=== PATIENT | male | born 1945 | race Hispanic/Latino ===

== ENCOUNTER → 2017-11-13 07:10 | Outpatient (CLI) | payer MEDICARE, OTHER, SELFPAY | PROVIDERS: PCP Nurse Practitioner Gerontology; Visit Provider Urology | DX: C61 Malignant neoplasm of prostate (principal) | CPT/HCPCS: 36415; 84153 ==

== ENCOUNTER → 2018-07-06 10:02 | Outpatient (CLI) | payer MEDICARE, OTHER, SELFPAY ==
--- NOTE | 2018-07-06 | DI.CT.S_ITS ---
PROCEDURE: CT ABDOMEN PELVIS WO CON INDICATIONS: PROSTATE CANCER TECHNIQUE: After the administration of oral contrast, 5 mm thick sections acquired from the diaphragms to the symphysis. 5 mm coronal and sagittal reformats were performed. For radiation dose reduction, the following was used: automated exposure control, adjustment of mA and/or kV according to patient size. COMPARISON: None. FINDINGS: Image quality: Excellent. ABDOMEN: Lung bases: Lung bases are clear. Heart size is normal. Solid organs: Liver is normal in size. Multiple liver cysts, the largest of which measured 3.1 and 2.5 cm respectively. No suspicious liver lesions on noncontrast images. Extreme lung bases are clear. Spleen, pancreas, adrenals, and kidneys are unremarkable. Gallbladder is unremarkable. Peritoneum and bowel: Bowel loops demonstrate normal wall thickness and caliber. No free fluid or air. No abscess cavity. Sigmoid diverticulosis without evidence of diverticulitis. Nodes and vessels: No retroperitoneal or mesenteric adenopathy by size criteria. Aorta and inferior vena cava are normal in size. Miscellaneous: No ventral hernias. PELVIS: Genitourinary: Bladder wall thickness is normal. Enlargement of the prostate. No periprosthetic adenopathy. Miscellaneous: No inguinal hernias or adenopathy. Bones: No suspicious bony lesions. No vertebral body compression fractures. IMPRESSION: No evidence of metastatic prostate carcinoma. Dictated by: Franklin Springer M.D. on 07/06/2018 at 11:40 Approved by: Franklin Springer M.D. on 07/06/2018 at 11:54
--- NOTE | 2018-07-06 | DI.NM.S_ITS ---
PROCEDURE: NM BONE SCAN WHOLE BODY RADIOPHARMACEUTICAL: 20.90 mCi Tc-99m MDP IV. INDICATIONS: PROSTATE CANCER TECHNIQUE: Delayed whole-body scintigrams were obtained approximately 3-4 hours after intravenous injection of radiotracer. Anterior and posterior views were acquired from vertex to feet. Additional left and right oblique views of the pelvis were obtained. COMPARISON: [facility], CT, CT ABDOMEN PELVIS WO CON, 07/06/2018, 11:06. FINDINGS: No areas of relative intense radiotracer uptake identified in the osseous skeleton. Relatively mild radiotracer uptake identified in the shoulders bilaterally, the sternoclavicular joints bilaterally, the cervical spine, the lumbar spine in the left hip compatible with osteoarthritis. No areas of photopenia identified in the osseous skeleton. No abnormal soft tissue uptake identified. Activity in the kidneys is normal and symmetric. IMPRESSION: No evidence of osseous metastatic disease. Dictated by: Ekaterina Gibson MD, PhD on 07/06/2018 at 14:52 Approved by: Ekaterina Gibson MD, PhD on 07/06/2018 at 14:54
== END ==
PROVIDERS: PCP Nurse Practitioner Gerontology; Visit Provider Urology
DX: C61 Malignant neoplasm of prostate (principal)
CPT/HCPCS: 74176; 78306; A9503

== ENCOUNTER → 2019-01-19 09:20 | Outpatient (CLI) | payer MEDICARE, OTHER, SELFPAY ==
--- NOTE | 2019-01-19 | DI.MRI.S_ITS ---
PROCEDURE: MR LUMBAR SPINE WO CON INDICATIONS: Low back pain post bending injury TECHNIQUE: Noncontrast sagittal T1 spin echo and T2 fast echo, sagittal STIR, axial T1 and T2 fast spin echo through the lumbar spine. In cases with scoliosis, additional coronal T2 fast spin echo may be performed. COMPARISON: [facility] Outside Film, CR, XR LUMBAR SPINE 2 OR 3 VIEWS, 11/28/2018, 11:08. FINDINGS: Image quality: Excellent. Alignment and Curvature: There is normal bony alignment. Bone Marrow: Marrow is of normal overall signal. No acute vertebral body compression fractures. Spinal Cord: Conus medullaris terminates at the T12-L1 level. Visualized cord demonstrates normal signal and size. Paraspinous Soft Tissues: No paravertebral masses. T11-T12: No canal stenosis or foraminal stenosis. T12-L1: No canal stenosis or foraminal stenosis. L1-L2: Mild chronic disc height loss. Mild posterior disc plus osteophyte. No canal stenosis. No significant foraminal stenosis. Facet joints are unremarkable. L2-L3: Mild chronic disc height loss. Posterior disc bulge plus osteophyte. Borderline canal stenosis. Bilateral foraminal disc bulges. Facet joints are unremarkable. Mild bilateral foraminal narrowing. L3-L4: Mild bilateral foraminal narrowing. Diffuse disc bulge. Borderline canal stenosis. Mild facet hypertrophy. No significant foraminal narrowing. L4-L5: Mild chronic disc height loss. Mild disc bulge. Borderline canal stenosis. Mild facet joint hypertrophy. Mild right foraminal narrowing. L5-S1: Mild chronic disc height loss. Mild disc bulge. No canal stenosis. Mild facet hypertrophy. Mild bilateral foraminal narrowing. IMPRESSION: 1. Multilevel degenerative disc space loss and mild multilevel lower lumbar facet arthropathy. 2. Multilevel disc bulges. 3. Borderline canal stenosis at L2-L3 through L4-L5. Dictated by: Franklin Springer M.D. on 01/19/2019 at 11:43 Approved by: Franklin Springer M.D. on 01/19/2019 at 11:50
== END ==
PROVIDERS: PCP Nurse Practitioner Gerontology; Visit Provider Orthopaedic Surgery Orthopaedic Surgery of the Spine
DX: M47.816 Spondylosis without myelopathy or radiculopathy, lumbar region (principal); M47.817 Spondylosis without myelopathy or radiculopathy, lumbosacral region; M51.26 Other intervertebral disc displacement, lumbar region; M51.27 Other intervertebral disc displacement, lumbosacral region; M48.061 Spinal stenosis, lumbar region without neurogenic claudication; M48.07 Spinal stenosis, lumbosacral region
CPT/HCPCS: 72148

== ENCOUNTER 2020-10-29 18:10 | Observation (INO) | payer MEDICARE, OTHER, SELFPAY ==
[2020-10-29 18:16] VITALS: BP 125/74; PULSE 116; RESP 15; TEMP 37.4; O2SAT 97; BMI 36.3
--- NOTE | 2020-10-29 18:21 | DI.RAD.S_ITS ---
PROCEDURE: XR CHEST 1V INDICATIONS: suspected sepsis TECHNIQUE: One view of the chest was acquired. COMPARISON: None. FINDINGS: Surgical changes and devices: None. Lungs and pleura: Lungs are clear. No pleural effusions or pneumothorax. Mediastinum: Mediastinal contours appear normal. Top normal heart size. Bones and chest wall: No suspicious bony lesions. Overlying soft tissues appear unremarkable. IMPRESSION: No evidence acute pulmonary process. Dictated by: Franklin Springer M.D. on 10/29/2020 at 20:27 Approved by: Franklin Springer M.D. on 10/29/2020 at 20:28
[2020-10-29] MEDS: SODIUM CHLORIDE 0.9% 1,000 ML 1000 ML IV (18:38)
[2020-10-29 18:39] LABS: Add Manual Diff / Slide Review NO; Basophils Absolute Auto 0 /uL (0-100); Basophils Percent Auto 0.3 % (0-2); Eosinophils Absolute Auto 100 /uL (0-450); Eosinophils Percent Auto 0.5 % (2-4); Hematocrit 42.8 % (41-53); Hemoglobin 14.4 g/dL (13.5-17.5); Lymphocytes Absolute Auto 700 /uL (1100-4500); Lymphocytes Percent Auto 5.6 % (25-40); Mean Corpuscular HGB Conc 33.6 % (30-36); Mean Corpuscular Hemoglobin 29.9 PG (26-34); Monocytes Absolute Auto 900 /uL (0-900); Monocytes Percent Auto 7.6 % (3-14); Neutrophils Absolute Auto 10600 /uL (1500-7000); Platelet Count 183 X10^3/uL (150-400); Red Blood Cell Count 4.81 X10^6/uL (4.5-5.9); Red Cell Distribution Width 13.8 % (11.6-14.8); White Blood Cell Count 12.3 X10^3/uL (4.5-11.0)
[2020-10-29 18:50] LABS: INR 1.1 (0.9-1.3); Prothrombin Time 11.9 SECONDS (10.1-12.7)
[2020-10-29 18:51] LABS: PTT Partial Thromboplastin Tim 28 SECONDS (26.4-36.2)
[2020-10-29 18:54] LABS: Alanine Aminotransferase 28 IU/L (<50); Albumin 4.2 g/dL (3.5-5.0); Albumin Globulin Ratio 1.4 (1.0-2.8); Alkaline Phosphatase 83 U/L (38-126); Aspartate Aminotransferase 30 IU/L (17-59); BUN Creatinine Ratio 12.6 (6-22); Bilirubin Total 0.9 mg/dL (0.2-1.3); Blood Urea Nitrogen 24 mg/dL (9-20); Carbon Dioxide 17 mmol/L (22-32); Chloride 105 mmol/L (98-107); Estimated Glomerular Filt Rate 34.7 mL/min (>60); Globulin 3.1 g/dL (1.7-4.1); Glucose 169 mg/dL (80-110); HEMOLYSIS 17 (0-50); Lactate (Lactic Acid) 2.2 mmol/L (0.7-2.1); Lipase 178 U/L (23-300); Sodium 135 mmol/L (137-145); Total Protein 7.3 g/dL (6.3-8.2)
[2020-10-29 19:10] LABS: Procalcitonin 1.97 ng/mL (<0.5)
[2020-10-29 20:21] VITALS: BP 122/64; PULSE 67; RESP 18; O2SAT 99
--- NOTE | 2020-10-29 20:30 | ED_ITS ---
HPI - Recheck/Abnormal Lab/Rx General Chief Complaint: Recheck/Abnormal Lab/Rx Stated Complaint: Postate Biopsy, Chills, Light Headed, Suspects Inf Time Seen by Provider: 10/29/20 18:23 Source: patient Mode of arrival: Ambulatory Limitations: no limitations History of Present Illness HPI narrative: 75-year-old male nonsmoker with history of hypertension presents with a chief complaint of fatigue, fever and chills and some lightheadedness. He states he had been in his normal state of health until the aftermath of a recent prostate biopsy a few days ago. He denies any runny nose or sore throat. He has no chest pain, shortness of breath or cough. He denies nausea, vomiting or diarrhea. He had taken ciprofloxacin as directed by his urologist in the near aftermath but presents tonight under the above-stated circumstances Initial visit (ago): day(s) Related Data Home Medications Medication Instructions Recorded Confirmed atorvastatin [Lipitor] 20 mg PO BEDTIME 10/30/20 10/30/20 clobetasol See Rx Instructions .ROUTE 10/30/20 10/30/20 .COMPLEX PRN febuxostat 40 mg PO DAILY 10/30/20 10/30/20 losartan 25 mg PO DAILY 10/30/20 10/30/20 spironolactone 50 mg PO BEDTIME 10/30/20 10/30/20 sucralfate 1 g PO AC 10/30/20 10/30/20 tamsulosin 0.4 mg PO ONCE PM 10/30/20 10/30/20 Allergies Allergy/AdvReac Type Severity Reaction Status Date / Time Felodipine Allergy Unknown Uncoded 10/29/20 18:15 Lisinopril Allergy Unknown Uncoded 10/29/20 18:15 Terazosin Allergy Unknown Uncoded 10/29/20 18:15 Review of Systems Constitutional Constitutional: Reports chills, Reports fatigue, Reports fever(s), Denies frequent falls, Denies lethargy and Reports weakness Eyes Eyes: Denies change in vision, Denies eye discharge, Denies irritation and Denies loss of vision ENT Ears, Nose, Mouth, and Throat: Denies change in voice, Denies dizziness, Denies neck pain, Denies sore throat and Denies throat swelling Cardiovascular Cardiovascular: Denies chest pain, Denies irregular heart rhythm, Denies lightheadedness, Denies palpitations, Denies dyspnea, Denies dyspnea on exertion and Denies orthopnea Respiratory Respiratory: Denies cough, Denies dyspnea, Denies dyspnea on exertion and Denies wheezing Gastrointestinal Gastrointestinal: Denies abdominal pain, Denies change in bowel habits, Denies diarrhea, Denies nausea and Denies vomiting Musculoskeletal Musculoskeletal: Denies neck pain and Denies numbness Integumentary/Breasts Skin/Breast: Denies pruritus, Denies erythema, Denies rash and Denies wounds Neurologic Neurologic: Denies behavioral changes, Denies confusion, Denies dizziness, Denies frequent falls, Denies loss of vision, Denies numbness and Reports weakness Psychiatric Psychiatric: Denies anxiety, Denies behavioral changes, Denies confusion, Denies depression, Denies homicidal ideation and Denies suicidal ideation Endocrine Endocrine: Reports fatigue, Denies flushing and Denies palpitations Hematologic/Lymphatic Hematologic/Lymphatic: Denies easy bruising Allergic/Immunologic Allergic/Immunologic: Denies urticaria, Denies throat swelling and Denies wheezing Patient History Social History household members: spouse Smoking Status: Unknown if ever smoked Smoking Status: Unknown if ever smoked alcohol intake frequency: holidays/special occasions only Substance Use Type: does not use Exam Narrative Exam Narrative: GENERAL: [75] year old patient appears stated age. Well- nourished, well-developed patient, in mild distress. HEAD: Atraumatic. Normocephalic. EYES: Pupils equal round and reactive. Extraocular motions intact. No scleral icterus. No injection or drainage. ENT: Nose without bleeding, purulent drainage. Throat without erythema, tonsillar hypertrophy or exudate. Airway patent. NECK: Trachea midline. Non tender CARDIOVASCULAR: Tachycardic but regular rhythm without murmurs, gallops, or rubs. RESPIRATORY: Clear to auscultation. Breath sounds equal bilaterally. No wheezes, rales, or rhonchi. GASTROINTESTINAL: Abdomen soft, non-tender, nondistended. EXTREMITIES: No edema or joint tenderness. BACK: Nontender without deformity or crepitance. No flank tenderness. NEURO: AOx3. SKIN: No rash or erythema of visible areas Initial Vital Signs Initial Vital Signs: Vital Signs Temperature 99.3 F 10/29/20 18:16 Pulse Rate 116 H 05/27/21 18:16 Respiratory Rate 15 10/29/20 18:16 Blood Pressure 125/74 10/29/20 18:16 Pulse Oximetry 97 10/29/20 18:16 Course Orders Ordered: ED Orders 10/29/20 18:21 XR chest 1V Stat EKG-12 Lead Stat RT Consult Eval and Treat Now 10/29/20 18:22 Complete Blood Count AUTO DIFF Stat Comprehensive Metabolic Panel Stat D Dimer Urgent Lactate (Lactic Acid) Stat Lipase Stat Magnesium Urgent Partial Thromboplastin Time Stat Procalcitonin Stat Prothrombin Time INR Stat 10/29/20 18:50 Blood Culture Stat 10/29/20 22:09 Education, smoking cessation ONGOING 10/29/20 22:13 Urine Culture Stat 10/29/20 23:02 Respiratory Panel (Film Array) Stat 10/30/20 05:00 Complete Blood Count AUTO DIFF DAILY Comprehensive Metabolic Panel DAILY 10/31/20 05:00 Complete Blood Count AUTO DIFF DAILY Comprehensive Metabolic Panel DAILY 11/01/20 05:00 Complete Blood Count AUTO DIFF DAILY Comprehensive Metabolic Panel DAILY Acetaminophen (Acetaminophen 325 Mg Tablet) 650 mg PO Q6HR PRN PRN Reason: Fever/Mild Pain (1-3) Docusate Sodium (Docusate 100 Mg Capsule) 100 mg PO BID [facility] Piperacillin Sod/Tazobactam (Sod 4.5 gm/ Sodium Chloride) 100 mls @ 25 mls/hr IV Q6H [facility] Last Admin: 10/30/20 01:29 Dose: 25 mls/hr Documented by: CHITRA Magnesium Hydroxide (Magnesium Hydroxide 30 Ml Udc) 30 ml PO DAILY PRN PRN Reason: Constipation Naloxone HCl (Naloxone 0.4 Mg/Ml Vial) 0.2 mg IV Q2MIN PRN PRN Reason: Opiate Reversal Ondansetron HCl (Ondansetron 4 Mg/2 Ml Inj) 4 mg IV Q8HR PRN PRN Reason: Nausea And Vomiting Oxycodone HCl (Oxycodone Ir 5 Mg Tablet) 5 mg PO Q6HR PRN PRN Reason: Pain, Moderate (4-6) Pantoprazole Sodium (Pantoprazole Dr 20 Mg Tablet) 20 mg PO 0600 [facility] Sennosides (Sennosides 8.6 Mg Tablet) 17.2 mg PO BEDTIME [facility] Discontinued Medications Hydromorphone HCl (Hydromorphone 1 Mg Inj) 1 mg IV NOW ONE Stop: 10/29/20 22:39 Last Admin: 10/30/20 01:28 Dose: Not Given Documented by: CHITRA Sodium Chloride (Normal Saline 0.9%) 1,000 mls @ 1,000 mls/hr IV BOLUS ONE Stop: 10/29/20 19:20 Last Infusion: 10/29/20 20:31 Dose: 0 mls/hr Documented by: Admin: 10/29/20 18:38 Dose: 1,000 mls/hr Documented by: ERAN Sodium Chloride (Normal Saline 0.9%) 1,776 mls @ 592 mls/hr 30 ml/kg infuse over 3 hr (1776 ml) IV NOW ONE Stop: 10/29/20 23:33 Last Infusion: 10/29/20 22:30 Dose: 0 mls/hr Documented by: Admin: 10/29/20 21:15 Dose: 592 mls/hr Documented by: ERAN Ceftriaxone Sodium 2,000 mg/ (Sodium Chloride) 100 mls @ 200 mls/hr IV NOW ONE Stop: 10/29/20 20:40 Last Infusion: 10/29/20 22:01 Dose: 0 mls/hr Documented by: Admin: 10/29/20 21:15 Dose: 200 mls/hr Documented by: ERAN Piperacillin Sod/Tazobactam (Sod 4.5 gm/ Sodium Chloride) 100 mls @ 25 mls/hr IV Q6HR [facility] Vital Signs Vital signs: Vital Signs - 8 hr 10/29/20 20:21 Pulse Rate 67 Respiratory Rate 18 Blood Pressure 122/64 Pulse Oximetry 99 MDM - Recheck/Abnormal Lab/Rx Lab Data Result diagrams: 10/29/20 18:22 10/29/20 18:22 Labs: Lab Results 10/29/20 10/29/20 10/29/20 Range/Units 18:22 18:22 18:22 WBC 12.3 H (4.5-11.0) X10^3/uL RBC 4.81 (4.5-5.9) X10^6/uL Hgb 14.4 (13.5-17.5) g/dL Hct 42.8 (41-53) % MCV 89.0 (80-100) fL MCH 29.9 (26-34) PG MCHC 33.6 (30-36) % RDW 13.8 (11.6-14.8) % Plt Count 183 (150-400) X10^3/uL Neut % (Auto) 86.0 H (50-75) % Lymph % (Auto) 5.6 L (25-40) % Tyrrell % (Auto) 7.6 (3-14) % Eos % (Auto) 0.5 L (2-4) % Baso % (Auto) 0.3 (0-2) % Neut # (Auto) 88589 H (4505-2185) /uL Lymph # (Auto) 700 L (7755-3987) /uL Tyrrell # (Auto) 900 (0-900) /uL Eos # (Auto) 100 (0-450) /uL Baso # (Auto) 0 (0-100) /uL PT 11.9 (10.1-12.7) SECONDS INR 1.1 (0.9-1.3) APTT 28 (26.4-36.2) SECONDS D-Dimer (<230) ng/mL Sodium 135 L (137-145) mmol/L Potassium 4.0 (3.4-5.1) mmol/L Chloride 105 (98-107) mmol/L Carbon Dioxide 17 L (22-32) mmol/L BUN 24 H (9-20) mg/dL Creatinine 1.90 H (0.66-1.25) mg/dL Estimated GFR 34.7 L (>60) mL/min BUN/Creatinine Ratio 12.6 (6-22) Glucose 169 H (80-110) mg/dL Lactate (0.7-2.1) mmol/L Calcium 9.0 (8.4-10.2) mg/dL Magnesium (1.6-2.3) mg/dL Total Bilirubin 0.9 (0.2-1.3) mg/dL AST 30 (17-59) IU/L ALT 28 (<50) IU/L Alkaline Phosphatase 83 (38-126) U/L Total Protein 7.3 (6.3-8.2) g/dL Albumin 4.2 (3.5-5.0) g/dL Globulin 3.1 (1.7-4.1) g/dL Albumin/Globulin Ratio 1.4 (1.0-2.8) Lipase 178 (23-300) U/L Procalcitonin 1.97 H (<0.5) ng/mL 10/29/20 10/29/20 10/29/20 Range/Units 18:22 18:22 18:22 WBC (4.5-11.0) X10^3/uL RBC (4.5-5.9) X10^6/uL Hgb (13.5-17.5) g/dL Hct (41-53) % MCV (80-100) fL MCH (26-34) PG MCHC (30-36) % RDW (11.6-14.8) % Plt Count (150-400) X10^3/uL Neut % (Auto) (50-75) % Lymph % (Auto) (25-40) % Tyrrell % (Auto) (3-14) % Eos % (Auto) (2-4) % Baso % (Auto) (0-2) % Neut # (Auto) (2299-6441) /uL Lymph # (Auto) (8569-6833) /uL Tyrrell # (Auto) (0-900) /uL Eos # (Auto) (0-450) /uL Baso # (Auto) (0-100) /uL PT (10.1-12.7) SECONDS INR (0.9-1.3) APTT (26.4-36.2) SECONDS D-Dimer 712 H (<230) ng/mL Sodium (137-145) mmol/L Potassium (3.4-5.1) mmol/L Chloride (98-107) mmol/L Carbon Dioxide (22-32) mmol/L BUN (9-20) mg/dL Creatinine (0.66-1.25) mg/dL Estimated GFR (>60) mL/min BUN/Creatinine Ratio (6-22) Glucose (80-110) mg/dL Lactate 2.2 H (0.7-2.1) mmol/L Calcium (8.4-10.2) mg/dL Magnesium 1.5 L (1.6-2.3) mg/dL Total Bilirubin (0.2-1.3) mg/dL AST (17-59) IU/L ALT (<50) IU/L Alkaline Phosphatase (38-126) U/L Total Protein (6.3-8.2) g/dL Albumin (3.5-5.0) g/dL Globulin (1.7-4.1) g/dL Albumin/Globulin Ratio (1.0-2.8) Lipase (23-300) U/L Procalcitonin (<0.5) ng/mL 10/29/20 Range/Units 21:00 WBC (4.5-11.0) X10^3/uL RBC (4.5-5.9) X10^6/uL Hgb (13.5-17.5) g/dL Hct (41-53) % MCV (80-100) fL MCH (26-34) PG MCHC (30-36) % RDW (11.6-14.8) % Plt Count (150-400) X10^3/uL Neut % (Auto) (50-75) % Lymph % (Auto) (25-40) % Tyrrell % (Auto) (3-14) % Eos % (Auto) (2-4) % Baso % (Auto) (0-2) % Neut # (Auto) (0527-0883) /uL Lymph # (Auto) (9322-8694) /uL Tyrrell # (Auto) (0-900) /uL Eos # (Auto) (0-450) /uL Baso # (Auto) (0-100) /uL PT (10.1-12.7) SECONDS INR (0.9-1.3) APTT (26.4-36.2) SECONDS D-Dimer (<230) ng/mL Sodium (137-145) mmol/L Potassium (3.4-5.1) mmol/L Chloride (98-107) mmol/L Carbon Dioxide (22-32) mmol/L BUN (9-20) mg/dL Creatinine (0.66-1.25) mg/dL Estimated GFR (>60) mL/min BUN/Creatinine Ratio (6-22) Glucose (80-110) mg/dL Lactate 2.2 H (0.7-2.1) mmol/L Calcium (8.4-10.2) mg/dL Magnesium (1.6-2.3) mg/dL Total Bilirubin (0.2-1.3) mg/dL AST (17-59) IU/L ALT (<50) IU/L Alkaline Phosphatase (38-126) U/L Total Protein (6.3-8.2) g/dL Albumin (3.5-5.0) g/dL Globulin (1.7-4.1) g/dL Albumin/Globulin Ratio (1.0-2.8) Lipase (23-300) U/L Procalcitonin (<0.5) ng/mL MDM Narrative Medical decision making narrative: 75-year-old male with recent surgical procedure presents with fever and chills as well as tachycardia. He has an elevated white blood cell count, elevated lactate and procalcitonin. He is treated with sepsis protocol including early blood cultures and lactate prior to the administration of antibiotics. He is given 30 cc/kilogram of IV fluid for ideal body weight given BMI greater than 31. Patient is septic, presumed from his recent biopsy and will require admission for stabilization of his condition an ongoing evaluation along with IV antibiotics. Discharge Plan Departure Patient Disposition: Admitted As Inpatient Clinical Impression: Sepsis Qualifiers: Sepsis type: sepsis due to unspecified organism Sepsis acute organ dysfunction status: with acute organ dysfunction Severe sepsis acute organ dysfunction type: unspecified Severe sepsis shock status: without septic shock Qualified Code(s): A41.9 - Sepsis, unspecified organism Admit Date/Time: 10/29/20 22:34 Admit Provider: Cindy West
[2020-10-29 20:35] LABS: Reflexed Lactate in 2 Hours Y
[2020-10-29 21:14] LABS: Lactate 2HR (Lactic Acid Rflx) 2.2 mmol/L (0.7-2.1)
[2020-10-29] MEDS: SODIUM CHLORIDE 0.9% 1,776 ML 592 ML IV (21:15)
[2020-10-29] MEDS: cefTRIAXone 2,000 MG in SODIUM CHLORIDE 0.9% 100 ML 200 ML IV (21:15)
[2020-10-29 22:28] LABS: Magnesium 1.5 mg/dL (1.6-2.3)
--- NOTE | 2020-10-29 22:31 | PC.NURSE ---
Pt received total [address] head's order. Pt received 1L NS per nursing orders,then Dr Head ordered 1776. Dr Head only wanted total 1776,after 2nd order pt received 776ml NS.
[2020-10-29 22:41] LABS: D Dimer 712 ng/mL (<230)
[2020-10-29 23:15] VITALS: BP 135/67; PULSE 69; RESP 18; O2SAT 99
[2020-10-30] VITALS (8 sets, daily range): BP systolic 118–129; BP diastolic 68–74; PULSE 70–77; RESP 16–24; TEMP 36.3–36.8; O2SAT 97–98; BMI 36.3
[2020-10-30] MEDS: PIPERACILLIN/TAZO 4.5 GM in SODIUM CHLORIDE 0.9% 100 ML 25 ML IV ×2 (01:29→06:40)
[2020-10-30 01:36] LABS: Adenovirus Not Detected (Not Detect); B. parapertussis Not Detected (Not Detecte); Bordetella pertussis Not Detected (Not Detecte); Chlamydophila pneumoniae Not Detected (Not Detect); Coronavirus 229E Not Detected (Not Detect); Coronavirus HKU1 Not Detected (Not Detect); Coronavirus NL 63 Not Detected (Not Detect); Coronavirus OC43 Not Detected (Not Detect); Human Metapneumovirus Not Detected (Not Detect); Human Rhinovirus/Enterovirus Not Detected (Not Detect); Influenza A Not Detected (Not Detect); Influenza B Not Detected (Not Detect); Mycoplasma pneumoniae Not Detected (Not Detect); Parainfluenza Virus 1 Not Detected (Not Detect); Parainfluenza Virus 2 Not Detected (Not Detect); Parainfluenza Virus 3 Not Detected (Not Detect); Parainfluenza Virus 4 Not Detected (Not Detect); Respiratory Syncytial Virus Not Detected (Not Detect); SARS- CoV-2 Not Detected (Not Detecte)
--- NOTE | 2020-10-30 03:33 | PC.NURSE ---
Got to unit at 22:30 from ED. VSS. Erasmo pain. No nausea or vomiting. Independent in room. Calls appropriately, bed low, call light within reach.
--- NOTE | 2020-10-30 04:56 | P.HP_ITS ---
History of Present Illness History of Present Illness Date Patient Seen: 10/29/20 Time Patient Seen: 22:15 Chief complaint: Postate Biopsy, Chills, Light Headed, Suspects Inf Narrative: Patient is a 75-year-old male Star Aquino with a chief complaint of fatigue, fever and chills and some lightheadedness that presented last night. He states he had been in his normal state of health until the aftermath of a recent prostate biopsy on 10/27/[address] Laureano at [facility]. Patient states that he has had elevated PSA is required to yearly prostate biop sies to monitor for prostate cancer. He has not had this issue before. Patient states that he often has some mild bleeding in his urine in the 1st few days following the biopsy but then quickly resolves he states he has had blood in his urine the past 2 days but as of today he has had none and no blood in his stool, swelling or inflammation of his genitals or rectal area. He denies any runny nos e or sore throat. He has no chest pain, shortness of breath or cough. He denies nausea, vomiting or diarrhea. He had taken ciprofloxacin as directed by his urologist in the near aftermath but presents tonight under the above-stated circumstances. Patient states he also is having shortness of breath with activity which she has been experiencing over the past year whenever he lifts something heavy he can walk approximately 30-35 minute it is or 1 mi on his treadmill without shortness of breath but any lifting activities cause of shortness of breath. 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 Patient's vitals upon admit temp 99.3?, BP 125/74, HR 116, RR 15, O2 saturation 97% on room air, PaO2 96, FiO2 22. Patient's labs upon admit WBC 12.3 with a left shift, neut# 10,600, sofa score of 1, Na 135, BUN 24, HC03 17, creatinine 1.9, glucose 169, EGFR 34.7, lactate 2.2, lipase WNL, procalcitonin 1.97, D- dimer 712 likely related to prostate biopsy but maybe you a result of infection. Respiratory panel negative, COVID negative, CXR:No evidence acute pulmonary process. Patient History Medical History (Updated 10/30/20 @ 05:10 by AUSTIN Aguayo-DEMETRIS) CKD stage 3 secondary to diabetes History of gastric ulcer History of rectal bleeding Hypertension, essential Obesity (BMI 35.0-39.9 without comorbidity) Peptic ulcer disease Psoriasis Sleep apnea Surgical History (Updated 10/30/20 @ 05:10 by AUSTIN Aguayo-DEMETRIS) History of umbilical hernia repair Hx of blepharoplasty Family & Social History Family History (Updated 10/30/20 @ 05:11 by AUSTIN Aguayo-DEMETRIS) Father Cirrhosis Mother Gallstones Social History: household members spouse, retired, in [place] Prior Living Arrangements Apartment/Condo Safety & Behavioral: Feels Safe in Current Yes Environment Been Physically Hurt or No Threatened By a Person Tobacco & Substance use: Smoking Status never smoked alcohol intake frequency quit 5 years ago Substance Use Type does not use Meds Home Medications and Allergies Home Medications Medication Instructions Recorded Confirmed Type Mycelex 1 % TOPICAL PRN PRN 10/30/20 10/30/20 History Vitamin D3 2,000 units PO DAILY 10/30/20 10/30/20 History aspirin [Adult Low Dose Aspirin] 81 mg PO DAILY 10/30/20 10/30/20 History atorvastatin [Lipitor] 20 mg PO BEDTIME 10/30/20 10/30/20 History cetirizine [Zyrtec] 10 mg PO DAILY PRN 10/30/20 10/30/20 History clobetasol See Rx Instructions .ROUTE 10/30/20 10/30/20 History .COMPLEX PRN colchicine 0.6 mg PO PRN PRN 10/30/20 10/30/20 History famotidine 20 mg PO BID 10/30/20 10/30/20 History febuxostat 40 mg PO DAILY 10/30/20 10/30/20 History losartan 25 mg PO DAILY 10/30/20 10/30/20 History omeprazole 20 mg PO DAILY 10/30/20 10/30/20 History ranitidine HCl [Zantac] 150 mg PO PRN PRN 10/30/20 10/30/20 History spironolactone 50 mg PO BEDTIME 10/30/20 10/30/20 History sucralfate 1 g PO AC 10/30/20 10/30/20 History tamsulosin 0.4 mg PO ONCE PM 10/30/20 10/30/20 History Allergies Allergy/AdvReac Type Severity Reaction Status Date / Time Felodipine Allergy Unknown Uncoded 10/29/20 18:15 Lisinopril Allergy Unknown Uncoded 10/29/20 18:15 Terazosin Allergy Unknown Uncoded 10/29/20 18:15 Review of Systems Review of Systems ROS: Yes All systems reviewed with the patient and are negative except as otherwise documented Exam Vital Signs (past 8 hours): - 10/29/20 23:15 10/30/20 00:00 10/30/20 01:58 Temperature 98.3 F Pulse Rate 69 77 Respiratory Rate 18 24 Blood Pressure 135/67 120/68 Pulse Oximetry 99 98 98 Oxygen Delivery Method Room Air Oxygen Flow Rate 0 Narrative Exam Narrative: General: Patient is a well-developed, well-nourished in no distress at this time. HEENT: Normocephalic, atraumatic, extraocular muscles intact, oral pharynx is clear and mucous membranes are moist. Neck is supple and symmetric, trachea is midline, no adenopathy, no thyroid enlargement, nontender, no masses palpated. Negative for JVD Chest: Normal AP diameter and contour without kyphoscoliosis, no nasal flaring, retractions, or tachypneic labored Lungs: Auscultation of all lung florian are clear without adventitious sounds, wheezes, rhonchi, or rales. Cardio: S1 & S2 with regular rate and rhythm without murmur, rubs, or gallops, no carotid bruit, no cardiac pulsations present. Abdomen: Soft nontender, negative for organomegaly, or masses. Bowel sounds are present in all 4 quadrants without guarding or rebound, no CVA tenderness. Genitals/Rectal: Upon visual inspection no erythema, inflammation pain or signs of infection Musculoskeletal: Muscle strength and tone are equal within normal limits, no deformity, crepitus, effusions, cyanosis, clubbing or edema present. Full range of motion intact radial and pedal pulses are normal. Skin: Warm dry and intact without rashes, ulcerations or petechiae. Neuro: Alert and orientated x3, strength is +5/5 in all extremities, sensation to touch intact, no gross deficits noted of cranial nerves. Psych: Patient has a well-kept appearance, appropriate affect, mental status attitude thought context and judgment are appropriate for age. Objective Labs Result Diagrams: 10/29/20 18:22 10/29/20 18:22 Labs: Laboratory Results - last 24 hr 10/29/20 10/29/20 10/29/20 18:22 18:22 18:22 WBC 12.3 H RBC 4.81 Hgb 14.4 Hct 42.8 MCV 89.0 MCH 29.9 MCHC 33.6 RDW 13.8 Plt Count 183 Neut % (Auto) 86.0 H Lymph % (Auto) 5.6 L Alexander % (Auto) 7.6 Eos % (Auto) 0.5 L Baso % (Auto) 0.3 Neut # (Auto) 32396 H Lymph # (Auto) 700 L Alexander # (Auto) 900 Eos # (Auto) 100 Baso # (Auto) 0 PT 11.9 INR 1.1 APTT 28 D-Dimer Sodium 135 L Potassium 4.0 Chloride 105 Carbon Dioxide 17 L BUN 24 H Creatinine 1.90 H Estimated GFR 34.7 L BUN/Creatinine Ratio 12.6 Glucose 169 H Lactate Calcium 9.0 Magnesium Total Bilirubin 0.9 AST 30 ALT 28 Alkaline Phosphatase 83 Total Protein 7.3 Albumin 4.2 Globulin 3.1 Albumin/Globulin Ratio 1.4 Lipase 178 Procalcitonin 1.97 H Chlamy pneumoniae PCR Adenovirus (PCR) B. pertussis DNA (PCR) B.parapertussis DNA PCR Coronavirus OC43 (PCR) Coronavirus HKU1 (PCR) Coronavirus 229E (PCR) SARS-CoV-2 (PCR) Coronavirus NL63 (PCR) Human Metapneumovir PCR Influenza Type A (PCR) Influenza Type B (PCR) M. pneumoniae (PCR) Parainfluenza 1 (PCR) Parainfluenza 2 (PCR) Parainfluenza 3 (PCR) Parainfluenza 4 (PCR) RSV (PCR) Entero/Rhino (PCR) 10/29/20 10/29/20 10/29/20 18:22 18:22 18:22 WBC RBC Hgb Hct MCV MCH MCHC RDW Plt Count Neut % (Auto) Lymph % (Auto) Alexander % (Auto) Eos % (Auto) Baso % (Auto) Neut # (Auto) Lymph # (Auto) Alexander # (Auto) Eos # (Auto) Baso # (Auto) PT INR APTT D-Dimer 712 H Sodium Potassium Chloride Carbon Dioxide BUN Creatinine Estimated GFR BUN/Creatinine Ratio Glucose Lactate 2.2 H Calcium Magnesium 1.5 L Total Bilirubin AST ALT Alkaline Phosphatase Total Protein Albumin Globulin Albumin/Globulin Ratio Lipase Procalcitonin Chlamy pneumoniae PCR Adenovirus (PCR) B. pertussis DNA (PCR) B.parapertussis DNA PCR Coronavirus OC43 (PCR) Coronavirus HKU1 (PCR) Coronavirus 229E (PCR) SARS-CoV-2 (PCR) Coronavirus NL63 (PCR) Human Metapneumovir PCR Influenza Type A (PCR) Influenza Type B (PCR) M. pneumoniae (PCR) Parainfluenza 1 (PCR) Parainfluenza 2 (PCR) Parainfluenza 3 (PCR) Parainfluenza 4 (PCR) RSV (PCR) Entero/Rhino (PCR) 10/29/20 10/29/20 21:00 23:02 WBC RBC Hgb Hct MCV MCH MCHC RDW Plt Count Neut % (Auto) Lymph % (Auto) Alexander % (Auto) Eos % (Auto) Baso % (Auto) Neut # (Auto) Lymph # (Auto) Alexander # (Auto) Eos # (Auto) Baso # (Auto) PT INR APTT D-Dimer Sodium Potassium Chloride Carbon Dioxide BUN Creatinine Estimated GFR BUN/Creatinine Ratio Glucose Lactate 2.2 H Calcium Magnesium Total Bilirubin AST ALT Alkaline Phosphatase Total Protein Albumin Globulin Albumin/Globulin Ratio Lipase Procalcitonin Chlamy pneumoniae PCR Not detected Adenovirus (PCR) Not detected B. pertussis DNA (PCR) Not detected B.parapertussis DNA PCR Not detected Coronavirus OC43 (PCR) Not detected Coronavirus HKU1 (PCR) Not detected Coronavirus 229E (PCR) Not detected SARS-CoV-2 (PCR) Not detected Coronavirus NL63 (PCR) Not detected Human Metapneumovir PCR Not detected Influenza Type A (PCR) Not detected Influenza Type B (PCR) Not detected M. pneumoniae (PCR) Not detected Parainfluenza 1 (PCR) Not detected Parainfluenza 2 (PCR) Not detected Parainfluenza 3 (PCR) Not detected Parainfluenza 4 (PCR) Not detected RSV (PCR) Not detected Entero/Rhino (PCR) Not detected Assessment & Plan Assessment & Plan narrative: Patient admitted for fever of unknown origin with leukocytosis suspected early sepsis. Patient's estimated length of stay to be less than 2 midnights. 1. Fever of unknown origin with presenting tachycardia and tachypnea,(suspect infection/bacteremia with risk of progression to sepsis) acute, present on admission, stable, in the setting of prostate biopsy (elevated PSA-surveillance for prostate cancer) within 48 hours as evidence by elevated white blood cells 12.3 with a left shift, neutrophils 10,600, lactate 2.2, procalcitonin 1.97, D- dimer 712. Sofa score: 1 -vitals upon admit temp 99.3?, BP 125/74, HR 116, RR 15, O2 saturation 97% on room air, PaO2 96, FiO2 22. Patient's labs upon admit WBC 12.3 with a left shift, neut# 10,600, sofa score of 1, Na 135, BUN 24, HC03 17, creatinine 1.9, glucose 169, EGFR 34.7, lactate 2.2, lipase WNL, procalcitonin 1.97, D-dimer 712 likely related to prostate biopsy but maybe you a result of infection. Respiratory panel negative, COVID negative, CXR:No evidence acute pulmonary process. Suspect patient is in early sepsis infection/bacteremia resulting from prostate biopsy and at risk for progressing to sepsis. Patient does not have elevated r espiratory rate altered mentation or hypotension. -patient admitted to acute care medicine, vital signs q.4 hours, intake and output monitored Q shift, weight measure daily, diet: Heart healthy -in the ED patient was fluid resuscitation per sepsis protocol, given Rocephin 2 gms -medication: ordered Zosyn 4.5 mg q.6 hours. Broad-spectrum agent (Gram- negative bacillary bacteremia) with anti pseudomonal activity suspect infection source: -blood and urine Gram stain and cultures ordered, A1c, and daily CBC and CMP. -continue patient's tamsulosin 2. Essential hypertension, chronic, not present on admission secondary to hyperlipidemia, chronic, not present on admission, in the setting chronic kidney disease stage 3 moderate to severe, acute on chronic, present on admission -as evidenced by BUN 24, HC03 17, creatinine 1.9, EGFR 34.7 -Continue patient's: Lipitor, famotidine,febuxostat, losartan, spirolactone. 3. Peptic ulcer disease with a history of gastric ulcer, chronic, not present on admission -Continue patients sucralfate. 4. Obesity as evidenced by BMI of 37.1, acute on chronic, present on admission -consideration will be given to dietary counseling Code status: Full code Surrogate decision maker: Spouse Mercedez ESPARZA PCR: Negative DVT/VTE prophylaxis: Contraindicated due to recent prostate biopsy, history of rectal bleed as well as gastric ulcer bleeding, SCDs only Scores GCS Sarah coma scale eye opening: Spontaneous Sarah coma scale verbal response: Orientated Sarah coma scale motor response: Obey commands [place] coma scale total score: 15 Wells' Criteria for PE Clinical signs and symptoms of DVT: No PE is #1 Dx or equally likely: No Heart rate > 100: Yes Immobilization at least 3 days or surg in previous 4 weeks: No History of PE or DVT: No Hemoptysis: No Malignancy w/Treatment within 6 months or palliative: No Wells' PE Score total: 1.5 Quality MIPS - Admit I confirm the patient?s Advance Care Plan is present, Code status is documented, Surrogate decision maker is in patient?s record [If Yes, STOP here]: Yes
[2020-10-30 06:35] LABS: Alanine Aminotransferase 22 IU/L (<50); Albumin 3.2 g/dL (3.5-5.0); Albumin Globulin Ratio 1.1 (1.0-2.8); Alkaline Phosphatase 59 U/L (38-126); Aspartate Aminotransferase 23 IU/L (17-59); BUN Creatinine Ratio 12.7 (6-22); Bilirubin Total 0.9 mg/dL (0.2-1.3); Blood Urea Nitrogen 20 mg/dL (9-20); Calcium 8.4 mg/dL (8.4-10.2); Carbon Dioxide 20 mmol/L (22-32); Chloride 111 mmol/L (98-107); Globulin 2.9 g/dL (1.7-4.1); Glucose 116 mg/dL (80-110); HEMOLYSIS < 15 (0-50); Potassium 3.7 mmol/L (3.4-5.1); Sodium 137 mmol/L (137-145); Total Protein 6.1 g/dL (6.3-8.2)
[2020-10-30] MEDS: PANTOPRAZOLE DR 20 MG TABLET PO (06:40)
[2020-10-30 06:56] LABS: Add Manual Diff / Slide Review NO; Basophils Absolute Auto 0 /uL (0-100); Basophils Percent Auto 0.3 % (0-2); Eosinophils Absolute Auto 100 /uL (0-450); Eosinophils Percent Auto 1.5 % (2-4); Hematocrit 36.5 % (41-53); Hemoglobin 12.3 g/dL (13.5-17.5); Lymphocytes Absolute Auto 800 /uL (1100-4500); Lymphocytes Percent Auto 9.1 % (25-40); Mean Corpuscular HGB Conc 33.8 % (30-36); Mean Corpuscular Volume 88.7 fL (80-100); Monocytes Absolute Auto 1000 /uL (0-900); Neutrophils Absolute Auto 7200 /uL (1500-7000); Neutrophils Percent Auto 78.1 % (50-75); Platelet Count 151 X10^3/uL (150-400); Red Blood Cell Count 4.12 X10^6/uL (4.5-5.9); Red Cell Distribution Width 13.7 % (11.6-14.8); White Blood Cell Count 9.2 X10^3/uL (4.5-11.0)
[2020-10-30 06:58] LABS: Hemoglobin A1C% w Est Avg Glu 6.3 % (4.0-6.0)
[2020-10-30] MEDS: SUCRALFATE 1 GM TABLET PO ×2 (07:48→12:17)
[2020-10-30] MEDS: DOCUSATE 100 MG CAPSULE PO (08:52)
[2020-10-30] MEDS: ASPIRIN 81 MG CHEW TAB PO (08:52)
[2020-10-30] MEDS: FAMOTIDINE 20 MG TABLET PO (08:52)
[2020-10-30] MEDS: PIPERACILLIN/TAZO 3.375 GM in SODIUM CHLORIDE 0.9% 100 ML 25 ML IV (08:53)
[2020-10-30] MEDS: LOSARTAN 25 MG TABLET PO (09:06)
--- NOTE | 2020-10-30 13:20 | CM.DANOTE ---
Discharge Planning/Care Management DCP: assessment: case received, EMR reviewed and met pt and his Mercedez during Team Bedside Rounds. Dr. Soares stated that pt should be able to d/c home later today on oral antibiotics. Pt stated he was already feeling much better. Admission: night of 10/29 to care of hospitalist team. Payer: Medicare and [employer] Admission status: OBS: confirmed by UR RN PCP: Anju Beverly: listed. A dc order is in place. P: home today CM Discharge Assessment Start: 10/30/20 13:19 Freq: Status: Active Protocol: Document 10/30/20 13:20 ITV (Rec: 10/30/20 13:20 ITV [id number]) Discharge Planning Assessment Advance Directives? No History Provided By Patient,Medical Record Prior Living Arrangements Apartment/Condo Household Members spouse Independent with ADL's Yes Is patient alert and oriented? Yes Discharge Plan Home
[2020-10-30 13:29] LABS: Bacteria Urine None Seen
[2020-10-30 13:41] LABS: Appearance Urine UA CLEAR; Bilirubin Urine UA NEGATIVE (NEGATIVE); Color Urine UA YELLOW; Glucose Urine UA NEGATIVE (Negative); Ketones Urine UA NEGATIVE (NEGATIVE); Leukocyte Esterase Urine UA 1+ (NEGATIVE); Nitrite Urine UA NEGATIVE (Negative); Occult Blood Urine UA 3+ (Negative); Protein Urine UA NEGATIVE (Negative); Specific Gravity Urine UA 1.015 (1.000-1.035); Urobilinogen Urine UA 0.2 E.U./dL (0.2); pH Urine UA 5.5 (4.5-8.0)
[2020-10-30 13:46] LABS: Culture Indicated Urine Specimen Cultured; RBC Urine 30-100/HPF (0-5/HPF); WBC Urine 5-10/HPF (0-5/HPF)
--- NOTE | 2020-10-30 14:09 | PM.DS.1 ---
History of Present Illness History of Present Illness Date Patient Seen: 10/30/20 Time Patient Seen: 14:09 Chief complaint: Postate Biopsy, Chills, Light Headed, Suspects Inf Narrative: Per Cindy West, [facility]-: Patient is a 75-year-old male Star Aquino with a chief complaint of fatigue, fever and chills and some lightheadedness that presented last night. He states he had been in his normal state of health until the aftermath of a recent prostate biopsy on 10/27/[address] Laureano at [facility]. Patient states that he has had elevated PSA is required to yearly prostate biopsies to monitor for prostate cancer. He has not had this issue before. Patient states that he often has some mild bleeding in his urine in the 1st few days following the biopsy but then quickly resolves he states he has had blood in his urine the past 2 days but as of today he has had none and no blood in his stool, swelling or inflammation of his genitals or rectal area. He denies any runny nose or sore throat. He has no chest pain, shortness of breath or cough. He denies nausea, vomiting or diarrhea. He had taken ciprofloxacin as directed by his urologist in the near aftermath but presents tonight under the above-stated circumstances. Patient states he also is having shortness of breath with activity which she has been experiencing over the past year whenever he lifts something heavy he can walk approximately 30-35 minute it is or 1 mi on his treadmill without shortness of breath but any lifting activities cause of shortness of breath. 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 Patient's vitals upon admit temp 99.3?, BP 125/74, HR 116, RR 15, O2 saturation 97% on room air, PaO2 96, FiO2 22. Patient's labs upon admit WBC 12.3 with a left shift, neut# 10,600, sofa score of 1, Na 135, BUN 24, HC03 17, creatinine 1.9, glucose 169, EGFR 34.7, lactate 2.2, lipase WNL, procalcitonin 1.97, D-dimer 712 likely related to prostate biopsy but maybe you a result of infection. Respiratory panel negative, COVID negative, CXR:No evidence acute pulmonary process. Discharge Providers Provider Date of admission: 10/29/20 22:34 Discharge Date: 10/30/20 Primary care physician: Anju Beverly DO Discharge provider: Rene Soares DO Summary Hospital Course Discharge Diagnosis: 1. acute prostatitis 2. Essential hypertension, chronic 3. Peptic ulcer disease with a history of gastric ulcer, chronic, not present on admission 4. Obesity as evidenced by BMI of 37.1, acute on chronic, present on admission 5. Elevated PSA 6. CKD 3 Hospital Course: This is a 75-year-old male who presented with fever and chills after a prostate biopsy with outpatient Urology. He was started on empiric antibiotics with improvement in symptoms and no documented fever. He felt well the following day. Urinalysis was grossly positive on admission, and he was treated as an acute prostatitis given his recent outpatient procedure. His blood cultures have shown no growth to date and his urine culture was also negative. Given possible prostate infection he was discharged on 4 weeks of ciprofloxacin and recommended for outpatient follow-up. No other medication changes were made. Status at Discharge Cognitive/behavioral status at discharge: oriented Functional status at discharge: independent ambulation Overall status at discharge: patient is back to baseline Exam Vital Signs (past 8 hours): - 10/30/20 09:00 10/30/20 09:06 10/30/20 09:46 Temperature 98 F Pulse Rate 71 Respiratory Rate 17 Blood Pressure 129/73 120/74 Pulse Oximetry 98 98 10/30/20 10:22 10/30/20 13:00 Temperature 97.8 F Pulse Rate 70 Respiratory Rate 16 Blood Pressure 118/71 Pulse Oximetry 98 97 Oxygen Delivery Method Room Air Oxygen Flow Rate 0 Narrative Exam Narrative: General: Patient is a well-developed, well-nourished in no distress at this time. HEENT: Normocephalic, atraumatic, extraocular muscles intact, oral pharynx is clear and mucous membranes are moist. Neck is supple and symmetric, trachea is midline, no adenopathy, no thyroid enlargement, nontender, no masses palpated. Negative for JVD Chest: Normal AP diameter and contour without kyphoscoliosis, no nasal flaring, retractions, or tachypneic labored Lungs: Auscultation of all lung florian are clear without adventitious sounds, wheezes, rhonchi, or rales. Cardio: S1 & S2 with regular rate and rhythm without murmur, rubs, or gallops, no carotid bruit, no cardiac pulsations present. Abdomen: Soft nontender, negative for organomegaly, or masses. Bowel sounds are present in all 4 quadrants without guarding or rebound, no CVA tenderness. Genitals/Rectal: Upon visual inspection no erythema, inflammation pain or signs of infection. Non tender, no epididymal pain. Musculoskeletal: Muscle strength and tone are equal within normal limits, no deformity, crepitus, effusions, cyanosis, clubbing or edema present. Full range of motion intact radial and pedal pulses are normal. Skin: Warm dry and intact without rashes, ulcerations or petechiae. Neuro: Alert and orientated x3, strength is +5/5 in all extremities, sensation to touch intact, no gross deficits noted of cranial nerves. Psych: Patient has a well-kept appearance, appropriate affect, mental status attitude thought context and judgment are appropriate for age. Objective Labs Result Diagrams: 10/30/20 05:50 10/30/20 05:50 Labs: Laboratory Results - last 24 hr 10/29/20 10/29/20 10/29/20 18:22 18:22 18:22 WBC 12.3 H RBC 4.81 Hgb 14.4 Hct 42.8 MCV 89.0 MCH 29.9 MCHC 33.6 RDW 13.8 Plt Count 183 Neut % (Auto) 86.0 H Lymph % (Auto) 5.6 L [place] % (Auto) 7.6 Eos % (Auto) 0.5 L Baso % (Auto) 0.3 Neut # (Auto) 35592 H Lymph # (Auto) 700 L [place] # (Auto) 900 Eos # (Auto) 100 Baso # (Auto) 0 PT 11.9 INR 1.1 APTT 28 D-Dimer Sodium 135 L Potassium 4.0 Chloride 105 Carbon Dioxide 17 L BUN 24 H Creatinine 1.90 H Estimated GFR 34.7 L BUN/Creatinine Ratio 12.6 Glucose 169 H Hemoglobin A1c Lactate Calcium 9.0 Magnesium Total Bilirubin 0.9 AST 30 ALT 28 Alkaline Phosphatase 83 Total Protein 7.3 Albumin 4.2 Globulin 3.1 Albumin/Globulin Ratio 1.4 Lipase 178 Procalcitonin 1.97 H Urine Color Urine Appearance Urine pH Ur Specific [place] Urine Protein Urine Glucose (UA) Urine Ketones Urine Occult Blood Urine Nitrate Urine Bilirubin Urine Urobilinogen Ur Leukocyte Esterase Urine RBC Urine WBC Urine Bacteria Ur Culture Indicated? Chlamy pneumoniae PCR Adenovirus (PCR) B. pertussis DNA (PCR) B.parapertussis DNA PCR Coronavirus OC43 (PCR) Coronavirus HKU1 (PCR) Coronavirus 229E (PCR) SARS-CoV-2 (PCR) Coronavirus NL63 (PCR) Human Metapneumovir PCR Influenza Type A (PCR) Influenza Type B (PCR) M. pneumoniae (PCR) Parainfluenza 1 (PCR) Parainfluenza 2 (PCR) Parainfluenza 3 (PCR) Parainfluenza 4 (PCR) RSV (PCR) Entero/Rhino (PCR) 10/29/20 10/29/20 10/29/20 18:22 18:22 18:22 WBC RBC Hgb Hct MCV MCH MCHC RDW Plt Count Neut % (Auto) Lymph % (Auto) [place] % (Auto) Eos % (Auto) Baso % (Auto) Neut # (Auto) Lymph # (Auto) [place] # (Auto) Eos # (Auto) Baso # (Auto) PT INR APTT D-Dimer 712 H Sodium Potassium Chloride Carbon Dioxide BUN Creatinine Estimated GFR BUN/Creatinine Ratio Glucose Hemoglobin A1c Lactate 2.2 H Calcium Magnesium 1.5 L Total Bilirubin AST ALT Alkaline Phosphatase Total Protein Albumin Globulin Albumin/Globulin Ratio Lipase Procalcitonin Urine Color Urine Appearance Urine pH Ur Specific [place] Urine Protein Urine Glucose (UA) Urine Ketones Urine Occult Blood Urine Nitrate Urine Bilirubin Urine Urobilinogen Ur Leukocyte Esterase Urine RBC Urine WBC Urine Bacteria Ur Culture Indicated? Chlamy pneumoniae PCR Adenovirus (PCR) B. pertussis DNA (PCR) B.parapertussis DNA PCR Coronavirus OC43 (PCR) Coronavirus HKU1 (PCR) Coronavirus 229E (PCR) SARS-CoV-2 (PCR) Coronavirus NL63 (PCR) Human Metapneumovir PCR Influenza Type A (PCR) Influenza Type B (PCR) M. pneumoniae (PCR) Parainfluenza 1 (PCR) Parainfluenza 2 (PCR) Parainfluenza 3 (PCR) Parainfluenza 4 (PCR) RSV (PCR) Entero/Rhino (PCR) 10/29/20 10/29/20 10/30/20 21:00 23:02 05:50 WBC 9.2 RBC 4.12 L Hgb 12.3 L Hct 36.5 L MCV 88.7 MCH 30.0 MCHC 33.8 RDW 13.7 Plt Count 151 Neut % (Auto) 78.1 H Lymph % (Auto) 9.1 L [place] % (Auto) 11.0 Eos % (Auto) 1.5 L Baso % (Auto) 0.3 Neut # (Auto) 7200 H Lymph # (Auto) 800 L [place] # (Auto) 1000 H Eos # (Auto) 100 Baso # (Auto) 0 PT INR APTT D-Dimer Sodium Potassium Chloride Carbon Dioxide BUN Creatinine Estimated GFR BUN/Creatinine Ratio Glucose Hemoglobin A1c Lactate 2.2 H Calcium Magnesium Total Bilirubin AST ALT Alkaline Phosphatase Total Protein Albumin Globulin Albumin/Globulin Ratio Lipase Procalcitonin Urine Color Urine Appearance Urine pH Ur Specific [place] Urine Protein Urine Glucose (UA) Urine Ketones Urine Occult Blood Urine Nitrate Urine Bilirubin Urine Urobilinogen Ur Leukocyte Esterase Urine RBC Urine WBC Urine Bacteria Ur Culture Indicated? Chlamy pneumoniae PCR Not detected Adenovirus (PCR) Not detected B. pertussis DNA (PCR) Not detected B.parapertussis DNA PCR Not detected Coronavirus OC43 (PCR) Not detected Coronavirus HKU1 (PCR) Not detected Coronavirus 229E (PCR) Not detected SARS-CoV-2 (PCR) Not detected Coronavirus NL63 (PCR) Not detected Human Metapneumovir PCR Not detected Influenza Type A (PCR) Not detected Influenza Type B (PCR) Not detected M. pneumoniae (PCR) Not detected Parainfluenza 1 (PCR) Not detected Parainfluenza 2 (PCR) Not detected Parainfluenza 3 (PCR) Not detected Parainfluenza 4 (PCR) Not detected RSV (PCR) Not detected Entero/Rhino (PCR) Not detected 10/30/20 10/30/20 10/30/20 05:50 05:50 06:35 WBC RBC Hgb Hct MCV MCH MCHC RDW Plt Count Neut % (Auto) Lymph % (Auto) [place] % (Auto) Eos % (Auto) Baso % (Auto) Neut # (Auto) Lymph # (Auto) [place] # (Auto) Eos # (Auto) Baso # (Auto) PT INR APTT D-Dimer Sodium 137 Potassium 3.7 Chloride 111 H Carbon Dioxide 20 L BUN 20 Creatinine 1.58 H Estimated GFR 43.0 L BUN/Creatinine Ratio 12.7 Glucose 116 H Hemoglobin A1c 6.3 H Lactate Calcium 8.4 Magnesium Total Bilirubin 0.9 AST 23 ALT 22 Alkaline Phosphatase 59 Total Protein 6.1 L Albumin 3.2 L Globulin 2.9 Albumin/Globulin Ratio 1.1 Lipase Procalcitonin Urine Color Yellow Urine Appearance Clear Urine pH 5.5 Ur Specific [place] 1.015 Urine Protein Negative Urine Glucose (UA) Negative Urine Ketones Negative Urine Occult Blood 3+ H Urine Nitrate Negative Urine Bilirubin Negative Urine Urobilinogen 0.2 Ur Leukocyte Esterase 1+ H Urine RBC 30-100/hpf H Urine WBC 5-10/hpf H Urine Bacteria None seen Ur Culture Indicated? Specimen cultured Chlamy pneumoniae PCR Adenovirus (PCR) B. pertussis DNA (PCR) B.parapertussis DNA PCR Coronavirus OC43 (PCR) Coronavirus HKU1 (PCR) Coronavirus 229E (PCR) SARS-CoV-2 (PCR) Coronavirus NL63 (PCR) Human Metapneumovir PCR Influenza Type A (PCR) Influenza Type B (PCR) M. pneumoniae (PCR) Parainfluenza 1 (PCR) Parainfluenza 2 (PCR) Parainfluenza 3 (PCR) Parainfluenza 4 (PCR) RSV (PCR) Entero/Rhino (PCR) [facility] Medical History (Updated 10/30/20 @ 05:10 by MADELINE Aguayo) CKD stage 3 secondary to diabetes History of gastric ulcer History of rectal bleeding Hypertension, essential Obesity (BMI 35.0-39.9 without comorbidity) Peptic ulcer disease Psoriasis Sleep apnea Surgical History (Updated 10/30/20 @ 05:10 by MADELINE Aguayo) History of umbilical hernia repair Hx of blepharoplasty Family History (Updated 10/30/20 @ 05:11 by MADELINE Aguayo) Father Cirrhosis Mother Gallstones Social History household members: spouse Smoking Status: Unknown if ever smoked Discharge Plan Discharge Plan Patient Disposition: Home Provider Discharge Comment: You were admitted to the hospital with symptoms of an infection, started on treatment for prostatitis after your prostate biopsy. Please follow up with urology as scheduled. No other medication changes are necessary. Discharge orders & Medications Prescriptions: New ciprofloxacin HCl 500 mg tablet 500 mg PO BID 28 Days Qty: 56 RF: 0 Continued spironolactone 25 mg tablet 50 mg PO BEDTIME RF: 0 atorvastatin [Lipitor] 20 mg tablet 20 mg PO BEDTIME RF: 0 clobetasol 0.05 % ointment See Rx Instructions .ROUTE .COMPLEX PRN (Reason: Psoriasis) RF: 0 losartan 25 mg tablet 25 mg PO DAILY RF: 0 febuxostat 40 mg tablet 40 mg PO DAILY RF: 0 sucralfate 1 gram tablet 1 g PO AC RF: 0 tamsulosin 0.4 mg capsule 0.4 mg PO ONCE PM RF: 0 aspirin 81 mg Tablet 81 mg PO DAILY RF: 0 Vitamin D3 2,000 units PO DAILY RF: 0 Mycelex 1 % topical PRN PRN (Reason: Rash) RF: 0 omeprazole 20 mg Tablet,Delayed Release (Dr/Ec) 20 mg PO DAILY RF: 0 famotidine 20 mg Tablet 20 mg PO BID RF: 0 colchicine 0.6 mg Tablet 0.6 mg PO PRN PRN (Reason: Gout) RF: 0 ranitidine HCl 150 mg Tablet 150 mg PO PRN PRN (Reason: Acid Reflux) RF: 0 cetirizine [Zyrtec] 10 mg Tablet 10 mg PO DAILY PRN (Reason: allergies) RF: 0 Follow up/Referrals: Anju Beverly DO [Primary Care Provider] - Diet/Activity/Treatments Diet: Diet as Tolerated Activity: As tolerated, avoid heavy exercise while on antibiotic. Visit Report/Discharge Packet Instructions: Ciprofloxacin Discharge Data Primary Care Provider: Anju Beverly Attending Provider: Cindy West
--- NOTE | 2020-10-30 14:22 | PC.NURSE ---
Patient was given education on education on discharge instructions, follow up with PCP, stroke signs and symptoms, diet and activity as tolerated, and pharmacy provided education on new medication. IV and tele were removed and patient got dressed. Patient left with all belongs with spouse via wheel chair to private vehicle.
== END 2020-10-30 14:37 | disposition home or self-care (01) ==
LOC: ED 18:23 → AC 23:05
PROVIDERS: Internal Medicine; Admitting Provider Nurse Practitioner Family; Emergency Provider Emergency Medicine; PCP Family Medicine; Referring Provider Urology; Visit Provider Nurse Practitioner Family
DX: N41.0 Acute prostatitis (principal); G47.30 Sleep apnea, unspecified; E11.22 Type 2 diabetes mellitus with diabetic chronic kidney disease; I12.9 Hypertensive chronic kidney disease with stage 1 through stage 4 chronic kidney disease, or unspecified chronic kidney disease; N18.30 Chronic kidney disease, stage 3 unspecified; E66.9 Obesity, unspecified; Z68.37 Body mass index [BMI] 37.0-37.9, adult; K27.7 Chronic peptic ulcer, site unspecified, without hemorrhage or perforation; B96.89 Other specified bacterial agents as the cause of diseases classified elsewhere; R97.20 Elevated prostate specific antigen [PSA]; Z20.822 Contact with and (suspected) exposure to COVID-19
CPT/HCPCS: 36415; 71045; 80053; 81001; 83036; 83605; 83690; 83735; 84145; 85025; 85379; 85610; 85730; 87040; 87086; 87633; 93005; 94760; 96361; 96365; 96366; 96367; 99284; G0378; A9270; J0696; J2543

== ENCOUNTER → 2020-11-20 09:03 | Outpatient (CLI) | payer MEDICARE, OTHER, SELFPAY ==
[2020-10-30 00:02] VITALS: BMI 36.3
--- NOTE | 2020-11-20 | DI.CT.S_ITS ---
PROCEDURE: CT CHEST ABD PEL WO CON INDICATIONS: Malignant neoplasm of prostate TECHNIQUE: After the administration of oral contrast, 5 mm thick sections acquired from the lung apices to the symphysis pubis. 5 mm thick coronal and sagittal reformats acquired, with additional 7 mm coronal MIP reformats through the lungs. For radiation dose reduction, the following was used: automated exposure control, adjustment of mA and/or kV according to patient size. COMPARISON: [facility], CR, XR CHEST 1V, 10/29/2020, 19:21. [facility], CT, CT ABDOMEN PELVIS WO CON, 07/06/2018, 11:06. FINDINGS: Image quality: Quality of visceral imaging is limited by absence of intravenous contrast.. CHEST: Lungs and pleura: No acute pulmonary opacities. No pleural effusions or pneumothorax. Central and peripheral airways are patent are normal in caliber. Mediastinum: Heart size is normal. No pericardial effusion. No mediastinal adenopathy by CT size criteria. Thoracic aorta and central pulmonary arteries are normal in size. Esophagus is normal in caliber. No hiatal hernia. Chest wall: No axillary or supraclavicular adenopathy by size criteria. Thyroid gland is asymmetrically larger on the right than the left, to the degree that a significant thyroid mass or several nodules are present on the right. . The right thyroid lobe measures up to 3.9 x 2.1 cm and at the same axial level of the left thyroid lobe measures only 2.1 by 1.1 cm.13 ABDOMEN: Solid organs: Liver is normal in size, and contains several cysts that were previously present on prior CT scanning from July 2018. . Gallbladder is partially contracted . Pancreas is normal in contours. Spleen is normal in size. No adrenal nodules. Both kidneys are normal in size, without hydronephrosis or nephrolithiasis. Peritoneum and bowel: Small and large bowel loops are normal in caliber and wall thickness. No free fluid or air. Nodes and vessels: No retroperitoneal or mesenteric adenopathy by size criteria. Aorta and inferior vena cava are normal in size. Miscellaneous: No ventral hernias. PELVIS: Genitourinary: Bladder wall thickness is normal. Miscellaneous: No inguinal hernias or adenopathy. Normal appendix found, prostate gland does not appear enlarged or demonstrate mass lesion extending into adjacent structures. Bones: No suspicious bony lesions. No vertebral body compression fractures. IMPRESSION: Intravenous contrast was not utilized and therefore visceral visualization is somewhat limited. Several scattered cysts are again noted within the hepatic parenchyma superiorly, stable from the comparison CT in July of 2018. Throughout the skeletal structures no osteolytic or blastic bone lesion is found. No adenopathy is seen. The prostate is normal in size and free of apparent mass lesion extending into adjacent structures. The right thyroid lobe is asymmetrically enlarged and should be further assessed with thyroid ultrasound. Dictated by: Ronnie Matos M.D. on 11/20/2020 at 12:16 Approved by: Ronnie Matos M.D. on 11/20/2020 at 12:39
--- NOTE | 2020-11-20 | DI.NM.S_ITS ---
PROCEDURE: NM BONE SCAN WHOLE BODY RADIOPHARMACEUTICAL: 19.1 mCi Tc-99m MDP IV. INDICATIONS: Malignant neoplasm of prostate TECHNIQUE: Delayed whole-body scintigrams were obtained approximately 3-4 hours after intravenous injection of radiotracer. Anterior and posterior views were acquired from vertex to feet. COMPARISON: [facility], CT, CT CHEST ABD PEL WO CON, 11/20/2020, 10:46. FINDINGS: There is increased uptake in maxilla and mandible, most likely related to dental disease. Subtle increased uptake in the right anterior 7th rib is noted, most likely posttraumatic in nature. No lesions are identified in skull, sternum, clavicles, scapulae, bony pelvis, and visualized shafts of the long bones. There is low level increased uptake in cervical, thoracic and lumbar spine with distribution indistinguishable from degenerative disc and facet disease; early metastasis to spine could be obscured by degenerative changes. There are foci of increased periarticular activity involving shoulders, sternoclavicular joints, wrists, hips, knees and ankles, compatible with degenerative/arthritic changes. IMPRESSION: No scintigraphic findings to suggest osseous metastasis. Dictated by: Allen Diallo M.D. on 11/20/2020 at 15:44 Approved by: Allen Diallo M.D. on 11/20/2020 at 18:14
== END ==
PROVIDERS: PCP Family Medicine; Referring Provider Urology; Visit Provider Urology
DX: C61 Malignant neoplasm of prostate (principal); K76.89 Other specified diseases of liver; E04.9 Nontoxic goiter, unspecified
CPT/HCPCS: 71250; 74176; 78306; A9503

== ENCOUNTER 2020-12-20 17:41 | Emergency (ER) | payer MEDICARE, OTHER, SELFPAY ==
[2020-10-30 00:02] VITALS: BMI 36.3
[2020-12-20 17:52] VITALS: BP 167/88; PULSE 93; RESP 20; TEMP 37.2; O2SAT 98; BMI 35.9
--- NOTE | 2020-12-20 18:14 | DI.US.S_ITS ---
PROCEDURE: US ABDOMEN LIMITED INDICATIONS: RUQ PAIN TECHNIQUE: Real-time scanning was performed of the abdominal and retroperitoneal organs, with image documentation. COMPARISON: [facility], CT, CT CHEST ABD PEL WO CON, 11/20/2020, 10:46. FINDINGS: Liver: Visualized portion of liver shows normal echotexture. 3 simple cysts are noted in left lobe of liver with the largest 1 measures 3.8 x 2 point x 1.9 cm in size. Gallbladder: There is no gallstone. No gallbladder wall thickening or pericholecystic fluid. No sonographic Tatum sign. Biliary ducts: Intrahepatic bile ducts are non-dilated. Extrahepatic bile duct caliber measures 4.1 mm. Normal is 6-7 mm or less in diameter, or 10 mm or less post-cholecystectomy. IMPRESSION: 1. Normal appearing gallbladder. No biliary ductal dilatation. 2. Left hepatic lobe cysts as above, unchanged from previous CT study. Dictated by: Tucker Simpson M.D. on 12/20/2020 at 19:20 Approved by: Tucker Simpson M.D. on 12/20/2020 at 19:21
--- NOTE | 2020-12-20 18:15 | ED.ABDPAIN ---
HPI - Abdominal Pain General Chief Complaint: Abdominal Pain Stated Complaint: ABDOMINAL PAIN Time Seen by Provider: 12/20/20 17:59 Source: patient Mode of arrival: Family Vehicle Limitations: no limitations History of Present Illness HPI narrative: 75-year-old gentleman with a history of hypertension recent sepsis admission after a prostate biopsy and schedule for prostatectomy and January, hyperlipidemia, sleep apnea a and psoriasis presents with right upper quadrant pain. In early October he had an upper endoscopy with biopsy proven H pylori eye and 4 days ago started on amoxicillin, erythromycin and Prilosec. Currently on day for 14. He is noticing since yesterday he has been having increasing right upper quadrant pain constant and getting worse now rated at a 7/10. He describes no diarrhea nausea or vomiting or dizziness knee notes that he has had 3 normal brown soft bowel movements today. He reports no dyspnea, orthopnea, chest pain or palpitations. Related Data Home Medications Medication Instructions Recorded Confirmed Mycelex 1 % TOPICAL PRN PRN 10/30/20 10/30/20 Vitamin D3 2,000 units PO DAILY 10/30/20 10/30/20 aspirin 81 mg tablet 81 mg PO DAILY 10/30/20 10/30/20 atorvastatin 20 mg tablet (Lipitor) 20 mg PO BEDTIME 10/30/20 10/30/20 cetirizine 10 mg tablet (Zyrtec) 10 mg PO DAILY PRN 10/30/20 10/30/20 clobetasol 0.05 % topical ointment See Rx Instructions .ROUTE 10/30/20 10/30/20 .COMPLEX PRN colchicine 0.6 mg tablet 0.6 mg PO PRN PRN 10/30/20 10/30/20 famotidine 20 mg tablet 20 mg PO BID 10/30/20 10/30/20 febuxostat 40 mg tablet 40 mg PO DAILY 10/30/20 10/30/20 losartan 25 mg tablet 25 mg PO DAILY 10/30/20 10/30/20 omeprazole 20 mg tablet,delayed 20 mg PO DAILY 10/30/20 10/30/20 release ranitidine HCl 150 mg tablet 150 mg PO PRN PRN 10/30/20 10/30/20 spironolactone 50 mg PO BEDTIME 10/30/20 10/30/20 sucralfate 1 gram tablet 1 g PO AC 10/30/20 10/30/20 tamsulosin 0.4 mg capsule 0.4 mg PO ONCE PM 10/30/20 10/30/20 Previous Rx's Medication Instructions Recorded sucralfate 1 gram tablet (Carafate) 1 g PO QID #120 tab 12/21/20 Allergies Allergy/AdvReac Type Severity Reaction Status Date / Time felodipine Allergy Unknown Verified 10/30/20 07:37 lisinopril Allergy Unknown Verified 10/30/20 07:37 terazosin Allergy Unknown Verified 10/30/20 07:37 Review of Systems Review of Systems Narrative: Remainder of complete review of systems is otherwise unremarkable except for that included in the HPI. Patient History Medical History CKD stage 3 secondary to diabetes History of gastric ulcer History of rectal bleeding Hypertension, essential Obesity (BMI 35.0-39.9 without comorbidity) Peptic ulcer disease Psoriasis Sleep apnea Surgical History History of umbilical hernia repair Hx of blepharoplasty Family History Father Cirrhosis Mother Gallstones Social History household members: spouse Smoking Status: Never smoker Smoking Status: Unknown if ever smoked alcohol intake frequency: holidays/special occasions only Substance Use Type: does not use Exam Narrative Exam Narrative: General: Healthy appearing, in no acute distress. Able to give a complete and coherent history. Well-nourished well-developed HEENT: Moist mucous membranes, normal sclera with reactive pupils, Neck: No JVD, supple Respiratory: Lungs are clear to auscultation, no wheezing no rales no rhonchi. Full and symmetrical air movement Cardiac: Regular rate and rhythm no murmurs no bruits Abdomen: Soft, mild right upper quadrant tenderness without rebound or guarding, good bowel tones, no flank pain Skin: Warm and dry, no rashes Neurologic: Grossly neurologically intact with no obvious asymmetries or abnormalities Extremities: No trauma, well perfused Psych: Cooperative, appropriate insight and affect Initial Vital Signs Initial Vital Signs: Vital Signs Temperature 99.0 F 12/20/20 17:52 Pulse Rate 93 H 12/20/20 17:52 Respiratory Rate 20 12/20/20 17:52 Blood Pressure 167/88 H 12/20/20 17:52 Pulse Oximetry 98 12/20/20 17:52 Course Orders Ordered: Discontinued Medications Aspirin (Aspirin 81 Mg Chew Tab) 324 mg PO NOW ONE Stop: 12/20/20 19:47 Last Admin: 12/20/20 20:12 Dose: Not Given Documented by: DENI Al Hydrox/Mg Hydrox/Simethicone 20 ml/ Lidocaine HCl 15 ml 0 ml PO NOW ONE Stop: 12/20/20 19:46 Last Admin: 12/20/20 20:05 Dose: 35 ml Documented by: DENI Hydromorphone HCl (Hydromorphone 0.5 Mg Inj) 0.5 mg IV Q15MIN PRN PRN Reason: Pain, Last Admin: 12/20/20 18:31 Dose: 0.5 mg Documented by: DAR Sodium Chloride (Normal Saline 0.9%) 1,000 mls @ 150 mls/hr IV CONT DARIUSZ Last Infusion: 12/20/20 20:15 Dose: 0 mls/hr Documented by: Admin: 12/20/20 18:31 Dose: 150 mls/hr Documented by: DAR Vital Signs Vital signs: Vital Signs - 8 hr 12/20/20 17:52 12/20/20 19:05 Temperature 99.0 F Pulse Rate 93 H 79 Respiratory Rate 20 16 Blood Pressure 167/88 H 142/97 H Pulse Oximetry 98 99 MDM - Abdominal Pain Lab Data Result diagrams: 12/20/20 18:28 12/20/20 18:28 Labs: Lab Results 12/20/20 12/20/20 Range/Units 18:28 18:28 WBC 9.5 (4.5-11.0) X10^3/uL RBC 4.38 L (4.5-5.9) X10^6/uL Hgb 12.8 L (13.5-17.5) g/dL Hct 38.6 L (41-53) % MCV 88.0 (80-100) fL MCH 29.3 (26-34) PG MCHC 33.3 (30-36) % RDW 13.8 (11.6-14.8) % Plt Count 172 (150-400) X10^3/uL Neut % (Auto) 74.5 (50-75) % Lymph % (Auto) 14.1 L (25-40) % [place] % (Auto) 8.4 (3-14) % Eos % (Auto) 2.6 (2-4) % Baso % (Auto) 0.4 (0-2) % Neut # (Auto) 7100 H (5870-8807) /uL Lymph # (Auto) 1300 (9643-7922) /uL [place] # (Auto) 800 (0-900) /uL Eos # (Auto) 200 (0-450) /uL Baso # (Auto) 0 (0-100) /uL Sodium 137 (137-145) mmol/L Potassium 4.1 (3.4-5.1) mmol/L Chloride 109 H (98-107) mmol/L Carbon Dioxide 19 L (22-32) mmol/L BUN 21 H (9-20) mg/dL Creatinine 1.69 H (0.66-1.25) mg/dL Estimated GFR 39.8 L (>60) mL/min BUN/Creatinine Ratio 12.4 (6-22) Glucose 109 (80-110) mg/dL Calcium 9.1 (8.4-10.2) mg/dL Magnesium 1.7 (1.6-2.3) mg/dL Total Bilirubin 0.5 (0.2-1.3) mg/dL AST 37 (17-59) IU/L ALT 36 (<50) IU/L Alkaline Phosphatase 62 (38-126) U/L Troponin I < 0.012 (0.01-0.034) ng/mL Total Protein 6.8 (6.3-8.2) g/dL Albumin 3.9 (3.5-5.0) g/dL Globulin 2.9 (1.7-4.1) g/dL Albumin/Globulin Ratio 1.3 (1.0-2.8) Lipase 251 (23-300) U/L Imaging Data US - abdomen: Radiologist's Impression: FINDINGS: Liver: Visualized portion of liver shows normal echotexture. 3 simple cysts are noted in left lobe of liver with the largest 1 measures 3.8 x 2 point x 1.9 cm in size. Gallbladder: There is no gallstone. No gallbladder wall thickening or pericholecystic fluid. No sonographic Tatum sign. Biliary ducts: Intrahepatic bile ducts are non-dilated. Extrahepatic bile duct caliber measures 4.1 mm. Normal is 6-7 mm or less in diameter, or 10 mm or less post-cholecystectomy. IMPRESSION: 1. Normal appearing gallbladder. No biliary ductal dilatation. 2. Left hepatic lobe cysts as above, unchanged from previous CT study. Dictated by: Tucker Simpson M.D. on 12/20/2020 at 19:20 ECG Data Interpretation: Sinus rhythm at a rate of 75 Normal intervals, normal axis No acute ischemic changes MDM Narrative Medical decision making narrative: 75-year-old gentleman currently being treated for H pylori with erythromycin amoxicillin with 4 days of increasing abdominal pain. Workup is otherwise unremarkable with no evidence of gallbladder disease, acute GI bleeding, pancreatitis, acute coronary syndrome or bowel obstruction. At this point I suspect that the abdominal pain is likely an adverse reaction to his erythromycin. This is an antibiotic he has not taken in the past. His erythromycin, continue the amoxicillin. Suggest that he contact his planer tailer tomorrow to see what they would like to replace the erythromycin with. Reassurance is given and he is safe for home discharge. Discharge Plan Departure Patient Disposition: Home Clinical Impression: Adverse reaction to antibiotic Instructions: DI for Adverse Drug Reaction -- GI Intolerance Activity Restrictions/Additional Instructions: Thank you for coming in I did not find any evidence of infection, gallbladder disease, pancreatitis or heart issues. I suspect that the abdominal pain your experiencing is an adverse reaction to erythromycin. Please discontinue the erythromycin and call your GI doctor tomorrow to see what they would suggest for replacement. If the GI cocktail that were given in the emergency department seemed like it helped with the discomfort, you can try some Maalox to help with the stomach discomfort. If you have new or worsening symptoms, please feel free to return to the ER Prescriptions: No Action spironolactone 25 mg tablet 50 mg PO BEDTIME RF: 0 atorvastatin [Lipitor] 20 mg tablet 20 mg PO BEDTIME RF: 0 clobetasol 0.05 % ointment See Rx Instructions .ROUTE .COMPLEX PRN (Reason: Psoriasis) RF: 0 losartan 25 mg tablet 25 mg PO DAILY RF: 0 febuxostat 40 mg tablet 40 mg PO DAILY RF: 0 sucralfate 1 gram tablet 1 g PO AC RF: 0 tamsulosin 0.4 mg capsule 0.4 mg PO ONCE PM RF: 0 aspirin 81 mg Tablet 81 mg PO DAILY RF: 0 Vitamin D3 2,000 units PO DAILY RF: 0 Mycelex 1 % topical PRN PRN (Reason: Rash) RF: 0 omeprazole 20 mg Tablet,Delayed Release (Dr/Ec) 20 mg PO DAILY RF: 0 famotidine 20 mg Tablet 20 mg PO BID RF: 0 colchicine 0.6 mg Tablet 0.6 mg PO PRN PRN (Reason: Gout) RF: 0 ranitidine HCl 150 mg Tablet 150 mg PO PRN PRN (Reason: Acid Reflux) RF: 0 cetirizine [Zyrtec] 10 mg Tablet 10 mg PO DAILY PRN (Reason: allergies) RF: 0 sucralfate [Carafate] 1 gram tablet 1 g PO QID Qty: 120 RF: 0 Referrals: Anju Beverly DO [Primary Care Provider] -
[2020-12-20] MEDS: SODIUM CHLORIDE 0.9% 1,000 ML 150 ML IV (18:31)
[2020-12-20] MEDS: HYDROMORPHONE 0.5 MG INJ IV (18:31)
[2020-12-20 18:34] LABS: Add Manual Diff / Slide Review NO; Basophils Absolute Auto 0 /uL (0-100); Basophils Percent Auto 0.4 % (0-2); Eosinophils Absolute Auto 200 /uL (0-450); Eosinophils Percent Auto 2.6 % (2-4); Hematocrit 38.6 % (41-53); Hemoglobin 12.8 g/dL (13.5-17.5); Lymphocytes Absolute Auto 1300 /uL (1100-4500); Lymphocytes Percent Auto 14.1 % (25-40); Mean Corpuscular HGB Conc 33.3 % (30-36); Mean Corpuscular Hemoglobin 29.3 PG (26-34); Monocytes Absolute Auto 800 /uL (0-900); Monocytes Percent Auto 8.4 % (3-14); Neutrophils Absolute Auto 7100 /uL (1500-7000); Neutrophils Percent Auto 74.5 % (50-75); Platelet Count 172 X10^3/uL (150-400); Red Blood Cell Count 4.38 X10^6/uL (4.5-5.9); Red Cell Distribution Width 13.8 % (11.6-14.8); White Blood Cell Count 9.5 X10^3/uL (4.5-11.0)
[2020-12-20 18:42] LABS: Alanine Aminotransferase 36 IU/L (<50); Albumin 3.9 g/dL (3.5-5.0); Albumin Globulin Ratio 1.3 (1.0-2.8); Alkaline Phosphatase 62 U/L (38-126); Aspartate Aminotransferase 37 IU/L (17-59); BUN Creatinine Ratio 12.4 (6-22); Bilirubin Total 0.5 mg/dL (0.2-1.3); Blood Urea Nitrogen 21 mg/dL (9-20); Calcium 9.1 mg/dL (8.4-10.2); Carbon Dioxide 19 mmol/L (22-32); Chloride 109 mmol/L (98-107); Estimated Glomerular Filt Rate 39.8 mL/min (>60); Globulin 2.9 g/dL (1.7-4.1); Glucose 109 mg/dL (80-110); HEMOLYSIS < 15 (0-50); Lipase 251 U/L (23-300); Magnesium 1.7 mg/dL (1.6-2.3); Potassium 4.1 mmol/L (3.4-5.1); Sodium 137 mmol/L (137-145); Total Protein 6.8 g/dL (6.3-8.2)
[2020-12-20 18:53] LABS: Troponin I < 0.012 ng/mL (0.01-0.034)
[2020-12-20 19:05] VITALS: BP 142/97; PULSE 79; RESP 16; O2SAT 99
[2020-12-20] MEDS: MAG HYDROX/ALUMINUM/SIMETH SUS 20 ML, LIDOCAINE VISCOUS 2% 15 ML PO (20:05)
[2020-12-20 20:21] VITALS: BP 179/87; PULSE 74; RESP 14; O2SAT 98
== END 2020-12-20 20:23 | disposition home or self-care (01) ==
PROVIDERS: Emergency Provider Emergency Medicine; PCP Family Medicine
DX: R10.11 Right upper quadrant pain (principal); T36.3X5A Adverse effect of macrolides, initial encounter; A04.8 Other specified bacterial intestinal infections; I10 Essential (primary) hypertension
CPT/HCPCS: 36415; 76705; 80053; 83690; 83735; 84484; 85025; 93005; 93010; 96360; 96361; 99284; J1170

== ENCOUNTER 2020-12-21 02:48 | Emergency (ER) | payer MEDICARE, OTHER, SELFPAY ==
[2020-10-30 00:02] VITALS: BMI 36.3
[2020-12-21 03:00] VITALS: BP 159/80; PULSE 81; RESP 20; TEMP 36.3; O2SAT 98; BMI 35.9
--- NOTE | 2020-12-21 03:08 | ED.ABDPAIN ---
HPI - Abdominal Pain General Chief Complaint: Abdominal Pain Stated Complaint: pain in upper abdomen Time Seen by Provider: 12/21/20 03:08 Source: patient Mode of arrival: Ambulatory Limitations: no limitations History of Present Illness HPI narrative: 75-year-old gentleman seen earlier this evening with upper abdominal pain 4 days after starting erythromycin and amoxicillin for endoscopy diagnosed H pylori eye. Workup including ultrasound of the right upper quadrant, lab work was all reassuring with no evidence of bleeding, infection acute coronary syndrome pancreatitis or gallbladder disease. He initially had some success with a GI cocktail and was discharged home with instructions to hold his erythromycin and talked to his bag inspector in the morning. Apparently, Maalox is no longer made as a brand-name medicine and he was unable to find any [id number]. He comes back complaining of worsening abdominal pain. He has not tried taking any Tylenol. He has no new or otherwise changed symptoms. Related Data Home Medications Medication Instructions Recorded Confirmed Mycelex 1 % TOPICAL PRN PRN 10/30/20 10/30/20 Vitamin D3 2,000 units PO DAILY 10/30/20 10/30/20 aspirin 81 mg tablet 81 mg PO DAILY 10/30/20 10/30/20 atorvastatin 20 mg tablet (Lipitor) 20 mg PO BEDTIME 10/30/20 10/30/20 cetirizine 10 mg tablet (Zyrtec) 10 mg PO DAILY PRN 10/30/20 10/30/20 clobetasol 0.05 % topical ointment See Rx Instructions .ROUTE 10/30/20 10/30/20 .COMPLEX PRN colchicine 0.6 mg tablet 0.6 mg PO PRN PRN 10/30/20 10/30/20 famotidine 20 mg tablet 20 mg PO BID 10/30/20 10/30/20 febuxostat 40 mg tablet 40 mg PO DAILY 10/30/20 10/30/20 losartan 25 mg tablet 25 mg PO DAILY 10/30/20 10/30/20 omeprazole 20 mg tablet,delayed 20 mg PO DAILY 10/30/20 10/30/20 release ranitidine HCl 150 mg tablet 150 mg PO PRN PRN 10/30/20 10/30/20 spironolactone 50 mg PO BEDTIME 10/30/20 10/30/20 sucralfate 1 gram tablet 1 g PO AC 10/30/20 10/30/20 tamsulosin 0.4 mg capsule 0.4 mg PO ONCE PM 10/30/20 10/30/20 Previous Rx's Medication Instructions Recorded sucralfate 1 gram tablet (Carafate) 1 g PO QID #120 tab 12/21/20 Allergies Allergy/AdvReac Type Severity Reaction Status Date / Time felodipine Allergy Unknown Verified 10/30/20 07:37 lisinopril Allergy Unknown Verified 10/30/20 07:37 terazosin Allergy Unknown Verified 10/30/20 07:37 Review of Systems Review of Systems Narrative: Remainder of complete review of systems is otherwise unremarkable except for that included in the HPI. Patient History Medical History CKD stage 3 secondary to diabetes History of gastric ulcer History of rectal bleeding Hypertension, essential Obesity (BMI 35.0-39.9 without comorbidity) Peptic ulcer disease Psoriasis Sleep apnea Surgical History History of umbilical hernia repair Hx of blepharoplasty Family History Father Cirrhosis Mother Gallstones Social History household members: spouse Smoking Status: Never smoker Smoking Status: Never smoker alcohol intake frequency: holidays/special occasions only Substance Use Type: does not use Exam Narrative Exam Narrative: General: Alert appropriate, complaining of abdominal pain Respiratory: Able to speak in full sentences, no obvious respiratory distress Abdomen: No longer tender in the right upper quadrant but he does have moderate tenderness in the epigastrium without rebound or guarding. Skin: No obvious rashes, warm and dry Neurologic: Grossly intact no obvious asymmetries or abnormalities Psych: appropriate insight and affect, cooperative Initial Vital Signs Initial Vital Signs: Vital Signs Temperature 97.4 F L 12/21/20 03:00 Pulse Rate 81 12/21/20 03:00 Respiratory Rate 20 12/21/20 03:00 Blood Pressure 159/80 H 12/21/20 03:00 Pulse Oximetry 98 12/21/20 03:00 Course Orders Ordered: ED Orders 12/21/20 EKG-12 Lead Stat Discontinued Medications Oxycodone/Acetaminophen (Oxycodone/Acetaminophen 5/325 Tablet) 1 tab PO NOW ONE Stop: 12/21/20 03:15 Last Admin: 12/21/20 03:24 Dose: 1 tab Documented by: CAITLIN Oxycodone/Acetaminophen (Oxycodone/Apap 5/325 Prepack) 1 bottle MISC SEEINSTR ONE Stop: 12/21/20 03:28 Sucralfate (Sucralfate 1 Gm Tablet) 1 gm PO Q6HR ONE Stop: 12/21/20 03:22 Last Admin: 12/21/20 03:47 Dose: 1 gm Documented by: CAITLIN Vital Signs Vital signs: Vital Signs - 8 hr 12/21/20 03:00 Temperature 97.4 F L Pulse Rate 81 Respiratory Rate 20 Blood Pressure 159/80 H Pulse Oximetry 98 MDM - Abdominal Pain Medical Records Medical records narrative: 75-year-old gentleman with continued epigastric pain. Additional workup is not done at this time is it was completed just a couple of hours ago and was unrevealing. EKG does not suggest any changes. He is given a dose of Percocet to see if this helps to alleviate pain. He had initially said that the GI cocktail had helped prior to leaving the emergency department however it was not helpful for long. Will have him try some Carafate and see if this might be helpful in addition to actual pain control for his epigastric pain presumably as an adverse effect of his erythromycin to treat his H pylori symptoms. Discharge Plan Departure Patient Disposition: Home Clinical Impression: Acute epigastric pain, H. pylori infection Instructions: DI for Helicobacter Pylori Infection Activity Restrictions/Additional Instructions: I am so sorry that you are hurting enough that you needed to return to the emergency department In the emergency department this time you are given a dose of Percocet which is Tylenol and oxycodone (a narcotic) to specifically help with the stomach pain that is presumably due to the erythromycin. I did not realize that aluminum hydroxide/magnesium hydroxide/simethicone is no longer sold under the brand name of Maalox. It is still sold as Mylanta and likely is also available as a generic. This still may be helpful. In the meantime I am going to give you a prescription for a medicine called Carafate. This medicine is meant to coat the inside of your stomach the same way to help it heal. It is 1 pill 4 times a day. This is often a medicine that we do use to help treat H. pylori in combination with antibiotics and the stomach acid floor covering printer assistant medications. You can use 2 Tylenol or 1 Percocet every 6 hours as needed for mild abdominal pain. Please cotton picker the prescription for the Carafate/sulcrafate and continue this, 1 gm pill, 4 times a day. Discontinue the erythromycin Hold the amoxicillin until you talk with your bag inspector Please continue the omeprazole Please contact your bag inspector later today If you are having any vomiting or notice black stools you do need to return to the emergency department Prescriptions: New sucralfate [Carafate] 1 gram tablet 1 g PO QID Qty: 120 RF: 0 No Action spironolactone 25 mg tablet 50 mg PO BEDTIME RF: 0 atorvastatin [Lipitor] 20 mg tablet 20 mg PO BEDTIME RF: 0 clobetasol 0.05 % ointment See Rx Instructions .ROUTE .COMPLEX PRN (Reason: Psoriasis) RF: 0 losartan 25 mg tablet 25 mg PO DAILY RF: 0 febuxostat 40 mg tablet 40 mg PO DAILY RF: 0 sucralfate 1 gram tablet 1 g PO AC RF: 0 tamsulosin 0.4 mg capsule 0.4 mg PO ONCE PM RF: 0 aspirin 81 mg Tablet 81 mg PO DAILY RF: 0 Vitamin D3 2,000 units PO DAILY RF: 0 Mycelex 1 % topical PRN PRN (Reason: Rash) RF: 0 omeprazole 20 mg Tablet,Delayed Release (Dr/Ec) 20 mg PO DAILY RF: 0 famotidine 20 mg Tablet 20 mg PO BID RF: 0 colchicine 0.6 mg Tablet 0.6 mg PO PRN PRN (Reason: Gout) RF: 0 ranitidine HCl 150 mg Tablet 150 mg PO PRN PRN (Reason: Acid Reflux) RF: 0 cetirizine [Zyrtec] 10 mg Tablet 10 mg PO DAILY PRN (Reason: allergies) RF: 0 Referrals: Anju Beverly DO [Primary Care Provider] -
[2020-12-21] MEDS: OXYCODONE/ACETAMINOPHEN 5/325 TABLET 1 TAB PO (03:24)
[2020-12-21] MEDS: SUCRALFATE 1 GM TABLET PO (03:47)
[2020-12-21] MEDS: OXYCODONE/APAP 5/325 PREPACK 1 BOTTLE MISC (04:30)
[2020-12-21 04:38] VITALS: BP 140/67; PULSE 70; RESP 20; O2SAT 97
== END 2020-12-21 04:43 | disposition home or self-care (01) ==
PROVIDERS: Emergency Provider Emergency Medicine; PCP Family Medicine
DX: R10.13 Epigastric pain (principal); A04.8 Other specified bacterial intestinal infections
CPT/HCPCS: 93005; 93010; 99283

== ENCOUNTER → 2021-10-29 12:01 | Outpatient (CLI) | payer MEDICARE, OTHER, SELFPAY ==
[2020-10-30 00:02] VITALS: BMI 36.3
--- NOTE | 2021-10-29 | DI.RAD.S_ITS ---
PROCEDURE: XR CHEST 2V INDICATIONS: dyspnea on exertion TECHNIQUE: 2 views of the chest were acquired. COMPARISON: [facility], CR, XR CHEST 1V, 10/29/2020, 19:21. FINDINGS: Surgical changes and devices: None. Lungs and pleura: Lungs are clear. No pleural effusions or pneumothorax. Mediastinum: Mediastinal contours are normal. Heart size is normal. Bones and chest wall: No suspicious bony abnormalities. Soft tissues appear unremarkable. IMPRESSION: No acute cardiopulmonary findings. Dictated by: Ruth Walker M.D. on 10/29/2021 at 13:52 Approved by: Ruth Walker M.D. on 10/29/2021 at 13:52
== END ==
PROVIDERS: PCP Nurse Practitioner Family; Referring Provider Internal Medicine Cardiovascular Disease; Visit Provider Internal Medicine Cardiovascular Disease
DX: R06.00 Dyspnea, unspecified (principal)
CPT/HCPCS: 71046

== ENCOUNTER → 2021-11-08 13:33 | Outpatient (CLI) | payer MEDICARE, OTHER, SELFPAY ==
[2020-10-30 00:02] VITALS: BMI 36.3
--- NOTE | 2021-11-08 13:35 | DI.ECHO.S_ITS ---
[facility] +---------+ : : [address] : : : : [id number] : : : : Phone: [phone] Echocardiogram Report + + :Name: ORLANDO TAYLOR Study Date: 11/08/2021 Height: 64 in : :[facility] ReadingLocation: Weight: 218 lb : : Gender: Male BSA: 2.0 m2 : :: 1945 Age: 76 yrs BP: 134/87 mmHg: :Reason For Study: Dyspnea : :Ordering Physician: YAMIL, : :ANGELICA Performed By: Dwight Jacinto : :Referring: ANGELICA NOLASCO : + + Interpretation Summary 1) Normal left ventricular thickness, size, wall motion, and systolic function (EF 55-60%). 2) Normal right ventricular size and function. 3) No significant valvular abnormalities. 4) There is a trivial to small circumferential pericardial effusion noted. 5) No prior echo available for comparison. Procedure: A two-dimensional transthoracic echocardiogram with color flow and Doppler was performed. The study quality was technically good. There is no prior echocardiogram noted for this patient. Left Ventricle: The left ventricle is normal in size and wall thickness. Left ventricular systolic function is normal. The ejection fraction is estimated to be 55-60%. There are no focal wall motion abnormalities. Diastolic parameters suggest a relaxation abnormality of the left ventricle, consistent with probable normal filling pressures. Right Ventricle: The right ventricle is normal in size and function. Atria: Both atria are normal in size. The interatrial septum grossly appears intact with no obvious evidence for an atrial septal defect. Mitral Valve: The mitral valve is normal in structure and function. There is trace mitral regurgitation. Aortic Valve: There is mild aortic valve sclerosis. There is no aortic valve stenosis. No aortic regurgitation is present. Tricuspid Valve: The tricuspid valve is normal in structure and function. There is a trace or physiologic amount of tricuspid regurgitation. Pulmonary artery pressures cannot be estimated because of the lack of a measurable TR jet velocity. Pulmonic Valve: The pulmonic valve is not well visualized. There is a trace or physiologic amount of pulmonic regurgitation. Great Vessels: The aortic root is normal size. The dimensions of the ascending aorta are normal. The IVC is of normal diameter and collapses greater than 50% with a sniff. This suggests a low right atrial pressure of 3 mm Hg. Pericardium/ Pleura There is an anterior echo-free space consistent with a fat pad. There is a trivial to small pericardial effusion noted. There are no echocardiographic indications of cardiac tamponade. There is no pleural effusion. MMode/2D Measurements & Calculations LVIDd: 4.8 cm LVOT diam: 2.2 cm LVIDs: 3.2 cm Ao root diam: 3.4 cm FS: 33.3 % asc Aorta Diam: 3.3 cm IVSd: 1.0 cm LVPWd: 1.1 cm LV ojeda. diameter/BSA (cm/m^2): 2.4 LV sys. diameter/BSA (cm/m^2): 1.6 LA dimension: 3.2 cm RA long axis: 4.5 cm LA A2 area: 17.6 cm2 LA A4 area: 11.8 cm2 LA length (vol): 5.1 cm LA vol: 34.8 ml LA vol index: 17.2 ml/m2 TAPSE_phl: 1.9 cm Doppler Measurements & Calculations Ao V2 max: 123.0 cm/sec LVOT Max Moi: 93.3 cm/sec Ao V2 mean: 88.9 cm/sec LV V1 max P.5 mmHg Ao max P.0 mmHg LV V1 VTI: 20.4 cm Ao mean P.0 mmHg DAV(I,D): 3.1 cm2 Ao V2 VTI: 25.4 cm DAV(V,D): 2.9 cm2 sev ratio: 0.80 DAV indexed to BSA (cm^2/m^2): 1.5 MV E max moi: 79.3 cm/sec SV(LVOT): 77.5 ml MV A max moi: 98.5 cm/sec MV E/A: 0.81 Med Peak E' Moi: 5.0 cm/sec E/E' med: 15.8 Lat Peak E' Moi: 8.0 cm/sec E/E' lat: 9.9 E/e' average: 12.8 MV dec time: 0.21 sec AV VR_phl: 0.76 MV P1/2t-pr_phl: 61.0 msec DAV(VTStanley)/BSA_phl: 1.5 Reading Physician:03:55 PM
== END ==
PROVIDERS: PCP Nurse Practitioner Family; Referring Provider Internal Medicine Cardiovascular Disease; Visit Provider Internal Medicine Cardiovascular Disease
DX: R06.00 Dyspnea, unspecified (principal); I35.8 Other nonrheumatic aortic valve disorders
CPT/HCPCS: 93306

== ENCOUNTER 2022-01-06 10:40 | Emergency (ER) | payer MEDICARE, OTHER, SELFPAY ==
[2020-10-30 00:02] VITALS: BMI 36.3
[2022-01-06] VITALS (20 sets, daily range): BP systolic 133–181; BP diastolic 63–85; PULSE 64–90; RESP 11–24; TEMP 36.4–36.9; O2SAT 95–98; BMI 36.4
--- NOTE | 2022-01-06 10:49 | DI.RAD.S_ITS ---
PROCEDURE: XR CHEST 1V INDICATIONS: shortness of breath/DIZZY TECHNIQUE: One view of the chest was acquired. COMPARISON: [facility], CR, XR CHEST 2V, 10/29/2021, 11:55. FINDINGS: Surgical changes and devices: None. Lungs and pleura: Lungs are clear. No pleural effusions or pneumothorax. Mediastinum: Mediastinal contours appear normal. Heart size is normal. Bones and chest wall: No suspicious bony lesions. Overlying soft tissues appear unremarkable. IMPRESSION: No acute cardiopulmonary disease process. Dictated by: Ekaterina Gibson MD, PhD on 01/06/2022 at 12:24 Approved by: Ekaterina Gibson MD, PhD on 01/06/2022 at 12:24
[2022-01-06 12:03] LABS: Add Manual Diff / Slide Review NO; Basophils Absolute Auto 0 /uL (0-100); Basophils Percent Auto 0.4 % (0-2); Eosinophils Absolute Auto 100 /uL (0-450); Eosinophils Percent Auto 1.2 % (2-4); Hematocrit 39.4 % (41-53); Hemoglobin 13.2 g/dL (13.5-17.5); Lymphocytes Absolute Auto 500 /uL (1100-4500); Lymphocytes Percent Auto 8.2 % (25-40); Mean Corpuscular HGB Conc 33.6 % (30-36); Mean Corpuscular Hemoglobin 29.6 PG (26-34); Mean Corpuscular Volume 88.1 fL (80-100); Monocytes Absolute Auto 600 /uL (0-900); Monocytes Percent Auto 9.5 % (3-14); Neutrophils Absolute Auto 5300 /uL (1500-7000); Neutrophils Percent Auto 80.7 % (50-75); Platelet Count 188 X10^3/uL (150-400); Prothrombin Time 11.3 SECONDS (10.1-12.7); Red Blood Cell Count 4.47 X10^6/uL (4.5-5.9); Red Cell Distribution Width 14.4 % (11.6-14.8); White Blood Cell Count 6.6 X10^3/uL (4.5-11.0)
[2022-01-06 12:08] LABS: Creatine Kinase 107 U/L (55-170); Lactate (Lactic Acid) 3.1 mmol/L (0.7-2.1)
[2022-01-06 12:10] LABS: Alanine Aminotransferase 40 IU/L (<50); Albumin 4.4 g/dL (3.5-5.0); Albumin Globulin Ratio 1.4 (1.0-2.8); Alkaline Phosphatase 89 U/L (38-126); Aspartate Aminotransferase 37 IU/L (17-59); BUN Creatinine Ratio 17.5 (6-22); Bilirubin Total 0.7 mg/dL (0.2-1.3); Blood Urea Nitrogen 29 mg/dL (9-20); Calcium 9.3 mg/dL (8.4-10.2); Carbon Dioxide 23 mmol/L (22-32); Chloride 105 mmol/L (98-107); Estimated Glomerular Filt Rate 42 mL/min (>60); Globulin 3.2 g/dL (1.7-4.1); Glucose 124 mg/dL (80-110); HEMOLYSIS < 15 (0-50); Sodium 139 mmol/L (137-145); Total Protein 7.6 g/dL (6.3-8.2)
[2022-01-06 12:19] LABS: NT-proBNP (BNP-Adult 18+) 22 pg/mL (<450)
[2022-01-06 12:22] LABS: Troponin I < 0.012 ng/mL (0.01-0.034)
[2022-01-06 12:24] LABS: CKMB % Relative Index 0.3 % (1.5-5.0); Creatine Kinase MB 0.31 ng/mL (<2.37)
[2022-01-06] MEDS: SODIUM CHLORIDE 0.9% 1,000 ML 1000 ML IV (13:37)
[2022-01-06 13:45] LABS: D Dimer 276 ng/mL (<230)
--- NOTE | 2022-01-06 13:45 | ED.DIZZY ---
HPI - Dizziness <RAJAT Grullon - Last Filed: 01/06/22 19:03> General Chief Complaint: Dizziness Stated Complaint: Dizzy, Fast heart rate, feeling funny Time Seen by Provider: 01/06/22 13:25 Source: patient Mode of arrival: Ambulatory History of Present Illness HPI Narrative: This is a 76-year-old male with history of CKD stage 3, hypertension, prostate cancer and is currently undergoing radiation, hyperlipidemia, sleep apnea, psoriasis, who presents to the emergency department complaining of increased fatigue, dizziness which started this morning and palpitations. He denies any shortness of breath, fever, nausea, vomiting, chest pressure, or new weakness. He states that recently due to his CKD his medications were changed and he is no longer on spironolactone and he is now taking 25 mg of metoprolol daily. Patient states that he since has had swelling in his bilateral lower extremities, reports increased fatigue today but his medications for his prostate cancer also make him feel fatigued. Denies any productive cough, sore throat, dysuria, urinary retention, endorses a minor amount of dribbling with voiding, denies any rectal pain. Denies any blood in his stool. Patient is not on any anticoagulants, he is seen by Dr. Nolasco for his hypertension, and he recently discuss this medication change with him. Related Data Home Medications Medication Instructions Recorded Confirmed Mycelex 1 % topical PRN PRN Rash 10/30/20 10/30/20 Vitamin D3 2,000 units PO DAILY 10/30/20 10/30/20 aspirin 81 mg tablet 81 mg PO DAILY 10/30/20 10/30/20 atorvastatin 20 mg tablet (Lipitor) 20 mg PO BEDTIME 10/30/20 10/30/20 cetirizine 10 mg tablet (Zyrtec) 10 mg PO DAILY PRN allergies 10/30/20 10/30/20 clobetasol 0.05 % topical ointment See Rx Instructions .Route 10/30/20 10/30/20 .COMPLEX PRN Psoriasis colchicine 0.6 mg tablet 0.6 mg PO PRN PRN Gout 10/30/20 10/30/20 famotidine 20 mg tablet 20 mg PO BID 10/30/20 10/30/20 febuxostat 40 mg tablet 40 mg PO DAILY 10/30/20 10/30/20 losartan 25 mg tablet 25 mg PO DAILY 10/30/20 10/30/20 omeprazole 20 mg tablet,delayed 20 mg PO DAILY 10/30/20 10/30/20 release ranitidine HCl 150 mg tablet 150 mg PO PRN PRN Acid Reflux 10/30/20 10/30/20 spironolactone 50 mg PO BEDTIME 10/30/20 10/30/20 sucralfate 1 gram tablet 1 g PO AC 10/30/20 10/30/20 tamsulosin 0.4 mg capsule 0.4 mg PO ONCE PM 10/30/20 10/30/20 Previous Rx's Medication Instructions Recorded sucralfate 1 gram tablet (Carafate) 1 g PO QID #120 tabs 12/21/20 Allergies Allergy/AdvReac Type Severity Reaction Status Date / Time felodipine Allergy Unknown Verified 01/06/22 10:47 lisinopril Allergy Unknown Verified 01/06/22 10:47 terazosin Allergy Unknown Verified 01/06/22 10:47 Review of Systems <RAJAT Grullon - Last Filed: 01/06/22 19:03> Review of Systems Narrative: General: denies fever, endorses chills just starting now, recent fatigue denies any pain anywhere, Head/Neck: denies headache, neck pain, dizziness, Eyes: denies visual changes, eye pain Cardio: denies chest pain, palpitations, edema currently, endorses palpitations earlier today Respiratory: denies dyspnea, cough, orthopnea GI: denies abdominal pain, nausea, vomiting, or diarrhea : denies dysuria, hematuria, urinary retention, frequency or incontinence MSK: denies joint pain, muscle weakness Skin: denies rash, itching, skin lesions or other Neuro: denies numbness, tingling Patient History <RAJAT Grullon - Last Filed: 01/06/22 19:03> Medical History CKD stage 3 secondary to diabetes History of gastric ulcer History of rectal bleeding Hypertension, essential Obesity (BMI 35.0-39.9 without comorbidity) Peptic ulcer disease Psoriasis Sleep apnea Surgical History History of umbilical hernia repair Hx of blepharoplasty Family History Father Cirrhosis Mother Gallstones Social History household members: spouse Smoking Status: Never smoker Smoking Status: Never smoker alcohol intake frequency: holidays/special occasions only Substance Use Type: does not use Exam <RAJAT Grullon - Last Filed: 01/06/22 19:03> Narrative Exam Narrative: Independently reviewed vitals signs and nursing notes. General: cooperative, comfortable, patient is having chills, well groomed Head: atraumatic, symmetrical facial expressions Neck: supple Eyes: equal round and reactive, EOMI, conjunctiva normal Nose: nares patent, no rhinorrhea Mouth/Throat: moist mucus membranes Cardiovascular: regular rate and rhythm, mild dependent lower extremity edema, warm extremities, Respiratory: normal effort, able to speak in complete sentences, no audible wheezing, stridor, or rales. No retractions or tachypnea. GI: abdomen soft, nontender to palpation, nondistended, no masses, no exquisite tenderness with exam, without guarding or rebound. MSK: moves all extremities, neurovascularly intact, no weakness, normal tone Skin: brisk capillary refill, no rash, no erythema Neuro: normal speech and cognition, A&O x3 Psych: mental status is grossly normal, congruent mood, normal affect, pleasant and cooperative Initial Vital Signs Initial Vital Signs: Vital Signs Temperature 98.4 F 01/06/22 10:47 Pulse Rate 90 01/06/22 10:47 Respiratory Rate 17 01/06/22 10:47 Blood Pressure 142/85 H 01/06/22 10:47 Pulse Oximetry 97 01/06/22 10:47 Oxygen Delivery Method 01/06/22 10:47 <Joyce Hunter DO - Last Filed: 01/14/22 07:53> Initial Vital Signs Initial Vital Signs: Vital Signs Temperature 98.4 F 01/06/22 10:47 Pulse Rate 90 01/06/22 10:47 Respiratory Rate 17 01/06/22 10:47 Blood Pressure 142/85 H 01/06/22 10:47 Pulse Oximetry 97 01/06/22 10:47 Oxygen Delivery Method 01/06/22 10:47 Scores <RAJAT Grullon - Last Filed: 01/06/22 19:03> HEART Score Heart Score EKG: Normal Heart Score Age: > or = 65 years old Heart Score risk factors: 1-2 risk factors Heart Score troponin: < or = to normal limit Course <RAJAT Grullon - Last Filed: 01/06/22 19:03> Orders Ordered: Discontinued Medications Sodium Chloride (Normal Saline 0.9%) 1,000 mls @ 1,000 mls/hr IV BOLUS ONE Stop: 01/06/22 14:32 Last Infusion: 01/06/22 14:40 Dose: 0 mls/hr Documented By: Admin: 01/06/22 13:37 Dose: 1,000 mls/hr Documented By: LAQUITA Vital Signs Vital signs: Vital Signs - 8 hr 01/06/22 11:05 01/06/22 11:30 01/06/22 11:30 Temperature Pulse Rate 81 69 Respiratory Rate 23 14 Blood Pressure 144/74 H Pulse Oximetry 98 97 01/06/22 11:32 01/06/22 11:32 01/06/22 12:00 Temperature Pulse Rate 73 Respiratory Rate 15 Blood Pressure 140/76 138/72 Pulse Oximetry 97 01/06/22 12:00 01/06/22 12:30 01/06/22 12:30 Temperature Pulse Rate 70 67 Respiratory Rate 11 L 12 Blood Pressure 143/78 H Pulse Oximetry 95 96 01/06/22 13:00 01/06/22 13:00 01/06/22 15:21 Temperature 97.5 F L Pulse Rate 64 Respiratory Rate 16 Blood Pressure 148/80 H Pulse Oximetry 97 01/06/22 13:30 01/06/22 13:30 01/06/22 14:00 Temperature Pulse Rate 64 Respiratory Rate Blood Pressure 155/79 H 166/73 H Pulse Oximetry 97 01/06/22 14:00 01/06/22 14:30 01/06/22 15:00 Temperature Pulse Rate 66 67 69 Respiratory Rate 14 21 18 Blood Pressure Pulse Oximetry 01/06/22 15:27 01/06/22 15:27 01/06/22 15:30 Temperature Pulse Rate 71 68 Respiratory Rate 13 17 Blood Pressure 133/63 Pulse Oximetry 98 98 01/06/22 15:31 01/06/22 15:31 01/06/22 16:00 Temperature Pulse Rate 67 73 Respiratory Rate 18 21 Blood Pressure 151/70 H Pulse Oximetry 98 96 01/06/22 16:01 01/06/22 16:01 01/06/22 16:30 Temperature Pulse Rate 68 72 Respiratory Rate 23 24 Blood Pressure 163/69 H Pulse Oximetry 98 98 01/06/22 16:31 01/06/22 16:31 01/06/22 16:55 Temperature Pulse Rate 68 Respiratory Rate 22 Blood Pressure 181/85 H 163/74 H Pulse Oximetry 97 01/06/22 16:55 Temperature Pulse Rate 65 Respiratory Rate 14 Blood Pressure Pulse Oximetry 97 <Joyce Hunetr, - Last Filed: 01/14/22 07:53> Orders Ordered: Discontinued Medications Sodium Chloride (Normal Saline 0.9%) 1,000 mls @ 1,000 mls/hr IV BOLUS ONE Stop: 01/06/22 14:32 Last Infusion: 01/06/22 14:40 Dose: 0 mls/hr Documented By: Admin: 01/06/22 13:37 Dose: 1,000 mls/hr Documented By: LAQUITA Vital Signs Vital signs: Vital Signs - 8 hr 01/06/22 11:05 01/06/22 11:30 01/06/22 11:30 Temperature Pulse Rate 81 69 Respiratory Rate 23 14 Blood Pressure 144/74 H Pulse Oximetry 98 97 01/06/22 11:32 01/06/22 11:32 01/06/22 12:00 Temperature Pulse Rate 73 Respiratory Rate 15 Blood Pressure 140/76 138/72 Pulse Oximetry 97 01/06/22 12:00 01/06/22 12:30 01/06/22 12:30 Temperature Pulse Rate 70 67 Respiratory Rate 11 L 12 Blood Pressure 143/78 H Pulse Oximetry 95 96 01/06/22 13:00 01/06/22 13:00 01/06/22 15:21 Temperature 97.5 F L Pulse Rate 64 Respiratory Rate 16 Blood Pressure 148/80 H Pulse Oximetry 97 01/06/22 13:30 01/06/22 13:30 01/06/22 14:00 Temperature Pulse Rate 64 Respiratory Rate Blood Pressure 155/79 H 166/73 H Pulse Oximetry 97 01/06/22 14:00 01/06/22 14:30 01/06/22 15:00 Temperature Pulse Rate 66 67 69 Respiratory Rate 14 21 18 Blood Pressure Pulse Oximetry 01/06/22 15:27 01/06/22 15:27 01/06/22 15:30 Temperature Pulse Rate 71 68 Respiratory Rate 13 17 Blood Pressure 133/63 Pulse Oximetry 98 98 01/06/22 15:31 01/06/22 15:31 01/06/22 16:00 Temperature Pulse Rate 67 73 Respiratory Rate 18 21 Blood Pressure 151/70 H Pulse Oximetry 98 96 01/06/22 16:01 01/06/22 16:01 01/06/22 16:30 Temperature Pulse Rate 68 72 Respiratory Rate 23 24 Blood Pressure 163/69 H Pulse Oximetry 98 98 01/06/22 16:31 01/06/22 16:31 01/06/22 16:55 Temperature Pulse Rate 68 Respiratory Rate 22 Blood Pressure 181/85 H 163/74 H Pulse Oximetry 97 01/06/22 16:55 Temperature Pulse Rate 65 Respiratory Rate 14 Blood Pressure Pulse Oximetry 97 MDM - Dizziness <RAJAT Grullon - Last Filed: 01/06/22 19:03> Lab Data Result diagrams: 01/06/22 11:06 01/06/22 11:06 Labs: Lab Results 01/06/22 01/06/22 01/06/22 Range/Units 11:06 11:06 11:06 WBC Cancelled RBC Cancelled Hgb Cancelled Hct Cancelled MCV Cancelled MCH Cancelled MCHC Cancelled RDW Cancelled Plt Count Cancelled Neut % (Auto) Cancelled Lymph % (Auto) Cancelled Williamson % (Auto) Cancelled Eos % (Auto) Cancelled Baso % (Auto) Cancelled Neut # (Auto) Cancelled Lymph # (Auto) Cancelled Williamson # (Auto) Cancelled Eos # (Auto) Cancelled Baso # (Auto) Cancelled PT INR D-Dimer (<230) ng/mL Sodium Cancelled Potassium Cancelled Chloride Cancelled Carbon Dioxide Cancelled BUN Cancelled Creatinine Cancelled Estimated GFR Cancelled BUN/Creatinine Ratio Cancelled Glucose Cancelled Lactate Cancelled Calcium Cancelled Total Bilirubin Cancelled AST Cancelled ALT Cancelled Alkaline Phosphatase Cancelled Total Creatine Kinase Cancelled CK-MB (CK-2) Cancelled CK-MB (CK-2) Rel Index Cancelled Troponin I Cancelled NT-Pro-B Natriuret Pep Cancelled Total Protein Cancelled Albumin Cancelled Globulin Cancelled Albumin/Globulin Ratio Cancelled Lipase (23-300) U/L Procalcitonin (<0.5) ng/mL Urine Color Urine Appearance Urine pH (4.5-8.0) Ur Specific [place] (1.000-1.035) Urine Protein (Negative) Urine Glucose (UA) (Negative) g/dL Urine Ketones (NEGATIVE) Urine Occult Blood (Negative) Urine Nitrate (Negative) Urine Bilirubin (NEGATIVE) Urine Urobilinogen (0.2) E.U./dL Ur Leukocyte Esterase (NEGATIVE) Urine RBC (0-5/HPF) Urine WBC (0-5/HPF) Urine Bacteria (None) Ur Culture Indicated? Micro UA Comment SARS-CoV-2 (PCR) (Negative) 01/06/22 01/06/22 01/06/22 Range/Units 11:06 11:06 11:06 WBC 6.6 RBC 4.47 L Hgb 13.2 L Hct 39.4 L MCV 88.1 MCH 29.6 MCHC 33.6 RDW 14.4 Plt Count 188 Neut % (Auto) 80.7 H Lymph % (Auto) 8.2 L Williamson % (Auto) 9.5 Eos % (Auto) 1.2 L Baso % (Auto) 0.4 Neut # (Auto) 5300 Lymph # (Auto) 500 L Williamson # (Auto) 600 Eos # (Auto) 100 Baso # (Auto) 0 PT Cancelled 11.3 INR Cancelled 1.0 D-Dimer (<230) ng/mL Sodium Potassium Chloride Carbon Dioxide BUN Creatinine Estimated GFR BUN/Creatinine Ratio Glucose Lactate Calcium Total Bilirubin AST ALT Alkaline Phosphatase Total Creatine Kinase CK-MB (CK-2) CK-MB (CK-2) Rel Index Troponin I NT-Pro-B Natriuret Pep Total Protein Albumin Globulin Albumin/Globulin Ratio Lipase (23-300) U/L Procalcitonin (<0.5) ng/mL Urine Color Urine Appearance Urine pH (4.5-8.0) Ur Specific [place] (1.000-1.035) Urine Protein (Negative) Urine Glucose (UA) (Negative) g/dL Urine Ketones (NEGATIVE) Urine Occult Blood (Negative) Urine Nitrate (Negative) Urine Bilirubin (NEGATIVE) Urine Urobilinogen (0.2) E.U./dL Ur Leukocyte Esterase (NEGATIVE) Urine RBC (0-5/HPF) Urine WBC (0-5/HPF) Urine Bacteria (None) Ur Culture Indicated? Micro UA Comment SARS-CoV-2 (PCR) (Negative) 01/06/22 01/06/22 01/06/22 Range/Units 11:06 11:06 11:06 WBC RBC Hgb Hct MCV MCH MCHC RDW Plt Count Neut % (Auto) Lymph % (Auto) Williamson % (Auto) Eos % (Auto) Baso % (Auto) Neut # (Auto) Lymph # (Auto) Williamson # (Auto) Eos # (Auto) Baso # (Auto) PT INR D-Dimer (<230) ng/mL Sodium 139 Potassium 4.0 Chloride 105 Carbon Dioxide 23 BUN 29 H Creatinine 1.66 H Estimated GFR 42 L BUN/Creatinine Ratio 17.5 Glucose 124 H Lactate 3.1 H Calcium 9.3 Total Bilirubin 0.7 AST 37 ALT 40 Alkaline Phosphatase 89 Total Creatine Kinase 107 CK-MB (CK-2) 0.31 CK-MB (CK-2) Rel Index 0.3 L Troponin I < 0.012 NT-Pro-B Natriuret Pep 22 Total Protein 7.6 Albumin 4.4 Globulin 3.2 Albumin/Globulin Ratio 1.4 Lipase (23-300) U/L Procalcitonin (<0.5) ng/mL Urine Color Urine Appearance Urine pH (4.5-8.0) Ur Specific [place] (1.000-1.035) Urine Protein (Negative) Urine Glucose (UA) (Negative) g/dL Urine Ketones (NEGATIVE) Urine Occult Blood (Negative) Urine Nitrate (Negative) Urine Bilirubin (NEGATIVE) Urine Urobilinogen (0.2) E.U./dL Ur Leukocyte Esterase (NEGATIVE) Urine RBC (0-5/HPF) Urine WBC (0-5/HPF) Urine Bacteria (None) Ur Culture Indicated? Micro UA Comment SARS-CoV-2 (PCR) (Negative) 01/06/22 01/06/22 01/06/22 Range/Units 11:06 11:06 11:06 WBC RBC Hgb Hct MCV MCH MCHC RDW Plt Count Neut % (Auto) Lymph % (Auto) Williamson % (Auto) Eos % (Auto) Baso % (Auto) Neut # (Auto) Lymph # (Auto) Williamson # (Auto) Eos # (Auto) Baso # (Auto) PT INR D-Dimer 276 H (<230) ng/mL Sodium Potassium Chloride Carbon Dioxide BUN Creatinine Estimated GFR BUN/Creatinine Ratio Glucose Lactate Calcium Total Bilirubin AST ALT Alkaline Phosphatase Total Creatine Kinase CK-MB (CK-2) CK-MB (CK-2) Rel Index Troponin I NT-Pro-B Natriuret Pep 22 Total Protein Albumin Globulin Albumin/Globulin Ratio Lipase 68 (23-300) U/L Procalcitonin (<0.5) ng/mL Urine Color Urine Appearance Urine pH (4.5-8.0) Ur Specific [place] (1.000-1.035) Urine Protein (Negative) Urine Glucose (UA) (Negative) g/dL Urine Ketones (NEGATIVE) Urine Occult Blood (Negative) Urine Nitrate (Negative) Urine Bilirubin (NEGATIVE) Urine Urobilinogen (0.2) E.U./dL Ur Leukocyte Esterase (NEGATIVE) Urine RBC (0-5/HPF) Urine WBC (0-5/HPF) Urine Bacteria (None) Ur Culture Indicated? Micro UA Comment SARS-CoV-2 (PCR) (Negative) 01/06/22 01/06/22 01/06/22 Range/Units 11:37 13:55 15:10 WBC RBC Hgb Hct MCV MCH MCHC RDW Plt Count Neut % (Auto) Lymph % (Auto) Williamson % (Auto) Eos % (Auto) Baso % (Auto) Neut # (Auto) Lymph # (Auto) Williamson # (Auto) Eos # (Auto) Baso # (Auto) PT INR D-Dimer (<230) ng/mL Sodium Potassium Chloride Carbon Dioxide BUN Creatinine Estimated GFR BUN/Creatinine Ratio Glucose Lactate 2.4 H Calcium Total Bilirubin AST ALT Alkaline Phosphatase Total Creatine Kinase CK-MB (CK-2) CK-MB (CK-2) Rel Index Troponin I NT-Pro-B Natriuret Pep Total Protein Albumin Globulin Albumin/Globulin Ratio Lipase (23-300) U/L Procalcitonin (<0.5) ng/mL Urine Color Yellow Urine Appearance Clear Urine pH 5.0 (4.5-8.0) Ur Specific [place] 1.010 (1.000-1.035) Urine Protein Negative (Negative) Urine Glucose (UA) Negative (Negative) g/dL Urine Ketones Negative (NEGATIVE) Urine Occult Blood Negative (Negative) Urine Nitrate Negative (Negative) Urine Bilirubin Negative (NEGATIVE) Urine Urobilinogen 0.2 (0.2) E.U./dL Ur Leukocyte Esterase Negative (NEGATIVE) Urine RBC None seen (0-5/HPF) Urine WBC None seen (0-5/HPF) Urine Bacteria None seen (None) Ur Culture Indicated? Cult not indicated Micro UA Comment Microscopic normal SARS-CoV-2 (PCR) Negative (Negative) 01/06/22 Range/Units 15:10 WBC RBC Hgb Hct MCV MCH MCHC RDW Plt Count Neut % (Auto) Lymph % (Auto) [place] % (Auto) Eos % (Auto) Baso % (Auto) Neut # (Auto) Lymph # (Auto) Williamson # (Auto) Eos # (Auto) Baso # (Auto) PT INR D-Dimer (<230) ng/mL Sodium Potassium Chloride Carbon Dioxide BUN Creatinine Estimated GFR BUN/Creatinine Ratio Glucose Lactate Calcium Total Bilirubin AST ALT Alkaline Phosphatase Total Creatine Kinase 101 CK-MB (CK-2) 0.36 CK-MB (CK-2) Rel Index 0.4 L Troponin I < 0.012 NT-Pro-B Natriuret Pep Total Protein Albumin Globulin Albumin/Globulin Ratio Lipase (23-300) U/L Procalcitonin 0.08 (<0.5) ng/mL Urine Color Urine Appearance Urine pH (4.5-8.0) Ur Specific [place] (1.000-1.035) Urine Protein (Negative) Urine Glucose (UA) (Negative) g/dL Urine Ketones (NEGATIVE) Urine Occult Blood (Negative) Urine Nitrate (Negative) Urine Bilirubin (NEGATIVE) Urine Urobilinogen (0.2) E.U./dL Ur Leukocyte Esterase (NEGATIVE) Urine RBC (0-5/HPF) Urine WBC (0-5/HPF) Urine Bacteria (None) Ur Culture Indicated? Micro UA Comment SARS-CoV-2 (PCR) (Negative) Imaging Data Chest x-ray: Radiologist's Impression: PROCEDURE:? XR CHEST 1V ? INDICATIONS:? shortness of breath/DIZZY ? TECHNIQUE:? One view of the chest was acquired.? ? COMPARISON:? [facility], CR, XR CHEST 2V, 10/29/2021, 11:55. ? FINDINGS:? ? Surgical changes and devices:? None.? ? Lungs and pleura:? Lungs are clear.? No pleural effusions or pneumothorax.? ? Mediastinum:? Mediastinal contours appear normal.? Heart size is normal. ? Bones and chest wall:? No suspicious bony lesions.? Overlying soft tissues appear unremarkable.? ? IMPRESSION:? No acute cardiopulmonary disease process. ? ? Dictated by: Ekaterina Gibson MD, PhD on 01/06/2022 at 12:24 ? ? Approved by: Ekaterina Gibson MD, PhD on 01/06/2022 at 12:24 ? ECG Data Interpretation: EKG independently reviewed by Dr. Hunter at 1103 and reveals normal sinus rhythm at 77 bpm with regular axis and intervals. No STEMI, ST segment changes, arrhythmia, or acute ischemic changes. MDM Narrative Medical decision making narrative: This is a 76-year-old male with history significant for CKD stage 3, hypertension, psoriasis, peptic ulcer disease, prostate cancer and is currently undergoing radiation for this, who presents the emergency department for dizziness, lightheadedness, and palpitations which occurred this morning. Patient endorses feeling fatigued recently, denies any recent fever, feels like his heart was racing this morning. Patient had a long wait in the waiting room, when he got back to a room he reported feeling much better. His lab work overall is fairly unremarkable he does not have any chest pain, he does not have any shortness of breath, wheezing, abnormal breath sounds, but on exam he does appear fatigued, he started having chills during my assessment. His urine was negative for wbc's and rbc's, his lab work does not reveal any leukocytosis, hemoglobin is 13.2, hematocrit 39.4, primarily neutrophil percentage at 80.7%, D-dimer was 276 but after age correction, this is not clinically significant. His creatinine is elevated at 1.66 but this is stable with his baseline, GFR today is 42, this is also stable with his baseline, his lactate was elevated at 3.1 with a negative troponin, and BNP level of 22. He was given 1 L of normal saline, his lipase was 68, chest x-ray was negative for patchy infiltrate, pleural effusions or pneumothorax. EKG was without any ST changes or significant findings. Shows normal sinus rhythm without any ectopy. Blood cultures were obtained and are pending. Repeat troponin was negative, and repeat lactate was 2.4 which is improved. Patient recently was started on metoprolol which he thinks is contributing to his lightheadedness, his circle cutting saw operator is Dr. Nolasco, I encouraged him to follow-up closely with this provider about this, his vital signs were within normal ranges today. CT chest abdomen pelvis was ordered for fear of possible pulmonary embolism and for possible infection without a source, this did not show any acute changes of concern. It did show postsurgical changes seen the prostate gland consistent with patient's history of prostate cancer with mild bladder wall thickening which could represent infectious or inflammatory cystitis, no stones or hydronephrosis, no discrete bladder wall mass. It showed a normal-appearing appendix, no free fluid or free air and no abscess collection without bowel obstruction or bowel wall thickening, colonic diverticulosis without diverticulitis, bibasilar linear scarring and atelectasis, no focal infiltrates, pleural effusions, or pneumothorax. Well-circumscribed hypodensity scattered in the right and left hepatic lobes likely represent hepatic cysts unchanged from previous PET CT study. No enlarged lymph nodes seen in the chest abdomen or pelvis, asymmetrically enlarged right thyroid lobe with multiple hypodense right thyroid lobe nodules concerning for nodular goiter. Overall, this is a positive workup without any significant findings of concern. Patient understands to monitor his symptoms for worsening, if he develops any dysuria, urinary retention or frequency, encouraged him to have another urinary test to rule out acute cystitis or prostatitis. Patient does not have any tachypnea, tachycardia, hypoxia, shortness of breath, chest pain, or any current symptoms of concern. He is no longer having chills, he is pleasant, afebrile and his vital signs are within normal limits. His lungs are clear throughout, he does not have any new murmurs or abnormal exam findings. I recommend close follow-up with his circle cutting saw operator, he may feel symptoms from his metoprolol dosing, encouraged him to talk to his primary or his circle cutting saw operator prior to changing his medication but if he notices it after taking it, he can break the tab in half and take half in the morning and half in the evening if this is helpful. <Joyce Hunter, DO - Last Filed: 01/14/22 07:53> Lab Data Labs: Lab Results 01/06/22 01/06/22 01/06/22 Range/Units 11:06 11:06 11:06 WBC Cancelled RBC Cancelled Hgb Cancelled Hct Cancelled MCV Cancelled MCH Cancelled MCHC Cancelled RDW Cancelled Plt Count Cancelled Neut % (Auto) Cancelled Lymph % (Auto) Cancelled [place] % (Auto) Cancelled Eos % (Auto) Cancelled Baso % (Auto) Cancelled Neut # (Auto) Cancelled Lymph # (Auto) Cancelled Williamson # (Auto) Cancelled Eos # (Auto) Cancelled Baso # (Auto) Cancelled PT INR D-Dimer (<230) ng/mL Sodium Cancelled Potassium Cancelled Chloride Cancelled Carbon Dioxide Cancelled BUN Cancelled Creatinine Cancelled Estimated GFR Cancelled BUN/Creatinine Ratio Cancelled Glucose Cancelled Lactate Cancelled Calcium Cancelled Total Bilirubin Cancelled AST Cancelled ALT Cancelled Alkaline Phosphatase Cancelled Total Creatine Kinase Cancelled CK-MB (CK-2) Cancelled CK-MB (CK-2) Rel Index Cancelled Troponin I Cancelled NT-Pro-B Natriuret Pep Cancelled Total Protein Cancelled Albumin Cancelled Globulin Cancelled Albumin/Globulin Ratio Cancelled Lipase (23-300) U/L Procalcitonin (<0.5) ng/mL Urine Color Urine Appearance Urine pH (4.5-8.0) Ur Specific [place] (1.000-1.035) Urine Protein (Negative) Urine Glucose (UA) (Negative) g/dL Urine Ketones (NEGATIVE) Urine Occult Blood (Negative) Urine Nitrate (Negative) Urine Bilirubin (NEGATIVE) Urine Urobilinogen (0.2) E.U./dL Ur Leukocyte Esterase (NEGATIVE) Urine RBC (0-5/HPF) Urine WBC (0-5/HPF) Urine Bacteria (None) Ur Culture Indicated? Micro UA Comment SARS-CoV-2 (PCR) (Negative) 01/06/22 01/06/22 01/06/22 Range/Units 11:06 11:06 11:06 WBC 6.6 RBC 4.47 L Hgb 13.2 L Hct 39.4 L MCV 88.1 MCH 29.6 MCHC 33.6 RDW 14.4 Plt Count 188 Neut % (Auto) 80.7 H Lymph % (Auto) 8.2 L [place] % (Auto) 9.5 Eos % (Auto) 1.2 L Baso % (Auto) 0.4 Neut # (Auto) 5300 Lymph # (Auto) 500 L Williamson # (Auto) 600 Eos # (Auto) 100 Baso # (Auto) 0 PT Cancelled 11.3 INR Cancelled 1.0 D-Dimer (<230) ng/mL Sodium Potassium Chloride Carbon Dioxide BUN Creatinine Estimated GFR BUN/Creatinine Ratio Glucose Lactate Calcium Total Bilirubin AST ALT Alkaline Phosphatase Total Creatine Kinase CK-MB (CK-2) CK-MB (CK-2) Rel Index Troponin I NT-Pro-B Natriuret Pep Total Protein Albumin Globulin Albumin/Globulin Ratio Lipase (23-300) U/L Procalcitonin (<0.5) ng/mL Urine Color Urine Appearance Urine pH (4.5-8.0) Ur Specific [place] (1.000-1.035) Urine Protein (Negative) Urine Glucose (UA) (Negative) g/dL Urine Ketones (NEGATIVE) Urine Occult Blood (Negative) Urine Nitrate (Negative) Urine Bilirubin (NEGATIVE) Urine Urobilinogen (0.2) E.U./dL Ur Leukocyte Esterase (NEGATIVE) Urine RBC (0-5/HPF) Urine WBC (0-5/HPF) Urine Bacteria (None) Ur Culture Indicated? Micro UA Comment SARS-CoV-2 (PCR) (Negative) 01/06/22 01/06/22 01/06/22 Range/Units 11:06 11:06 11:06 WBC RBC Hgb Hct MCV MCH MCHC RDW Plt Count Neut % (Auto) Lymph % (Auto) [place] % (Auto) Eos % (Auto) Baso % (Auto) Neut # (Auto) Lymph # (Auto) Williamson # (Auto) Eos # (Auto) Baso # (Auto) PT INR D-Dimer (<230) ng/mL Sodium 139 Potassium 4.0 Chloride 105 Carbon Dioxide 23 BUN 29 H Creatinine 1.66 H Estimated GFR 42 L BUN/Creatinine Ratio 17.5 Glucose 124 H Lactate 3.1 H Calcium 9.3 Total Bilirubin 0.7 AST 37 ALT 40 Alkaline Phosphatase 89 Total Creatine Kinase 107 CK-MB (CK-2) 0.31 CK-MB (CK-2) Rel Index 0.3 L Troponin I < 0.012 NT-Pro-B Natriuret Pep 22 Total Protein 7.6 Albumin 4.4 Globulin 3.2 Albumin/Globulin Ratio 1.4 Lipase (23-300) U/L Procalcitonin (<0.5) ng/mL Urine Color Urine Appearance Urine pH (4.5-8.0) Ur Specific [place] (1.000-1.035) Urine Protein (Negative) Urine Glucose (UA) (Negative) g/dL Urine Ketones (NEGATIVE) Urine Occult Blood (Negative) Urine Nitrate (Negative) Urine Bilirubin (NEGATIVE) Urine Urobilinogen (0.2) E.U./dL Ur Leukocyte Esterase (NEGATIVE) Urine RBC (0-5/HPF) Urine WBC (0-5/HPF) Urine Bacteria (None) Ur Culture Indicated? Micro UA Comment SARS-CoV-2 (PCR) (Negative) 01/06/22 01/06/22 01/06/22 Range/Units 11:06 11:06 11:06 WBC RBC Hgb Hct MCV MCH MCHC RDW Plt Count Neut % (Auto) Lymph % (Auto) Williamson % (Auto) Eos % (Auto) Baso % (Auto) Neut # (Auto) Lymph # (Auto) Williamson # (Auto) Eos # (Auto) Baso # (Auto) PT INR D-Dimer 276 H (<230) ng/mL Sodium Potassium Chloride Carbon Dioxide BUN Creatinine Estimated GFR BUN/Creatinine Ratio Glucose Lactate Calcium Total Bilirubin AST ALT Alkaline Phosphatase Total Creatine Kinase CK-MB (CK-2) CK-MB (CK-2) Rel Index Troponin I NT-Pro-B Natriuret Pep 22 Total Protein Albumin Globulin Albumin/Globulin Ratio Lipase 68 (23-300) U/L Procalcitonin (<0.5) ng/mL Urine Color Urine Appearance Urine pH (4.5-8.0) Ur Specific [place] (1.000-1.035) Urine Protein (Negative) Urine Glucose (UA) (Negative) g/dL Urine Ketones (NEGATIVE) Urine Occult Blood (Negative) Urine Nitrate (Negative) Urine Bilirubin (NEGATIVE) Urine Urobilinogen (0.2) E.U./dL Ur Leukocyte Esterase (NEGATIVE) Urine RBC (0-5/HPF) Urine WBC (0-5/HPF) Urine Bacteria (None) Ur Culture Indicated? Micro UA Comment SARS-CoV-2 (PCR) (Negative) 01/06/22 01/06/22 01/06/22 Range/Units 11:37 13:55 15:10 WBC RBC Hgb Hct MCV MCH MCHC RDW Plt Count Neut % (Auto) Lymph % (Auto) [place] % (Auto) Eos % (Auto) Baso % (Auto) Neut # (Auto) Lymph # (Auto) Williamson # (Auto) Eos # (Auto) Baso # (Auto) PT INR D-Dimer (<230) ng/mL Sodium Potassium Chloride Carbon Dioxide BUN Creatinine Estimated GFR BUN/Creatinine Ratio Glucose Lactate 2.4 H Calcium Total Bilirubin AST ALT Alkaline Phosphatase Total Creatine Kinase CK-MB (CK-2) CK-MB (CK-2) Rel Index Troponin I NT-Pro-B Natriuret Pep Total Protein Albumin Globulin Albumin/Globulin Ratio Lipase (23-300) U/L Procalcitonin (<0.5) ng/mL Urine Color Yellow Urine Appearance Clear Urine pH 5.0 (4.5-8.0) Ur Specific [place] 1.010 (1.000-1.035) Urine Protein Negative (Negative) Urine Glucose (UA) Negative (Negative) g/dL Urine Ketones Negative (NEGATIVE) Urine Occult Blood Negative (Negative) Urine Nitrate Negative (Negative) Urine Bilirubin Negative (NEGATIVE) Urine Urobilinogen 0.2 (0.2) E.U./dL Ur Leukocyte Esterase Negative (NEGATIVE) Urine RBC None seen (0-5/HPF) Urine WBC None seen (0-5/HPF) Urine Bacteria None seen (None) Ur Culture Indicated? Cult not indicated Micro UA Comment Microscopic normal SARS-CoV-2 (PCR) Negative (Negative) 01/06/22 Range/Units 15:10 WBC RBC Hgb Hct MCV MCH MCHC RDW Plt Count Neut % (Auto) Lymph % (Auto) [place] % (Auto) Eos % (Auto) Baso % (Auto) Neut # (Auto) Lymph # (Auto) [place] # (Auto) Eos # (Auto) Baso # (Auto) PT INR D-Dimer (<230) ng/mL Sodium Potassium Chloride Carbon Dioxide BUN Creatinine Estimated GFR BUN/Creatinine Ratio Glucose Lactate Calcium Total Bilirubin AST ALT Alkaline Phosphatase Total Creatine Kinase 101 CK-MB (CK-2) 0.36 CK-MB (CK-2) Rel Index 0.4 L Troponin I < 0.012 NT-Pro-B Natriuret Pep Total Protein Albumin Globulin Albumin/Globulin Ratio Lipase (23-300) U/L Procalcitonin 0.08 (<0.5) ng/mL Urine Color Urine Appearance Urine pH (4.5-8.0) Ur Specific [place] (1.000-1.035) Urine Protein (Negative) Urine Glucose (UA) (Negative) g/dL Urine Ketones (NEGATIVE) Urine Occult Blood (Negative) Urine Nitrate (Negative) Urine Bilirubin (NEGATIVE) Urine Urobilinogen (0.2) E.U./dL Ur Leukocyte Esterase (NEGATIVE) Urine RBC (0-5/HPF) Urine WBC (0-5/HPF) Urine Bacteria (None) Ur Culture Indicated? Micro UA Comment SARS-CoV-2 (PCR) (Negative) Discharge Plan Departure Patient Disposition: Home Clinical Impression: Light-headed, Postural dizziness Instructions: Dehydration, DI for Orthostatic Hypotension, DI for Dizziness-Nonvertigo Activity Restrictions/Additional Instructions: *You have been diagnosed with dizziness which is most likely related to dehydration. On your extensive workup today we did not find any infectious source to cause her symptoms. Your CT chest abdomen pelvis shows some mild bladder wall thickening which could be inflammatory or infectious but your urine was negative for infection. Your colon appears without obstruction or abnormal wall thickening, your lungs appear clear without pleural effusions or pneumothorax, you do not have any enlarged lymph nodes in your chest abdomen or pelvis which is great news. Your white blood cell count was not elevated, your D-dimer was 276 which is not significant for blood clot, your creatinine today was 1.66 which is stable compared with your priors, and your lactate was improved after some IV hydration. Please continue to hydrate today, you are likely still slightly dehydrated, I want you to drink plenty of water before going to bed today. Your BNP was not elevated, your troponin was negative on both checks so I do not think that this is heart strain or any cardiac involvement at this time. Please continue to monitor your symptoms, your COVID was negative. Please schedule a follow-up appointment with Dr. Nolasco for follow-up within one week to discuss your metoprolol dosing and how it is making you feel. Please have your urine tested again if you notice a change in your output or the odor of your urine. *What to do: *Please continue to take your regular medications as directed. [ ] New medication prescriptions sent to your pharmacy: [ ] [ ] New medication written as a paper prescription [ x] No new medications given *Please follow up with your primary care provider in 2-3 days, call for an appointment. Let them know you were seen in the Emergency Department and that we asked that you be seen for follow-up. We will electronically transmit a record of today's note if your PCP is in our system *If you do not have a primary care provider please contact [phone] to establish care with one of the [facility] primary care providers. *Return to Emergency Department if you should have any new, worsening or concerning symptoms, such as [fever greater than 101F, chills, worsening pain, persistent vomiting or other bothersome symptoms] Prescriptions: No Action spironolactone 25 mg tablet 50 mg PO BEDTIME atorvastatin [Lipitor] 20 mg tablet 20 mg PO BEDTIME clobetasol 0.05 % ointment See Rx Instructions .ROUTE .COMPLEX PRN (Reason: Psoriasis) Rx Instructions: Apply to skin PRN for psoriasis losartan 25 mg tablet 25 mg PO DAILY febuxostat 40 mg tablet 40 mg PO DAILY sucralfate 1 gram tablet 1 g PO AC tamsulosin 0.4 mg capsule 0.4 mg PO ONCE PM aspirin 81 mg Tablet 81 mg PO DAILY Vitamin D3 2,000 units PO DAILY Mycelex 1 % topical PRN PRN (Reason: Rash) omeprazole 20 mg Tablet,Delayed Release (Dr/Ec) 20 mg PO DAILY famotidine 20 mg Tablet 20 mg PO BID colchicine 0.6 mg Tablet 0.6 mg PO PRN PRN (Reason: Gout) Rx Instructions: For gout attacks ranitidine HCl 150 mg Tablet 150 mg PO PRN PRN (Reason: Acid Reflux) cetirizine [Zyrtec] 10 mg Tablet 10 mg PO DAILY PRN (Reason: allergies) sucralfate [Carafate] 1 gram tablet 1 g PO QID Qty: 120 0RF Referrals: Rene Laureano DO [Non-Staff] - Greg Nolasco MD [Physician] - 5-7 days Serena Morley ARNP [Primary Care Provider] - Visit Report Forms: Patient Portal/API <Joyce Hunter DO - Last Filed: 01/14/22 07:53> Cosign ED Attending Tongature Attestation: I was immediately available in the department for consultation. Documentation has been reviewed.
[2022-01-06 13:56] LABS: NT-proBNP (BNP-Adult 18+) 22 pg/mL (<450)
[2022-01-06 13:56] LABS: COVID19 -Nasal RAPID Negative (Negative)
[2022-01-06 13:57] LABS: Reflexed Lactate in 2 Hours Y
[2022-01-06 14:14] LABS: Appearance Urine UA CLEAR; Bilirubin Urine UA NEGATIVE (NEGATIVE); Color Urine UA YELLOW; Glucose Urine UA NEGATIVE (Negative); Ketones Urine UA NEGATIVE (NEGATIVE); Leukocyte Esterase Urine UA NEGATIVE (NEGATIVE); Nitrite Urine UA NEGATIVE (Negative); Occult Blood Urine UA NEGATIVE (Negative); Protein Urine UA NEGATIVE (Negative); Urobilinogen Urine UA 0.2 E.U./dL (0.2)
[2022-01-06 14:19] LABS: Bacteria Urine None Seen; Culture Indicated Urine Cult Not Indicated; RBC Urine None Seen (0-5/HPF); Urine Comments Microscopic Normal; WBC Urine None Seen (0-5/HPF)
[2022-01-06 14:41] LABS: Lipase 68 U/L (23-300)
--- NOTE | 2022-01-06 14:43 | DI.CT.S_ITS ---
PROCEDURE: CT CHEST ABD PEL W CON INDICATIONS: sepsis concern w/out source TECHNIQUE: After the administration of intravenous contrast, 5 mm thick sections acquired from the lung apices to the symphysis. 5 mm coronal and sagittal reformats were performed, with additional 7 mm MIP reformats through the lungs. For radiation dose reduction, the following was used: automated exposure control, adjustment of mA and/or kV according to patient size. COMPARISON: Outside Film, NM, PET NECK TO MID THIGH, 02/04/2021, 13:42. FINDINGS: Image quality: Excellent. CHEST: Lungs and pleura: No acute airspace opacities. Linear scarring/atelectasis scattered in bilateral lung bases are seen more prominent at left lung base. No pleural effusions or pneumothorax. Central and peripheral airways appear patent and normal in caliber. Mediastinum: Heart size is enlarged. No pericardial effusion. No mediastinal or hilar adenopathy by size criteria. Thoracic aorta and central pulmonary arteries are normal in size. Esophagus is normal in caliber. No hiatal hernia. Chest wall: No axillary or supraclavicular adenopathy by size criteria. Asymmetrically enlarged right thyroid lobe is again seen with internal hypodense nodules not significantly changed from prior PET-CT scan. ABDOMEN: Solid organs: Liver is normal in size and enhancement. Multiple well-circumscribed and lobulated hypodense areas are again seen scattered in left hepatic lobe unchanged in size and appearance from prior PET-CT study and likely represent hepatic cysts. Smaller hypodense area in right hepatic lobe are also seen unchanged from prior study. Gallbladder is within normal limits. Biliary system is non dilated. Pancreas enhances normally. Spleen is normal in size and enhancement. No adrenal nodules. Kidneys demonstrate normal size and enhancement, without hydronephrosis. Peritoneum and bowel: Bowel loops demonstrate normal wall thickness and caliber. No free fluid or air. Appendix is visualized and is within normal limits. Extensive colonic diverticulosis is seen. No colonic wall thickening or mesenteric fat stranding. No abscess collection. Nodes and vessels: No retroperitoneal or mesenteric adenopathy by size criteria. Aorta and inferior vena cava are normal in size. Miscellaneous: No ventral hernias. PELVIS: Genitourinary: Borderline thickening of bladder wall is noted without discrete bladder wall mass. Surgical clips are noted within prostate gland. Miscellaneous: No inguinal hernias or adenopathy. Bones: No suspicious bony lesions. No vertebral body compression fractures. Degenerative disc disease throughout thoracic and lumbar spine is seen. IMPRESSION: 1. Postsurgical changes seen in prostate gland consistent with patient's history of prostate cancer. Mild bladder wall thickening which may represent infectious or inflammatory cystitis suggest clinical correlation. No stones or hydronephrosis. No discrete bladder wall mass. 2. No bowel obstruction or abnormal bowel wall thickening. Colonic diverticulosis without evidence of acute diverticulitis. Normal appearing appendix. No free fluid or free air. No abscess collection. 3. Bibasilar linear scarring/atelectasis. No focal infiltrate, pleural effusion or pneumothorax. 4. Well-circumscribed hypodensities scattered in right and left hepatic lobes likely represent hepatic cysts unchanged from previous PET-CT study. 5. No enlarged lymph nodes are seen in chest, abdomen or pelvis. 6. Asymmetrically enlarged right thyroid lobe with multiple hypodense right thyroid lobe nodules concerning for nodular goiter. Ultrasound of thyroid gland can be done for further evaluation if indicated. Dictated by: Tucker Simpson M.D. on 01/06/2022 at 15:04 Approved by: Tucker Simpson M.D. on 01/06/2022 at 15:18
[2022-01-06 15:35] LABS: Creatine Kinase 101 U/L (55-170)
[2022-01-06 15:47] LABS: Troponin I < 0.012 ng/mL (0.01-0.034)
[2022-01-06 15:51] LABS: CKMB % Relative Index 0.4 % (1.5-5.0); Creatine Kinase MB 0.36 ng/mL (<2.37)
[2022-01-06 15:52] LABS: Procalcitonin 0.08 ng/mL (<0.5)
[2022-01-06 16:09] LABS: Lactate 2HR (Lactic Acid Rflx) 2.4 mmol/L (0.7-2.1)
== END 2022-01-06 17:00 | disposition home or self-care (01) ==
PROVIDERS: Emergency Medicine; Emergency Provider Nurse Practitioner Critical Care Medicine; PCP Nurse Practitioner Family
DX: R42 Dizziness and giddiness (principal); C61 Malignant neoplasm of prostate; K27.9 Peptic ulcer, site unspecified, unspecified as acute or chronic, without hemorrhage or perforation; E11.22 Type 2 diabetes mellitus with diabetic chronic kidney disease; Z20.822 Contact with and (suspected) exposure to COVID-19
CPT/HCPCS: 36415; 71045; 71260; 74177; 80053; 81001; 82550; 82553; 83605; 83690; 83880; 84145; 84484; 85025; 85379; 85610; 87040; 87635; 93005; 96360; 99284; C9803; Q9967

== ENCOUNTER → 2022-01-20 06:43 | Outpatient (CLI) | payer MEDICARE, OTHER, SELFPAY ==
[2020-10-30 00:02] VITALS: BMI 36.3
[2022-01-20 09:14] LABS: Add Manual Diff / Slide Review NO; Basophils Absolute Auto 0 /uL (0-100); Basophils Percent Auto 0.5 % (0-2); Eosinophils Absolute Auto 100 /uL (0-450); Eosinophils Percent Auto 2.4 % (2-4); Hematocrit 34.8 % (41-53); Lymphocytes Absolute Auto 600 /uL (1100-4500); Lymphocytes Percent Auto 11.1 % (25-40); Mean Corpuscular HGB Conc 34.6 % (30-36); Mean Corpuscular Hemoglobin 30.1 PG (26-34); Mean Corpuscular Volume 86.9 fL (80-100); Monocytes Absolute Auto 600 /uL (0-900); Monocytes Percent Auto 11.4 % (3-14); Neutrophils Absolute Auto 3800 /uL (1500-7000); Neutrophils Percent Auto 74.6 % (50-75); Platelet Count 163 X10^3/uL (150-400); Red Cell Distribution Width 14.5 % (11.6-14.8); White Blood Cell Count 5.2 X10^3/uL (4.5-11.0)
[2022-01-20 09:43] LABS: BUN Creatinine Ratio 15.6 (6-22); Blood Urea Nitrogen 22 mg/dL (9-20); Calcium 8.5 mg/dL (8.4-10.2); Carbon Dioxide 19 mmol/L (22-32); Chloride 110 mmol/L (98-107); Cholesterol 124 mg/dL (140-199); Estimated Glomerular Filt Rate 51 mL/min (>60); Glucose 108 mg/dL (80-110); HDL Cholesterol 39 mg/dL (40-60); HEMOLYSIS < 15 (0-50); LDL Cholesterol Calculated 58 mg/dL (<100); Sodium 142 mmol/L (137-145); Triglycerides 133 mg/dL (35-150)
== END ==
PROVIDERS: PCP Nurse Practitioner Family; Referring Provider Internal Medicine Cardiovascular Disease; Visit Provider Internal Medicine Cardiovascular Disease
DX: E78.5 Hyperlipidemia, unspecified (principal); I10 Essential (primary) hypertension; R06.00 Dyspnea, unspecified
CPT/HCPCS: 36415; 80048; 80061; 85025

== ENCOUNTER → 2022-03-07 14:28 | Outpatient (CLI) | payer MEDICARE, OTHER, SELFPAY ==
[2020-10-30 00:02] VITALS: BMI 36.3
--- NOTE | 2022-03-07 | DI.ECHO.S_ITS ---
[facility]---------+ [facility] +---------+ : : [address] : : : : [id number] : : : : Phone: [phone]+ Echocardiogram Report + + :Name: ORLANDO TAYLOR Study Date: 03/07/2022 Height: 64 in : :[facility] ReadingLocation: Weight: 222 lb : : Gender: Male BSA: 2.0 m2 : :: 1945 Age: 77 yrs BP: 163/103 mmHg: :Reason For Study: Pericardial Effusion : :Ordering Physician: YAMIL, : :ANGELICA Performed By: Dwight Jacinto : :Referring: ANGELICA NOLASCO : + + Interpretation Summary 1) Normal left ventricular thickness, size, wall motion, and systolic function (EF 55-60%). 2) Normal right ventricular size and function. 3) No significant valvular abnormalities. 4) There is a trivial to small circumferential pericardial effusion noted. 5) Compared to the Echo done 11/08/2021, no significnat change. Procedure: A two-dimensional transthoracic echocardiogram with color flow and Doppler was performed. The study quality was technically adequate. Comparison is made with the echocardiogram of 11/08/2021. The patient was in normal sinus rhythm during the exam. Left Ventricle: The left ventricle is normal in size and wall thickness. Left ventricular systolic function is normal. The ejection fraction is estimated to be 55-60%. There are no focal wall motion abnormalities. Right Ventricle: The right ventricle is normal in size and function. Atria: Both atria are normal in size. The interatrial septum grossly appears intact with no obvious evidence for an atrial septal defect. Mitral Valve: The mitral valve is normal in structure and function. There is no mitral regurgitation noted. Aortic Valve: The aortic valve is normal in structure and function. There is no aortic valve stenosis. No aortic regurgitation is present. Tricuspid Valve: The tricuspid valve is normal in structure and function. There is trace tricuspid regurgitation. The right ventricular systolic pressure is estimated to be at least 23 mmHg based on an estimated right atrial pressure of 3 mm Hg. Pulmonic Valve: The pulmonic valve is not well visualized. There is no pulmonic valvular regurgitation. Great Vessels: The aortic root is normal size. The aortic arch could not be visualized. The IVC is of normal diameter and collapses greater than 50% with a sniff. This suggests a low right atrial pressure of 3 mm Hg. Pericardium/ Pleura There is a trivial to small pericardial effusion noted. There is no pleural effusion. MMode/2D Measurements & Calculations LVIDd: 5.0 cm LVOT diam: 2.1 cm LVIDs: 3.2 cm Ao root diam: 3.7 cm FS: 36.0 % IVSd: 1.1 cm LVPWd: 1.1 cm LV ojeda. diameter/BSA (cm/m^2): 2.4 LV sys. diameter/BSA (cm/m^2): 1.6 LA dimension: 2.5 cm RA long axis: 4.8 cm LA A2 area: 13.9 cm2 LA A4 area: 12.8 cm2 LA length (vol): 4.5 cm LA vol: 33.9 ml LA vol index: 16.6 ml/m2 TAPSE_phl: 2.0 cm Doppler Measurements & Calculations Ao V2 max: 128.0 cm/sec LVOT Max Moi: 80.3 cm/sec Ao V2 mean: 83.6 cm/sec LV V1 max P.6 mmHg Ao max P.0 mmHg LV V1 VTI: 16.6 cm Ao mean P.0 mmHg DAV(I,D): 2.5 cm2 Ao V2 VTI: 22.6 cm DAV(V,D): 2.2 cm2 sev ratio: 0.73 DAV indexed to BSA (cm^2/m^2): 1.2 MV E max moi: 54.4 cm/sec TR max moi: 222.0 cm/sec MV A max moi: 99.4 cm/sec TR max P.7 mmHg MV E/A: 0.55 Med Peak E' Moi: 4.0 cm/sec E/E' med: 13.7 Lat Peak E' Moi: 7.4 cm/sec E/E' lat: 7.4 E/e' average: 10.6 MV dec time: 0.24 sec SV(LVOT): 57.5 ml AV VR_phl: 0.63 DAV(VTI)/BSA_phl: 1.3 MV P1/2t-pr_phl: 69.0 msec Reading Physician:06:01 PM
== END ==
PROVIDERS: PCP Nurse Practitioner Family; Referring Provider Internal Medicine Cardiovascular Disease; Visit Provider Internal Medicine Cardiovascular Disease
DX: I31.39 Other pericardial effusion (noninflammatory) (principal)
CPT/HCPCS: 93306

== ENCOUNTER → 2022-08-03 06:40 | Outpatient (CLI) | payer MEDICARE, OTHER, SELFPAY ==
[2020-10-30 00:02] VITALS: BMI 36.3
[2022-08-03 09:48] LABS: BUN Creatinine Ratio 17.3 (6-22); Blood Urea Nitrogen 29 mg/dL (9-20); Calcium 8.8 mg/dL (8.4-10.2); Carbon Dioxide 19 mmol/L (22-32); Chloride 107 mmol/L (98-107); Estimated Glomerular Filt Rate 42 mL/min (>60); Glucose 108 mg/dL (80-110); HEMOLYSIS < 15 (0-50); Potassium 4.2 mmol/L (3.4-5.1); Sodium 140 mmol/L (137-145)
== END ==
PROVIDERS: PCP Nurse Practitioner Family; Referring Provider Internal Medicine Cardiovascular Disease; Visit Provider Internal Medicine Cardiovascular Disease
DX: I50.32 Chronic diastolic (congestive) heart failure (principal)
CPT/HCPCS: 36415; 80048

== ENCOUNTER 2023-03-08 13:57 | Emergency (ER) | payer MEDICARE, OTHER, SELFPAY ==
[2020-10-30 00:02] VITALS: BMI 36.3
[2023-03-08] VITALS (13 sets, daily range): BP systolic 116–154; BP diastolic 55–75; PULSE 64–88; RESP 10–24; TEMP 36.7–37.2; O2SAT 98–100; BMI 36.8
--- NOTE | 2023-03-08 14:19 | DI.RAD.S_ITS ---
PROCEDURE: XR CHEST 1V INDICATIONS: Shortness of breath TECHNIQUE: One view of the chest was acquired. COMPARISON: [facility], [place], XR CHEST 1V, 01/06/2022, 12:02. [facility], [place], XR CHEST 2V, 10/29/2021, 11:55. FINDINGS: Surgical changes and devices: None. Lungs and pleura: Lungs are clear. No pleural effusions or pneumothorax. Mediastinum: Mediastinal contours appear normal. Heart size is normal. Bones and chest wall: No suspicious bony lesions. Overlying soft tissues appear unremarkable. IMPRESSION: No acute cardiopulmonary process. Dictated by: Loyd Akins M.D. on 03/08/2023 at 15:06 Approved by: Loyd Akins M.D. on 03/08/2023 at 15:07
[2023-03-08 14:51] LABS: Add Manual Diff / Slide Review YES; Hematocrit 37.1 % (41-53); Hemoglobin 12.5 g/dL (13.5-17.5); Mean Corpuscular HGB Conc 33.7 % (30-36); Mean Corpuscular Hemoglobin 29.7 PG (26-34); Mean Corpuscular Volume 88.1 fL (80-100); Platelet Count 225 X10^3/uL (150-400); Red Blood Cell Count 4.21 X10^6/uL (4.5-5.9); Red Cell Distribution Width 14.9 % (11.6-14.8); White Blood Cell Count 5.8 X10^3/uL (4.5-11.0)
[2023-03-08 14:59] LABS: Prothrombin Time 11.8 SECONDS (10.1-12.7)
[2023-03-08 15:03] LABS: Alanine Aminotransferase 56 IU/L (<50); Albumin 4.1 g/dL (3.5-5.0); Albumin Globulin Ratio 1.3 (1.0-2.8); Alkaline Phosphatase 78 U/L (38-126); Anisocytosis 1+; Aspartate Aminotransferase 47 IU/L (17-59); BUN Creatinine Ratio 18.2 (6-22); Bilirubin Total 0.7 mg/dL (0.2-1.3); Blood Urea Nitrogen 32 mg/dL (9-20); Calcium 9.2 mg/dL (8.4-10.2); Carbon Dioxide 21 mmol/L (22-32); Chloride 106 mmol/L (98-107); Estimated Glomerular Filt Rate 39 mL/min (>60); Globulin 3.1 g/dL (1.7-4.1); Glucose 101 mg/dL (80-110); HEMOLYSIS < 15 (0-50); Lactate (Lactic Acid) 2.8 mmol/L (0.7-2.1); Neutrophils Absolute Manual 4466 /uL (3000-5900); Potassium 3.6 mmol/L (3.4-5.1); Sodium 136 mmol/L (137-145); Total Cells Counted 100; Total Protein 7.2 g/dL (6.3-8.2)
[2023-03-08 15:14] LABS: NT-proBNP (BNP-Adult 18+) < 20 pg/mL (<450); Troponin I < 0.012 ng/mL (0.01-0.034)
[2023-03-08] MEDS: SODIUM CHLORIDE 0.9% 1,000 ML 1000 ML IV ×2 (16:11→19:18)
--- NOTE | 2023-03-08 16:40 | ED.SOB ---
HPI - SOB/Dyspnea General Chief Complaint: Shortness of Breath/Dyspnea Stated Complaint: SOB, COVID + since 02/26/2023 Time Seen by Provider: 03/08/23 16:29 Source: patient Mode of arrival: Ambulatory Limitations: no limitations History of Present Illness HPI Narrative: This 70-year-old gentleman presents with primarily weakness, dyspnea, dyspnea on exertion. He is not having chest pain. He was diagnosed with COVID-19 25 February. He received Paxlovid therapy. He is here now due to the weakness and dyspnea. He is no underlying history of cardiopulmonary disease. He is nonsmoker. He currently has no headache, sore throat, or chest pain. He is occasional, nonproductive cough. He is no abdominal discomfort, he thinks his appetite is okay. He is not sure if he is drinking fluids. He is no urinary complaints. Related Data Home Medications Medication Instructions Recorded Confirmed Mycelex 1 % topical PRN PRN Rash 10/30/20 10/30/20 Vitamin D3 2,000 units PO DAILY 10/30/20 10/30/20 aspirin 81 mg tablet 81 mg PO DAILY 10/30/20 10/30/20 atorvastatin 20 mg tablet (Lipitor) 20 mg PO BEDTIME 10/30/20 10/30/20 cetirizine 10 mg tablet (Zyrtec) 10 mg PO DAILY PRN allergies 10/30/20 10/30/20 clobetasol 0.05 % topical ointment See Rx Instructions .Route 10/30/20 10/30/20 .COMPLEX PRN Psoriasis colchicine (gout) 0.6 mg tablet 0.6 mg PO PRN PRN Gout 10/30/20 10/30/20 famotidine 20 mg tablet 20 mg PO BID 10/30/20 10/30/20 febuxostat 40 mg tablet 40 mg PO DAILY 10/30/20 10/30/20 losartan 25 mg tablet 25 mg PO DAILY 10/30/20 10/30/20 omeprazole 20 mg tablet,delayed 20 mg PO DAILY 10/30/20 10/30/20 release ranitidine HCl 150 mg tablet 150 mg PO PRN PRN Acid Reflux 10/30/20 10/30/20 spironolactone 50 mg PO BEDTIME 10/30/20 10/30/20 sucralfate 1 gram tablet 1 g PO AC 10/30/20 10/30/20 tamsulosin 0.4 mg capsule 0.4 mg PO ONCE PM 10/30/20 10/30/20 Previous Rx's Medication Instructions Recorded sucralfate 1 gram tablet (Carafate) 1 g PO QID #120 tabs 12/21/20 Allergies Allergy/AdvReac Type Severity Reaction Status Date / Time felodipine Allergy Unknown Verified 01/06/22 10:47 lisinopril Allergy Unknown Verified 01/06/22 10:47 terazosin Allergy Unknown Verified 01/06/22 10:47 clarithromycin Allergy Verified 03/08/23 14:14 Review of Systems Review of Systems ROS Unobtainable: All systems reviewed & are unremarkable except as noted in HPI and below Constitutional Constitutional: Reports body ache(s), Denies chills, Reports fatigue, Denies fever(s) and Reports night sweats Eyes Eyes: Denies exophthalmos and Denies change in vision ENT Ears, Nose, Mouth, and Throat: Denies halitosis, Denies vertigo, Denies dizziness, Reports disequilibrium, Denies sinus pain and Denies sore throat Cardiovascular Cardiovascular: Denies chest pain, Denies irregular heart rhythm and Denies dyspnea Respiratory Respiratory: Denies chest congestion, Denies cough and Denies dyspnea Gastrointestinal Gastrointestinal: Denies dyspepsia and Denies nausea Comments: Decreased appetite. Genitourinary Genitourinary: Denies dysuria Musculoskeletal Musculoskeletal: Denies back pain and Denies loss of height Integumentary/Breasts Skin/Breast: Denies pruritus, Denies lesions and Denies wounds Neurologic Neurologic: Denies abnormal movements, Denies behavioral changes, Denies confusion, Denies vertigo, Denies dizziness and Reports disequilibrium Psychiatric Psychiatric: Denies anxiety, Denies behavioral changes and Denies confusion Endocrine Endocrine: Reports fatigue Hematologic/Lymphatic On Anticoagulants: No Patient History Medical History Obesity (BMI 35.0-39.9 without comorbidity) History of rectal bleeding Sleep apnea Peptic ulcer disease History of gastric ulcer Psoriasis CKD stage 3 secondary to diabetes Hypertension, essential Surgical History Hx of blepharoplasty History of umbilical hernia repair Family History Father Cirrhosis Mother Gallstones Social History household members: spouse Smoking Status: Never smoker Smoking Status: Never smoker alcohol intake frequency: holidays/special occasions only Substance Use Type: does not use Exam Initial Vital Signs Initial Vital Signs: Vital Signs Temperature 99 F 03/08/23 14:15 Pulse Rate 88 03/08/23 14:15 Respiratory Rate 18 03/08/23 14:15 Blood Pressure 116/67 03/08/23 14:15 Pulse Oximetry 99 03/08/23 14:15 Oxygen Delivery Method Room Air 03/08/23 14:15 Const General: cooperative, comfortable, well developed, well groomed and other (He indicates he does not feel well.) Nutritional Appearance: overweight HENMT Head: normal to inspection, normocephalic and atraumatic Face and sinus: normal facial exam and sinuses nontender Mouth: oral mucosae normal and lip normal Throat: posterior oropharynx normal Eyes General: Yes appearance normal, both eyes and all related structures Conjunctivae: conjunctivae normal Pupils: PERRL EOM: EOM intact bilaterally Neck Neck: normal visual inspection and No JVD Chest Chest: normal inspection of the chest Resp Effort & Inspection: normal respiratory effort Auscultation: clear to auscultation bilaterally Cardio Palpation: normal PMI Rate: regular rate Rhythm: regular rhythm and abnormal rhythm Heart Sounds: S1 normal, S2 normal and no murmurs GI Inspection: normal to inspection Palpation: soft and No tender Auscultation: normal bowel sounds Back/Spine/Pelvis Back: normal to inspection, No back tenderness and No CVA tenderness Thoracic/Lumbar Spine: thoracic and lumbar spine normal to inspection Skin General: no rashes or lesions noted Neuro General: patient alert, patient awake, patient oriented x3 and no focal motor deficits Extrem General: normal to inspection, no pedal edema and no calf tenderness Psych Mental Status: mental status grossly normal Scores qSOFA Altered Mental Status (GCS <15): No Respiratory rate greater than/equal to 22: No Systolic blood pressure less than or equal to 100: No qSOFA Total: 0 0-1 Not High Risk 1-3 High risk Course Orders Ordered: ED Orders 03/08/23 14:19 XR chest 1V Stat Measure peak expiratory flow ONCE RT Consult Eval and Treat NOW 03/08/23 14:35 EKG-12 Lead Stat 03/08/23 14:39 Complete Blood Count AUTO DIFF Stat Comprehensive Metabolic Panel Stat D Dimer Stat Lactate (Lactic Acid) Stat NT-proBNP (BNP-Adult 18+) Stat Prothrombin Time INR Stat Troponin I Stat 03/08/23 16:42 Blood Culture Stat 03/08/23 18:12 CT angio chest PE protocol Stat 03/08/23 20:20 Lactate (Lactic Acid) Stat Discontinued Medications Sodium Chloride (Normal Saline 0.9%) 1,000 mls @ 1,000 mls/hr IV BOLUS ONE Stop: 03/08/23 17:02 Last Infusion: 03/08/23 17:22 Dose: Infused Documented By: Admin: 03/08/23 16:11 Dose: 1,000 mls/hr Documented By: RB Sodium Chloride (Normal Saline 0.9%) 1,000 mls @ 1,000 mls/hr IV BOLUS ONE Stop: 03/08/23 19:13 Last Infusion: 03/08/23 20:26 Dose: Infused Documented By: Admin: 03/08/23 19:18 Dose: 1,000 mls/hr Documented By: Sodium Chloride (Normal Saline 0.9%) 1,000 mls @ 1,000 mls/hr IV BOLUS ONE Stop: 03/08/23 20:58 Vital Signs Vital signs: Vital Signs - 8 hr 03/08/23 14:15 03/08/23 15:57 03/08/23 15:59 Temperature 99 F 98.1 F Pulse Rate 88 82 79 Respiratory Rate 18 15 14 Blood Pressure 116/67 133/75 Pulse Oximetry 99 99 98 Oxygen Delivery Method Room Air Room Air 03/08/23 16:00 03/08/23 16:00 03/08/23 16:30 Temperature Pulse Rate 77 69 Respiratory Rate 10 L Blood Pressure 131/61 Pulse Oximetry 98 100 Oxygen Delivery Method 03/08/23 16:33 03/08/23 16:33 03/08/23 19:14 Temperature Pulse Rate 71 69 Respiratory Rate 12 Blood Pressure 120/59 L Pulse Oximetry 100 Oxygen Delivery Method 03/08/23 19:15 03/08/23 19:15 03/08/23 19:30 Temperature Pulse Rate 68 68 Respiratory Rate 18 14 Blood Pressure 136/65 Pulse Oximetry 98 99 Oxygen Delivery Method Room Air 03/08/23 19:30 03/08/23 20:00 03/08/23 20:00 Temperature Pulse Rate 69 Respiratory Rate 14 Blood Pressure 143/66 H 154/72 H Pulse Oximetry 99 Oxygen Delivery Method Room Air MDM - SOB/Dyspnea Lab Data 03/08/23 14:39 03/08/23 14:39 Labs: Lab Results 03/08/23 03/08/23 03/08/23 Range/Units 14:39 16:42 20:20 WBC 5.8 (4.5-11.0) X10^3/uL RBC 4.21 L (4.5-5.9) X10^6/uL Hgb 12.5 L (13.5-17.5) g/dL Hct 37.1 L (41-53) % MCV 88.1 (80-100) fL MCH 29.7 (26-34) PG MCHC 33.7 (30-36) % RDW 14.9 H (11.6-14.8) % Plt Count 225 (150-400) X10^3/uL Neut % (Auto) Not Reportable Lymph % (Auto) Not Reportable [place] % (Auto) Not Reportable Eos % (Auto) Not Reportable Baso % (Auto) Not Reportable Lymph # (Auto) Not Reportable [place] # (Auto) Not Reportable Baso # (Auto) Not Reportable Total Counted 100 Seg Neutrophils % 77.0 H (38-70) % Lymphocytes % (Manual) 8.0 L (25-45) % Monocytes % (Manual) 12.0 H (2-11) % Eosinophils % (Manual) 2.0 (2-4) % Basophils % (Manual) 1.0 (0-1) % Neutrophils # (Manual) 4466 (9852-3644) /uL RBC Morphology See below Anisocytosis 1+ H PT 11.8 (10.1-12.7) SECONDS INR 1.0 (0.9-1.3) D-Dimer 562 H (<500) ng/ml Sodium 136 L (137-145) mmol/L Potassium 3.6 (3.4-5.1) mmol/L Chloride 106 (98-107) mmol/L Carbon Dioxide 21 L (22-32) mmol/L BUN 32 H (9-20) mg/dL Creatinine 1.76 H (0.66-1.25) mg/dL Estimated GFR 39 L (>60) mL/min BUN/Creatinine Ratio 18.2 (6-22) Glucose 101 (80-110) mg/dL Lactate 2.8 H 3.2 H 2.3 H (0.7-2.1) mmol/L Calcium 9.2 (8.4-10.2) mg/dL Total Bilirubin 0.7 (0.2-1.3) mg/dL AST 47 (17-59) IU/L ALT 56 H (<50) IU/L Alkaline Phosphatase 78 (38-126) U/L Troponin I < 0.012 (0.01-0.034) ng/mL NT-Pro-B Natriuret Pep < 20 (<450) pg/mL Total Protein 7.2 (6.3-8.2) g/dL Albumin 4.1 (3.5-5.0) g/dL Globulin 3.1 (1.7-4.1) g/dL Albumin/Globulin Ratio 1.3 (1.0-2.8) Imaging Data CT scan - chest: My Impression: No acute cardiopulmonary process Radiologist's Impression: INDICATIONS: POSSIBLE PE TECHNIQUE: After the administration of intravenous contrast, 2 mm thick sections acquired from the pulmonary apices to the posterior costophrenic angles. 3-dimensional maximum intensity projection (MIP) coronal and sagittal reformats were then acquired through the thorax. For radiation dose reduction, the following was used: automated exposure control, adjustment of mA and/or kV according to patient size. COMPARISON: [facility], CR, XR CHEST 1V, 03/08/2023, 14:45. [facility], CT, CT CHEST ABD PEL W CON, 01/06/2022, 15:11. FINDINGS: Image quality: Excellent. Pulmonary arteries: Pulmonary arteries are normal in size, and demonstrate no intraluminal filling defects to suggest central pulmonary embolism. Lungs and pleura: Lungs are clear. No pleural effusions or pneumothorax. Central and peripheral airways are patent. Mediastinum: Heart size is mild enlarged, without pericardial effusion. Mild coronary artery calcifications. No mediastinal or hilar adenopathy. Thoracic aorta is normal in caliber and enhancement. Esophagus is normal in caliber, without hiatal hernia. Bones and chest wall: No suspicious bony lesions. Ribs and thoracic spine appear intact throughout. Right-sided thyroid nodule does not appear significantly changed in size when compared to the CT from 01/06/2022. No axillary or supraclavicular adenopathy. Abdomen: Fluid attenuation lesions in the left liver are most likely cysts. Visualized upper abdominal solid organs appear normal in the early arterial phase of enhancement. IMPRESSION: 1. No acute pulmonary embolus. No acute abnormality is identified in the chest. 2. Probable right-sided thyroid nodule. Consider outpatient thyroid ultrasound for further evaluation if not previously performed. Chest x-ray: Radiologist's Impression: No acute cardiopulmonary process ECG Data Attestation: I personally reviewed and interpreted this ECG as follows: (Normal sinus rhythm rate 73 beats per minute. Normal intervals. No ectopy. No acute ST T wave changes.) [facility] Narrative Medical decision making narrative: The patient presents primarily with weakness and fatigue. He is recently experienced COVID-19, he took a course of Paxlovid. He has no fever. Cardiopulmonary evaluation he is benign. CBC count is normal. He would a slight elevation in lactic acid. After 2 levels of IV fluids, lactic acid level is normalizing. He is dehydrated associated with his recent illness. He is feeling dramatically better prior to discharge. There is no suggestion of acute cardiopulmonary or neurologic disease. He is no significant infection. His resolving COVID-19 symptoms, seemingly dehydrated due to his actions during the slow recovery from the illness. Discharge Plan Departure Patient Disposition: Home Clinical Impression: COVID-19 long hauler manifesting chronic fatigue, Dehydration Activity Restrictions/Additional Instructions: You have no evidence of cardiac problems, ongoing respiratory problems, or infection. You appear to be dehydrated. I recommend regular walking, regular exercising. Maintain good hydration. You may take several days to weeks for symptoms to totally resolve. Plan to follow-up with your doctor the next 1-2 weeks. Prescriptions: No Action spironolactone 25 mg tablet 50 mg PO BEDTIME atorvastatin [Lipitor] 20 mg tablet 20 mg PO BEDTIME clobetasol 0.05 % ointment See Rx Instructions .ROUTE .COMPLEX PRN (Reason: Psoriasis) Rx Instructions: Apply to skin PRN for psoriasis losartan 25 mg tablet 25 mg PO DAILY febuxostat 40 mg tablet 40 mg PO DAILY sucralfate 1 gram tablet 1 g PO AC tamsulosin 0.4 mg capsule 0.4 mg PO ONCE PM aspirin 81 mg Tablet 81 mg PO DAILY Vitamin D3 2,000 units PO DAILY Mycelex 1 % topical PRN PRN (Reason: Rash) omeprazole 20 mg Tablet,Delayed Release (Dr/Ec) 20 mg PO DAILY famotidine 20 mg Tablet 20 mg PO BID colchicine (gout) 0.6 mg Tablet 0.6 mg PO PRN PRN (Reason: Gout) Rx Instructions: For gout attacks ranitidine HCl 150 mg Tablet 150 mg PO PRN PRN (Reason: Acid Reflux) cetirizine [Zyrtec] 10 mg Tablet 10 mg PO DAILY PRN (Reason: allergies) sucralfate [Carafate] 1 gram tablet 1 g PO QID Qty: 120 0RF Referrals: Serena Morley ARNP [Primary Care Provider] - Stand Alone Forms: Patient Portal/API
[2023-03-08 16:46] LABS: Reflexed Lactate in 2 Hours Y
[2023-03-08 17:05] LABS: Lactate 2HR (Lactic Acid Rflx) 3.2 mmol/L (0.7-2.1)
[2023-03-08 17:08] LABS: D Dimer 562 ng/ml (<500)
--- NOTE | 2023-03-08 18:12 | DI.CT.S_ITS ---
PROCEDURE: CT ANGIO CHEST PE PROTOCOL INDICATIONS: POSSIBLE PE TECHNIQUE: After the administration of intravenous contrast, 2 mm thick sections acquired from the pulmonary apices to the posterior costophrenic angles. 3-dimensional maximum intensity projection (MIP) coronal and sagittal reformats were then acquired through the thorax. For radiation dose reduction, the following was used: automated exposure control, adjustment of mA and/or kV according to patient size. COMPARISON: [facility], CR, XR CHEST 1V, 03/08/2023, 14:45. [facility], CT, CT CHEST ABD PEL W CON, 01/06/2022, 15:11. FINDINGS: Image quality: Excellent. Pulmonary arteries: Pulmonary arteries are normal in size, and demonstrate no intraluminal filling defects to suggest central pulmonary embolism. Lungs and pleura: Lungs are clear. No pleural effusions or pneumothorax. Central and peripheral airways are patent. Mediastinum: Heart size is mild enlarged, without pericardial effusion. Mild coronary artery calcifications. No mediastinal or hilar adenopathy. Thoracic aorta is normal in caliber and enhancement. Esophagus is normal in caliber, without hiatal hernia. Bones and chest wall: No suspicious bony lesions. Ribs and thoracic spine appear intact throughout. Right-sided thyroid nodule does not appear significantly changed in size when compared to the CT from 01/06/2022. No axillary or supraclavicular adenopathy. Abdomen: Fluid attenuation lesions in the left liver are most likely cysts. Visualized upper abdominal solid organs appear normal in the early arterial phase of enhancement. IMPRESSION: 1. No acute pulmonary embolus. No acute abnormality is identified in the chest. 2. Probable right-sided thyroid nodule. Consider outpatient thyroid ultrasound for further evaluation if not previously performed. Approved by: Joe Chaves M.D. on 03/08/2023 at 19:03
[2023-03-08 20:39] LABS: Lactate (Lactic Acid) 2.3 mmol/L (0.7-2.1)
[2023-03-08 22:26] LABS: Reflexed Lactate in 2 Hours Y
== END 2023-03-08 21:11 | disposition home or self-care (01) ==
PROVIDERS: Emergency Provider Emergency Medicine; PCP Nurse Practitioner Family
DX: G93.32 Myalgic encephalomyelitis/chronic fatigue syndrome (principal); E86.0 Dehydration; Z79.899 Other long term (current) drug therapy; Z86.16 Personal history of COVID-19
CPT/HCPCS: 36415; 71045; 71275; 80053; 83605; 83880; 84484; 85007; 85025; 85379; 85610; 87040; 93005; 96360; 96361; 99284; Q9967

== ENCOUNTER → 2023-03-24 06:46 | Outpatient (CLI) | payer MEDICARE, OTHER, SELFPAY ==
[2020-10-30 00:02] VITALS: BMI 36.3
[2023-03-24 07:59] LABS: Add Manual Diff / Slide Review NO; Basophils Absolute Auto 0 /uL (0-100); Basophils Percent Auto 0.5 % (0-2); Eosinophils Absolute Auto 100 /uL (0-450); Eosinophils Percent Auto 2.4 % (2-4); Hematocrit 36.6 % (41-53); Hemoglobin 12.2 g/dL (13.5-17.5); Lymphocytes Absolute Auto 700 /uL (1100-4500); Lymphocytes Percent Auto 11.5 % (25-40); Mean Corpuscular HGB Conc 33.4 % (30-36); Mean Corpuscular Hemoglobin 30.1 PG (26-34); Mean Corpuscular Volume 90.1 fL (80-100); Monocytes Absolute Auto 800 /uL (0-900); Monocytes Percent Auto 13.2 % (3-14); Neutrophils Absolute Auto 4300 /uL (1500-7000); Neutrophils Percent Auto 72.4 % (50-75); Platelet Count 175 X10^3/uL (150-400); Red Blood Cell Count 4.06 X10^6/uL (4.5-5.9); Red Cell Distribution Width 15.3 % (11.6-14.8)
[2023-03-24 08:22] LABS: BUN Creatinine Ratio 17.1 (6-22); Blood Urea Nitrogen 29 mg/dL (9-20); Calcium 9.3 mg/dL (8.4-10.2); Carbon Dioxide 17 mmol/L (22-32); Chloride 105 mmol/L (98-107); Cholesterol 114 mg/dL (140-199); Estimated Glomerular Filt Rate 41 mL/min (>60); Glucose 125 mg/dL (80-110); HDL Cholesterol 34 mg/dL (40-60); HEMOLYSIS < 15 (0-50); LDL Cholesterol Calculated 46 mg/dL (<100); Sodium 137 mmol/L (137-145); Triglycerides 170 mg/dL (35-150)
[2023-03-24 08:44] LABS: Hemoglobin A1C% w Est Avg Glu 6.7 % (4.0-6.0)
== END ==
PROVIDERS: PCP Nurse Practitioner Family; Referring Provider Internal Medicine Cardiovascular Disease; Visit Provider Internal Medicine Cardiovascular Disease
DX: I10 Essential (primary) hypertension (principal); E11.9 Type 2 diabetes mellitus without complications; E78.5 Hyperlipidemia, unspecified
CPT/HCPCS: 36415; 80048; 80061; 83036; 85025

== ENCOUNTER → 2023-03-31 10:40 | Outpatient (CLI) | payer MEDICARE, OTHER, SELFPAY ==
[2020-10-30 00:02] VITALS: BMI 36.3
--- NOTE | 2023-03-31 | DI.US.S_ITS ---
PROCEDURE: US RENAL COMPLETE INDICATIONS: KIDNEY DISEASE TECHNIQUE: Real-time scanning was performed of the kidneys and bladder, with image documentation. COMPARISON: [facility], CT, CT CHEST ABD PEL W CON, 01/06/2022, 15:11. FINDINGS: Kidneys: Kidneys are normal in size. Right kidney measures 8.7 cm long; left kidney measures 9.7 cm long. Right renal cortical thickness is 2.4 cm; left renal cortical thickness is 1.6 cm. Renal cortical echotexture is normal. There are a few small echogenic foci throughout the right renal pelvis measuring up to 5 millimeters, may represent stones. No hydronephrosis. No suspicious solid mass lesions. Bladder: Pre-void bladder volume is 64 mL. Post-void residual is 0 mL. Pre-void images demonstrate no intraluminal masses or stones. Ureteral jets are not seen. (Of note, ureteral jets may not be detectable in up to 25% of cases due to insufficient differences in specific gravity between ureteral and bladder urine). Miscellaneous: No free pelvic fluid. IMPRESSION: Possible small nonobstructing stones within the right kidney. No hydronephrosis. Remainder of the exam is within normal limits. Dictated by: Loyd Akins M.D. on 03/31/2023 at 11:32 Approved by: Loyd Akins M.D. on 03/31/2023 at 11:35
== END ==
PROVIDERS: PCP Nurse Practitioner Family; Referring Provider Internal Medicine Nephrology; Visit Provider Internal Medicine Nephrology
DX: N18.32 Chronic kidney disease, stage 3b (principal)
CPT/HCPCS: 76770

== ENCOUNTER → 2023-04-10 | Outpatient (CLI) | payer MEDICARE, OTHER, SELFPAY ==
[2020-10-30 00:02] VITALS: BMI 36.3
--- NOTE | 2023-04-10 09:53 | DI.ECHO.S_ITS ---
[place] [facility]---------+ [facility] +---------+ : : [address] : : : : [id number] : : : : Phone: [phone]+ Echocardiogram Report + + :Name: ORLANDO TAYLOR Study Date: 04/10/2023 Height: 64 in : :[facility] ReadingLocation: Weight: 214 lb : : Gender: Male BSA: 2.0 m2 : :: 1945 Age: 78 yrs BP: 127/74 mmHg: :Reason For Study: PERICARDIAL EFFUSION : :Ordering Physician: YAMIL, : :ANGELICA Performed By: Gwendolyn Valerio : :Referring: ANGELICA NOLASCO : + + Interpretation Summary 1) Normal left ventricular thickness, size, wall motion, and systolic function (EF 60-65%). 2) Normal right ventricular size and function. 3) No significant valvular abnormalities. 4) There is no pericardial effusion. 5) Compared to the Echo done 01/17/2023, no pericardial effusion is present on this study. Procedure: A two-dimensional transthoracic echocardiogram with color flow and Doppler was performed. The study quality was technically adequate. Comparison is made with the echocardiogram of 01/17/2023. The patient was in sinus rhythm with heart rates between 63-77 bpm during the exam. Left Ventricle: The left ventricle is normal in size and wall thickness. The ejection fraction is estimated to be 60-65%. Left ventricular systolic function appears normal without focal wall motion abnormalities. Right Ventricle: The right ventricle grossly appears normal in size with probable normal systolic function. Atria: The left atrial size is normal. Right atrial size is normal. There is no Doppler evidence for an interatrial shunt. Mitral Valve: The mitral valve is normal in structure and function. There is trace mitral regurgitation. Aortic Valve: The aortic valve is trileaflet. The aortic valve opens well. There is no aortic valve stenosis. There is trace aortic regurgitation. Tricuspid Valve: The tricuspid valve is normal in structure and function. There is trace tricuspid regurgitation. Pulmonary artery pressures cannot be estimated because of the lack of a measurable TR jet velocity. Pulmonic Valve: The pulmonic valve leaflets are thin and pliable; valve motion is normal. There is no pulmonic valvular regurgitation. Great Vessels: The aortic root is normal size. The dimensions of the ascending aorta are normal. The inferior vena cava was not well visualized. Pericardium/ Pleura There is no pericardial effusion. There is no pleural effusion. MMode/2D Measurements & Calculations LVIDd: 4.8 cm LVOT diam: 2.4 cm LVIDs: 3.5 cm Ao root diam: 3.6 cm FS: 27.6 % asc Aorta Diam: 3.6 cm IVSd: 0.88 cm LVPWd: 1.2 cm LV ojeda. diameter/BSA (cm/m^2): 2.4 LV sys. diameter/BSA (cm/m^2): 1.7 LA A2 area: 18.5 cm2 RA long axis: 4.7 cm LA A4 area: 15.3 cm2 RA area: 12.4 cm2 LA length (vol): 4.7 cm RA vol: 27.9 ml LA vol: 51.2 ml RA : 13.9 ml/m2 LA vol index: 25.5 ml/m2 RVD1 (basal): 3.9 cm RVD2 (mid): 3.5 cm TAPSE: 1.6 cm Doppler Measurements & Calculations Ao V2 max: 128.4 cm/sec LVOT Max Moi: 80.2 cm/sec Ao V2 mean: 94.1 cm/sec LV V1 max P.6 mmHg Ao max P.6 mmHg LV V1 VTI: 16.5 cm Ao mean P.8 mmHg DAV(I,D): 2.9 cm2 Ao V2 VTI: 24.7 cm DAV(V,D): 2.7 cm2 sev ratio: 0.67 DAV indexed to BSA (cm^2/m^2): 1.5 MV E max moi: 59.5 cm/sec PA V2 max: 89.5 cm/sec MV A max moi: 88.4 cm/sec PA V2 mean: 66.9 cm/sec MV E/A: 0.67 PA mean P.9 mmHg Med Peak E' Moi: 4.7 cm/sec PA pr(Accel): 44.7 mmHg E/E' med: 12.5 Lat Peak E' Moi: 6.2 cm/sec E/E' lat: 9.6 E/e' average: 11.1 MV dec time: 0.30 sec SV([facility]): 72.3 ml Reading Physician:02:35 PM
== END ==
LOC: ECHO 09:14
PROVIDERS: PCP Nurse Practitioner Family; Referring Provider Internal Medicine Cardiovascular Disease; Visit Provider Internal Medicine Cardiovascular Disease
DX: I31.39 Other pericardial effusion (noninflammatory) (principal)
CPT/HCPCS: 93306

== ENCOUNTER 2023-05-21 11:30 | Emergency (ER) | payer MEDICARE, OTHER, SELFPAY ==
[2020-10-30 00:02] VITALS: BMI 36.3
[2023-05-21] VITALS (14 sets, daily range): BP systolic 144–174; BP diastolic 67–91; PULSE 69–96; RESP 12–24; TEMP 37.2; O2SAT 94–99; BMI 38.4
--- NOTE | 2023-05-21 11:33 | DI.RAD.S_ITS ---
PROCEDURE: XR CHEST 1V INDICATIONS: chest pain TECHNIQUE: One view of the chest was acquired. COMPARISON: [facility], CR, XR CHEST 1V, 03/08/2023, 14:45. FINDINGS: Surgical changes and devices: None. Lungs and pleura: Lungs are clear. No pleural effusions or pneumothorax. Mediastinum: Mediastinal contours appear normal. Heart size is normal. Bones and chest wall: No suspicious bony lesions. Overlying soft tissues appear unremarkable. IMPRESSION: No acute cardiopulmonary abnormality is seen. Dictated by: Juliana Cedeño M.D. on 05/21/2023 at 12:38 Approved by: Juliana Cedeño M.D. on 05/21/2023 at 12:38
[2023-05-21 11:50] LABS: Add Manual Diff / Slide Review NO; Basophils Absolute Auto 0 /uL (0-100); Basophils Percent Auto 0.2 % (0-2); Eosinophils Absolute Auto 100 /uL (0-450); Eosinophils Percent Auto 1.9 % (2-4); Hematocrit 38.7 % (41-53); Hemoglobin 12.9 g/dL (13.5-17.5); Lymphocytes Absolute Auto 600 /uL (1100-4500); Lymphocytes Percent Auto 8.8 % (25-40); Mean Corpuscular HGB Conc 33.3 % (30-36); Mean Corpuscular Hemoglobin 29.6 PG (26-34); Mean Corpuscular Volume 88.8 fL (80-100); Monocytes Absolute Auto 600 /uL (0-900); Monocytes Percent Auto 8.2 % (3-14); Neutrophils Absolute Auto 5800 /uL (1500-7000); Neutrophils Percent Auto 80.9 % (50-75); Platelet Count 161 X10^3/uL (150-400); Red Blood Cell Count 4.36 X10^6/uL (4.5-5.9); Red Cell Distribution Width 14.9 % (11.6-14.8); White Blood Cell Count 7.2 X10^3/uL (4.5-11.0)
[2023-05-21 11:59] LABS: Prothrombin Time 11.1 SECONDS (9.4-12.5)
[2023-05-21 12:01] LABS: PTT Partial Thromboplastin Tim 26 SECONDS (25.1-36.5)
--- NOTE | 2023-05-21 12:02 | PC.NURSE ---
Pt was seen at [facility] yesterday. Pt states at home he has felt like he cant catch his breathe occasionally. He reports increased weakness and SOB with exhertion. Pt takes metoprolol, furosemide, losartan, denies CHF. He reports multiple echocardiograms this year but states they are just because his doctor referred him.
[2023-05-21 12:03] LABS: Alanine Aminotransferase 31 IU/L (<50); Albumin 3.9 g/dL (3.5-5.0); Albumin Globulin Ratio 1.3 (1.0-2.8); Alkaline Phosphatase 78 U/L (38-126); Aspartate Aminotransferase 30 IU/L (17-59); BUN Creatinine Ratio 13.8 (6-22); Bilirubin Total 0.7 mg/dL (0.2-1.3); Blood Urea Nitrogen 19 mg/dL (9-20); Calcium 8.7 mg/dL (8.4-10.2); Carbon Dioxide 19 mmol/L (22-32); Chloride 109 mmol/L (98-107); Creatine Kinase 110 U/L (55-170); Estimated Glomerular Filt Rate 52 mL/min (>60); Globulin 2.9 g/dL (1.7-4.1); Glucose 149 mg/dL (80-110); HEMOLYSIS < 15 (0-50); Lipase 230 U/L (23-300); Magnesium 1.7 mg/dL (1.6-2.3); Potassium 3.8 mmol/L (3.4-5.1); Sodium 138 mmol/L (137-145); Total Protein 6.8 g/dL (6.3-8.2)
[2023-05-21 12:14] LABS: Troponin I < 0.012 ng/mL (0.01-0.034)
--- NOTE | 2023-05-21 12:14 | ED_ITS ---
HPI - Chest Pain General Chief Complaint: Chest Pain Stated Complaint: thightness on chest, sob Time Seen by Provider: 05/21/23 11:43 Source: patient Mode of arrival: Family Vehicle Limitations: no limitations History of Present Illness HPI narrative: Patient is a 78-year-old male history of chronic kidney disease hypertension hyperlipidemia presents today with increasing shortness of breath. He was seen evaluated at would be general this morning at 1:00 a.m. for something similar. He reports that he felt this way when he had COVID. He got in his car to drive in his chest got very tight and he could not take any sort of deep breath. He is not had any fever chills or productive cough. Although he has had a nonproductive cough and some nasal congestion. Records have been received and reviewed he would a full respiratory panel which was negative x-ray and blood work and ultimately discharged home. But he still did not feel like he could take a deep breath. Related Data Home Medications Medication Instructions Recorded Confirmed Mycelex 1 % topical PRN PRN Rash 10/30/20 10/30/20 Vitamin D3 2,000 units PO DAILY 10/30/20 05/21/23 aspirin 81 mg tablet 81 mg PO DAILY 10/30/20 05/21/23 atorvastatin 20 mg tablet (Lipitor) 40 mg PO BEDTIME 10/30/20 05/21/23 cetirizine 10 mg tablet (Zyrtec) 10 mg PO DAILY PRN allergies 10/30/20 10/30/20 clobetasol 0.05 % topical ointment See Rx Instructions .Route 10/30/20 10/30/20 .COMPLEX PRN Psoriasis colchicine 0.6 mg tablet 0.6 mg PO PRN PRN Gout 10/30/20 10/30/20 famotidine 20 mg tablet 20 mg PO BID 10/30/20 10/30/20 febuxostat 40 mg tablet 40 mg PO DAILY 10/30/20 10/30/20 losartan 25 mg tablet 25 mg PO DAILY 10/30/20 05/21/23 omeprazole 20 mg tablet,delayed 20 mg PO DAILY 10/30/20 10/30/20 release ranitidine HCl 150 mg tablet 150 mg PO PRN PRN Acid Reflux 10/30/20 10/30/20 spironolactone 50 mg PO BEDTIME 10/30/20 10/30/20 sucralfate 1 gram tablet 1 g PO AC 10/30/20 10/30/20 tamsulosin 0.4 mg capsule 0.4 mg PO BID 10/30/20 05/21/23 famotidine 20 mg tablet 20 mg PO DAILY 05/21/23 05/21/23 magnesium 100 mg tablet 143 mg PO BID 05/21/23 05/21/23 metoprolol succinate 25 mg 12.5 mg PO BID 05/21/23 05/21/23 tablet,extended release 24 hr Previous Rx's Medication Instructions Recorded sucralfate 1 gram tablet (Carafate) 1 g PO QID #120 tabs 12/21/20 albuterol sulfate 90 mcg/actuation 2 puff inhalation Q4-6H PRN 05/21/23 aerosol inhaler shortness of breath or wheezing #8.5 grams Allergies Allergy/AdvReac Type Severity Reaction Status Date / Time felodipine Allergy Unknown Verified 01/06/22 10:47 lisinopril Allergy Unknown Verified 01/06/22 10:47 terazosin Allergy Unknown Verified 01/06/22 10:47 clarithromycin Allergy Verified 03/08/23 14:14 Patient History Medical History Obesity (BMI 35.0-39.9 without comorbidity) History of rectal bleeding Sleep apnea Peptic ulcer disease History of gastric ulcer Psoriasis CKD stage 3 secondary to diabetes Hypertension, essential Surgical History Hx of blepharoplasty History of umbilical hernia repair Family History Father Cirrhosis Mother Gallstones Social History household members: spouse Smoking Status: Never smoker Smoking Status: Never smoker alcohol intake frequency: holidays/special occasions only Substance Use Type: does not use Exam Initial Vital Signs Initial Vital Signs: Vital Signs Pulse Rate 92 H 05/21/23 11:38 Pulse Oximetry 97 05/21/23 11:38 GENERAL: Alert pleasant 78-year-old male and in no acute distress. HEENT: Head atraumatic,EOMI, pupils reactive, face symmetric, moist mucous membranes CARDIOVASCULAR: Regular rate and rhythm without murmurs, rubs or gallops. RESPIRATORY: Slightly decreased breath sounds bilaterally no wheezes or rales. Speaks in full sentences ABDOMEN: Soft, nontender. Normoactive bowel sounds all 4 quadrants. No guarding or rebound. EXTREMITIES: Normal range of motion, no clubbing or edema. Neurovascularly intact NEUROLOGICAL: Alert and oriented x4.Normal gait and speech. Cranial nerves II through XII grossly intact. SKIN: Warm, dry, no laceration, no petechiae, no rashes or lesions. Course Orders Ordered: ED Orders 05/21/23 11:33 XR chest 1V Stat EKG-12 Lead Stat 05/21/23 11:42 BNP [NT-proBNP (BNP-Adult 18+)] Stat Complete Blood Count AUTO DIFF Stat Comprehensive Metabolic Panel Stat D Dimer Stat Lipase Stat Magnesium Stat PTT Partial Thromboplastin Andres Stat Prothrombin Time INR Stat Troponin & CK Cardiac Panel Stat 05/21/23 13:01 CT angio chest PE protocol Stat Discontinued Medications Albuterol (Albuterol Hfa Prepack) 1 box MISC DIRECTED ONE Stop: 05/21/23 14:27 Last Admin: 05/21/23 15:29 Dose: 1 box Documented By: ELY Albuterol/Ipratropium (Albuterol/Ipratropium 3 Ml Ampul) 3 ml INH NOW ONE Stop: 05/21/23 13:05 Last Admin: 05/21/23 13:33 Dose: 3 ml Documented By: VIR[place] Aspirin (Aspirin 81 Mg Chew Tab) 324 mg PO NOW ONE Stop: 05/21/23 11:34 Last Admin: 05/21/23 11:45 Dose: Not Given Documented By: ELY Sodium Chloride (Normal Saline 0.9%) 1,000 mls @ 1,000 mls/hr IV BOLUS ONE Stop: 05/21/23 15:09 Last Infusion: 05/21/23 15:30 Dose: Infused Documented By: Admin: 05/21/23 14:38 Dose: 1,000 mls/hr Documented By: ELY Vital Signs Vital signs: Vital Signs - 8 hr 05/21/23 11:38 05/21/23 11:39 05/21/23 11:39 Temperature Pulse Rate 92 H 94 H Respiratory Rate 14 Blood Pressure 174/91 H Pulse Oximetry 97 98 Oxygen Delivery Method Room Air Oxygen Flow Rate Fraction of Inspired Oxygen 05/21/23 11:42 05/21/23 12:00 05/21/23 12:01 Temperature 99.0 F Pulse Rate 96 H 77 78 Respiratory Rate 20 12 13 Blood Pressure 174/91 H Pulse Oximetry 97 99 97 Oxygen Delivery Method Room Air Oxygen Flow Rate Fraction of Inspired Oxygen 05/21/23 12:01 05/21/23 12:30 05/21/23 12:30 Temperature Pulse Rate 69 Respiratory Rate 12 Blood Pressure 158/69 H 144/67 H Pulse Oximetry 94 Oxygen Delivery Method Room Air Oxygen Flow Rate Fraction of Inspired Oxygen 05/21/23 13:00 05/21/23 13:00 05/21/23 13:30 Temperature Pulse Rate 70 73 Respiratory Rate 12 18 Blood Pressure 151/70 H Pulse Oximetry 98 97 Oxygen Delivery Method Room Air Oxygen Flow Rate Fraction of Inspired Oxygen 05/21/23 13:34 05/21/23 14:00 05/21/23 14:30 Temperature Pulse Rate 72 83 81 Respiratory Rate 18 14 24 Blood Pressure Pulse Oximetry 96 98 98 Oxygen Delivery Method Room Air Room Air Room Air Oxygen Flow Rate 0 Fraction of Inspired Oxygen 21 05/21/23 14:43 05/21/23 14:43 05/21/23 15:00 Temperature Pulse Rate 72 79 Respiratory Rate 20 22 Blood Pressure 167/77 H Pulse Oximetry 98 98 Oxygen Delivery Method Room Air Oxygen Flow Rate Fraction of Inspired Oxygen 05/21/23 15:00 05/21/23 15:30 Temperature Pulse Rate 76 Respiratory Rate 13 Blood Pressure 166/75 H Pulse Oximetry 99 Oxygen Delivery Method Oxygen Flow Rate Fraction of Inspired Oxygen MDM - Chest Pain Lab Data 05/21/23 11:42 05/21/23 11:42 Labs: Lab Results 05/21/23 Range/Units 11:42 WBC 7.2 (4.5-11.0) X10^3/uL RBC 4.36 L (4.5-5.9) X10^6/uL Hgb 12.9 L (13.5-17.5) g/dL Hct 38.7 L (41-53) % MCV 88.8 (80-100) fL MCH 29.6 (26-34) PG MCHC 33.3 (30-36) % RDW 14.9 H (11.6-14.8) % Plt Count 161 (150-400) X10^3/uL Neut % (Auto) 80.9 H (50-75) % Lymph % (Auto) 8.8 L (25-40) % [place] % (Auto) 8.2 (3-14) % Eos % (Auto) 1.9 L (2-4) % Baso % (Auto) 0.2 (0-2) % Neut # (Auto) 5800 (0984-5913) /uL Lymph # (Auto) 600 L (4694-3091) /uL [place] # (Auto) 600 (0-900) /uL Eos # (Auto) 100 (0-450) /uL Baso # (Auto) 0 (0-100) /uL PT 11.1 (9.4-12.5) SECONDS INR 1.0 (0.9-1.3) APTT 26 (25.1-36.5) SECONDS D-Dimer 846 H (<500) ng/ml Sodium 138 (137-145) mmol/L Potassium 3.8 (3.4-5.1) mmol/L Chloride 109 H (98-107) mmol/L Carbon Dioxide 19 L (22-32) mmol/L BUN 19 (9-20) mg/dL Creatinine 1.38 H (0.66-1.25) mg/dL Estimated GFR 52 L (>60) mL/min BUN/Creatinine Ratio 13.8 (6-22) Glucose 149 H (80-110) mg/dL Calcium 8.7 (8.4-10.2) mg/dL Magnesium 1.7 (1.6-2.3) mg/dL Total Bilirubin 0.7 (0.2-1.3) mg/dL AST 30 (17-59) IU/L ALT 31 (<50) IU/L Alkaline Phosphatase 78 (38-126) U/L Total Creatine Kinase 110 (55-170) U/L Troponin I < 0.012 (0.01-0.034) ng/mL NT-Pro-B Natriuret Pep 150 (<450) pg/mL Total Protein 6.8 (6.3-8.2) g/dL Albumin 3.9 (3.5-5.0) g/dL Globulin 2.9 (1.7-4.1) g/dL Albumin/Globulin Ratio 1.3 (1.0-2.8) Lipase 230 (23-300) U/L Imaging Data CT scan - chest: Radiologist's Impression: PROCEDURE: CT ANGIO CHEST PE PROTOCOL INDICATIONS: short of breath, elevated dimer TECHNIQUE: After the administration of intravenous contrast, 2 mm thick sections acquired from the pulmonary apices to the posterior costophrenic angles. 3-dimensional maximum intensity projection (MIP) coronal and sagittal reformats were then acquired through the thorax. For radiation dose reduction, the following was used: automated exposure control, adjustment of mA and/or kV according to patient size. COMPARISON: [facility], CT, CT CHEST ABD PEL W CON, 01/06/2022, 15:11. [facility], CT, CT ANGIO CHEST PE PROTOCOL, 03/08/2023, 18:18. [facility], CR, XR CHEST 1V, 05/21/2023, 11:39. FINDINGS: Image quality: Diagnostic. Pulmonary arteries: Pulmonary arteries are normal in size, and demonstrate no intraluminal filling defects to suggest central pulmonary embolism. Lungs and pleura: Lungs are clear. No pleural effusions or pneumothorax. Central and peripheral airways are patent. Mediastinum: Heart size is normal, without pericardial effusion. No mediastinal or hilar adenopathy. Thoracic aorta is normal in caliber and enhancement. Esophagus is normal in caliber, without hiatal hernia. Bones and chest wall: No suspicious bony lesions. Ribs and thoracic spine appear intact throughout. Age-appropriate bony degenerative changes are seen. No axillary or supraclavicular adenopathy. Generalized prominence of the right thyroid can be seen, without a focal nodule identified on these images. Upper Abdomen: Water density left liver cysts can be seen. The visualized portions of the upper abdominal structures are otherwise unremarkable for imaging technique. IMPRESSION: No pulmonary embolus. No acute cardiopulmonary process. Additional findings: Generalized prominence of the right thyroid, without a focal nodule Stable water density left liver cysts. Dictated by: Micah Conway M.D. on 05/21/2023 at 12:51 Chest x-ray: Radiologist's Impression: PROCEDURE: XR CHEST 1V INDICATIONS: chest pain TECHNIQUE: One view of the chest was acquired. COMPARISON: [facility], CR, XR CHEST 1V, 03/08/2023, 14:45. FINDINGS: Surgical changes and devices: None. Lungs and pleura: Lungs are clear. No pleural effusions or pneumothorax. Mediastinum: Mediastinal contours appear normal. Heart size is normal. Bones and chest wall: No suspicious bony lesions. Overlying soft tissues appear unremarkable. IMPRESSION: No acute cardiopulmonary abnormality is seen. Dictated by: Juliana Cedeño M.D. on 05/21/2023 at 12:38 ECG Data Interpretation: EKG 1. Sinus rhythm rate 82 IA interval 200 QRS 70 QTC 425 PVCs noted artifact noted no obvious ST changes no priors to compare EKG 2. Less artifact sinus rhythm rate 85 IA interval 190 QRS 78 QTC [address] elevation depression or T-wave inversions MDM Narrative Medical decision making narrative: Patient 78-year-old male presents today for 2nd ED visit in less than 4 hours for chest discomfort. He has now had multiple negative troponins he describes it as chest tightness and wheezing with difficulty breathing. No fever or chills. He previously had COVID. He is worried that it might be back. His viral panel is negative. Blood work has been reviewed overall reassuring slightly elevated D-dimer 846, bicarb is 19 it previously was 17 records from [facility] earlier today show that his bicarb 17. He has no evidence DKA he is given 1 L of fluid. Kidney disease remained stable he is got a crit need of 1.38 previously 1.4 ([facility]) Imaging chest x-ray negative CT angio no pulmonary embolism Patient is given albuterol treatment which helped some instantaneously. Reports that he feels significantly better. At this time I do suspect that he likely had some sort of viral illness. No need for antibiotics. He is given albuterol inhaler with spacer and instructions. Does not need steroids at time. #65: Appropriate Treatment for Patients with URI X The patient was diagnosed with upper respiratory infection and was not prescribed or dispensed an antibiotic. [SATISFIES MIPS PERFORMANCE] [] The patient has competing comorbid condition within the last 12 months. The comorbid condition was [] (e.g., neutropenia, cystic fibrosis, chronic bronchitis, pulmonary edema, respiratory failure, rheumatoid lung disease). [MIPS PERFORMANCE EXCEPTION/EXCLUSION] [] The patient is already on antibiotics, or has taken them within the last 30 days. [MIPS PERFORMANCE EXCEPTION/EXCLUSION] [] The patient had a competing diagnosis of [] (e.g. acute otitis media, chronic sinusitis, cellulitis, UTI, etc.). [[facility] PERFORMANCE EXCEPTION/EXCLUSION] [] The patient was diagnosed with upper respiratory infection and was prescribed or dispensed an antibiotic. [DOES NOT SATISFY [facility] PERFORMANCE] Discharge Plan Departure Patient Disposition: Home Clinical Impression: Mild reactive airways disease Instructions: DI for Reactive Airway Disease-Adult Activity Restrictions/Additional Instructions: *You have been diagnosed with reactive airway *What to do: At this time you likely a viral illness causing your airways to tighten. No antibiotics *Continue to take medications as directed Albuterol 1-2 puffs with inhaler every 4 hours if needed --> SENT TO [facility] *Follow up with your primary care provider in 2-3 days or call [phone] *Return to ER if you should have increasing chest pain shortness of breath or any new, worsening or concerning symptoms Prescriptions: New albuterol sulfate 90 mcg/actuation HFA aerosol inhaler 2 puff INHALATION Q4-6H PRN (Reason: shortness of breath or wheezing) Qty: 8.5 0RF No Action spironolactone 25 mg tablet 50 mg PO BEDTIME atorvastatin [Lipitor] 20 mg tablet 40 mg PO BEDTIME clobetasol 0.05 % ointment See Rx Instructions .ROUTE .COMPLEX PRN (Reason: Psoriasis) Rx Instructions: Apply to skin PRN for psoriasis losartan 25 mg tablet 25 mg PO DAILY febuxostat 40 mg tablet 40 mg PO DAILY sucralfate 1 gram tablet 1 g PO AC tamsulosin 0.4 mg capsule 0.4 mg PO BID aspirin 81 mg Tablet 81 mg PO DAILY Vitamin D3 2,000 units PO DAILY Mycelex 1 % topical PRN PRN (Reason: Rash) omeprazole 20 mg Tablet,Delayed Release (Dr/Ec) 20 mg PO DAILY famotidine 20 mg Tablet 20 mg PO BID colchicine 0.6 mg Tablet 0.6 mg PO PRN PRN (Reason: Gout) Rx Instructions: For gout attacks ranitidine HCl 150 mg Tablet 150 mg PO PRN PRN (Reason: Acid Reflux) cetirizine [Zyrtec] 10 mg Tablet 10 mg PO DAILY PRN (Reason: allergies) metoprolol succinate 25 mg tablet extended release 24 hr 12.5 mg PO BID magnesium 100 mg Tablet 143 mg PO BID Rx Instructions: Pt takes 143mg tabs famotidine 20 mg tablet 20 mg PO DAILY sucralfate [Carafate] 1 gram tablet 1 g PO QID Qty: 120 0RF Referrals: Serena Morley ARNP [Primary Care Provider] - Stand Alone Forms: Patient Portal/API
[2023-05-21 12:19] LABS: D Dimer 846 ng/ml (<500)
[2023-05-21 12:31] LABS: NT-proBNP (BNP-Adult 18+) 150 pg/mL (<450)
--- NOTE | 2023-05-21 13:01 | DI.CT.S_ITS ---
PROCEDURE: CT ANGIO CHEST PE PROTOCOL INDICATIONS: short of breath, elevated dimer TECHNIQUE: After the administration of intravenous contrast, 2 mm thick sections acquired from the pulmonary apices to the posterior costophrenic angles. 3-dimensional maximum intensity projection (MIP) coronal and sagittal reformats were then acquired through the thorax. For radiation dose reduction, the following was used: automated exposure control, adjustment of mA and/or kV according to patient size. COMPARISON: [facility], CT, CT CHEST ABD PEL W CON, 01/06/2022, 15:11. [facility], CT, CT ANGIO CHEST PE PROTOCOL, 03/08/2023, 18:18. [facility], CR, XR CHEST 1V, 05/21/2023, 11:39. FINDINGS: Image quality: Diagnostic. Pulmonary arteries: Pulmonary arteries are normal in size, and demonstrate no intraluminal filling defects to suggest central pulmonary embolism. Lungs and pleura: Lungs are clear. No pleural effusions or pneumothorax. Central and peripheral airways are patent. Mediastinum: Heart size is normal, without pericardial effusion. No mediastinal or hilar adenopathy. Thoracic aorta is normal in caliber and enhancement. Esophagus is normal in caliber, without hiatal hernia. Bones and chest wall: No suspicious bony lesions. Ribs and thoracic spine appear intact throughout. Age-appropriate bony degenerative changes are seen. No axillary or supraclavicular adenopathy. Generalized prominence of the right thyroid can be seen, without a focal nodule identified on these images. Upper Abdomen: Water density left liver cysts can be seen. The visualized portions of the upper abdominal structures are otherwise unremarkable for imaging technique. IMPRESSION: No pulmonary embolus. No acute cardiopulmonary process. Additional findings: Generalized prominence of the right thyroid, without a focal nodule Stable water density left liver cysts. Dictated by: Micah Conway M.D. on 05/21/2023 at 12:51 Approved by: Micah Conway M.D. on 05/21/2023 at 12:55
[2023-05-21] MEDS: ALBUTEROL/IPRATROPIUM 3 ML AMPUL INH (13:33)
[2023-05-21] MEDS: SODIUM CHLORIDE 0.9% 1,000 ML 1000 ML IV (14:38)
[2023-05-21] MEDS: ALBUTEROL HFA PREPACK 1 BOX MISC (15:29)
== END 2023-05-21 15:38 | disposition home or self-care (01) ==
PROVIDERS: Emergency Provider Emergency Medicine; PCP Nurse Practitioner Family
DX: J45.909 Unspecified asthma, uncomplicated (principal); R07.9 Chest pain, unspecified; Z86.16 Personal history of COVID-19; Z79.899 Other long term (current) drug therapy
CPT/HCPCS: 36415; 71045; 71275; 80053; 82550; 83690; 83735; 83880; 84484; 85025; 85379; 85610; 85730; 93005; 93010; 94640; 96360; 99284; Q9967

== ENCOUNTER → 2023-09-27 09:19 | Outpatient (CLI) | payer MEDICARE, OTHER, SELFPAY ==
[2020-10-30 00:02] VITALS: BMI 36.3
--- NOTE | 2023-09-27 09:21 | DI.RAD.S_ITS ---
PROCEDURE: FL BARIUM SWALLOW W SPEECH INDICATIONS: Epigastric pain COMPARISON: TECHNIQUE: Examination was conducted in conjunction with speech pathology per standard protocol. In the lateral projection, filming was performed of the patient swallowing. AP projection filming may also be performed with patient swallowing. COMPARISON: [facility], CT, CT ANGIO CHEST PE PROTOCOL, 05/21/2023, 13:09. FINDINGS: Function: The oral preparatory phase appears normal, with proper containment. The subsequent oral propulsive phase, pharyngeal phase, and esophageal phase of swallowing also appear normal with all proffered substances. No laryngotracheal penetration or aspiration. No mild vallecular pooling. The esophagus is patulous. There is narrowing of the distal esophagus. There is retention of barium in the esophagus which clears with subsequent water boluses. There is retention of the barium tablet at the gastroesophageal junction. Morphology: No cricopharyngeal bar is identified. No cervical esophageal webs. No Zenker's diverticulum. No strictures. IMPRESSION: No aspiration. Narrowing at the distal esophagus. The barium tablet did not pass into the stomach for greater than 1 minutes. Retention of barium in the esophagus. Findings most consistent with distal esophageal stricture or achalasia. Please see separately dictated speech pathologist's report. Dictated by: Chuy Daniel M.D. on 09/27/2023 at 12:07 Approved by: Chuy Daniel M.D. on 09/27/2023 at 12:12
--- NOTE | 2023-09-27 15:37 | ST.SWALLOW ---
Visit Care Team Role Provider Type RAJAT Hollins Attending Provider Non-Staff Primary Care Provider Referring Provider Specialty: Nursing Address: [address] [place] [address], [id number] Email: Modified Barium Swallow Study COATING MIXER Modified Barium Swallow Study Start: 09/27/23 14:59 Freq: Status: Active Protocol: Document 09/27/23 15:05 LNK (Rec: 09/27/23 15:37 LNK [id number]) Modified Barium Swallow Study Total Time Visit Start Time 10:00 Visit Stop Time 10:30 Total Visit Minutes [address] Serena Morley Reason for Referral dysphagia Setting Setting Outpatient Care Patient Information Identification Type Name,Date of Patient History Pt was seen for a Modified Barium Swallow Study at the referral of his PCP, Dr Morley. Pt has a reported PMH of esophageal stricture and epigastric pain. He described his swallow as foods/liquids stopping mid chest. He will need to drink more liquid to push it down. He has regurgitated undigested foods in the past. Pt reported he has an appointment with a GI specialist on 11/01/23. Subjective Observations Pt was seated in the fluoroscopy chair with procedure and directions described for him. He indicated he understood and agreed to proceed. Patient Positioning Position View Lat-A/P Imaging Lateral View Textures Administered Trials Presented Thin Liquid via Spoon (IDDSI 0 ),Thin Liquid via Cup (IDDSI 0 ),Extremely Thick Liquid via Spoon (IDDSI 4),Regular (IDDSI 7) Barium Tablet Yes The IDDSI Framework Protocol: IDDSI.1 Oral Impairment Source: The Modified Barium Swallow Impairment Profile (MBSImP??) Lip Closure No labial escape Tongue Control During Bolus Hold Cohesive bolus between tongue to palatal seal Bolus Preparation/Mastication Timely & efficient chewing & mashing Bolus Transport/Lingual Motion Brisk tongue motion Oral Residue Complete oral clearance Initiation of Pharyngeal Swallow Bolus head in valleculae Additional Oral Impairment Observations OME and DKS were observed to be WNL. Mastication was adequate with a rotary chew pattern, good bolus control, formation and AP transition. Oral phase is WNL Pharyngeal Impairment Source: The Modified Barium Swallow Impairment Profile (MBSImP??) Soft Palate Elevation No bolus between soft palate & pharyngeal wall Laryngeal Elevation Part.sup.move.thyroid cart/ part.approx.arytenoids to epiglot.petiole Anterior Hyoid Excursion Partial anterior movement Epiglottic Movement Complete inversion Laryngeal Vestibular Closure Complete; no air/contrast in laryngeal vestibule Pharyngeal Stripping Wave Present - complete Pharyngoesophageal Segment Opening Complete distention & complete duration; no obstruction of flow Tongue Base Retraction Trace column of contrast/air betwn tongue base & post. pharyngeal wall Pharyngeal Residue Complete pharyngeal clearance Additional Pharyngeal Impairment Mild tongue base retraction Observations strength, hyolaryngeal elevation and movement noted. Overall pharyngeal phase was noted to be WFL. A/P View Textures Administered Trials Presented Thin Liquid via Spoon (IDDSI 0 ) The IDDSI Framework Protocol: IDDSI.1 A/P View Observations Pharyngeal Contraction Complete Esophageal Clearance Upright Position Minimal to no esophageal clearance Vocal Fold Function Good Esophageal Function Slowed Clearing,Poor Motility, Reverse Peristalsis,Stasis, Narrowing Additional A-P Observations AP view indicated pts esophagus was over half full of contrast. Pt reported a sensation of his esophagus being full and the liquid/ solid trials were stuck. Narrowing of the esophagus was noted near the LES. A barium tablet was unable to enter the stomach and remained in the distal esophagus over a minute . The MBSS was discontinued at that time. Clinical Impressions Dysphagia Type Esophageal Findings See AP observations for details Recommend GI (pt has appt 11/01/2023 Patient Appropriate for Therapy No Recommendations Diet Comments No change in diet recommended
== END ==
LOC: RAD 09:20
PROVIDERS: PCP Nurse Practitioner Family; Referring Provider Nurse Practitioner Family; Visit Provider Nurse Practitioner Family
DX: K22.4 Dyskinesia of esophagus (principal); R10.13 Epigastric pain; Z87.19 Personal history of other diseases of the digestive system
CPT/HCPCS: 74230; 92611

== ENCOUNTER 2024-06-08 23:53 | Emergency (ER) | payer MEDICARE, OTHER, SELFPAY ==
[2020-10-30 00:02] VITALS: BMI 36.3
[2024-06-09] VITALS: BP 128/71; PULSE 82; RESP 16; TEMP 36.6; O2SAT 99; BMI 32.8
== END 2024-06-09 02:44 | disposition left against medical advice (07) ==
PROVIDERS: PCP Nurse Practitioner Family
DX: R10.13 Epigastric pain (principal)
CPT/HCPCS: 99281